=== PATIENT | male | born 1955 | race African-American/Black ===

== ENCOUNTER 2017-03-25 23:58 | Observation (INO) ==
--- NOTE | 2017-03-26 00:11 | Emergency Department Note ---
Disposition Clinical Impression: Chest pain of uncertain etiology, Neurologic abnormality Disposition: Admitted As Inpatient Condition: Fair Time of Disposition: 04:41 General Adult HPI - General Chief complaint: ED Neuro Symptoms/Deficit Stated complaint: NUMBNESS Time Seen by Provider: 03/26/17 00:03 Source: patient, EMS Limitations: no limitations Nursing Notes Reviewed: Yes Vital Signs Reviewed: Yes - History of Present Illness HPI Narrative: Mr. Sykes, a 61yo male, presents from the [facility] medical floor for evaluation of chest pain as well as right sided numbness and tingling. Onset 23:00 concomittant with patient feeling lightheaded. On intake, he denies lightheadedness, denies chest pain. Patient currently reports numbness only of the right side of his face. No slurring of speech. No difficulty chewing or handling his secretions. As his history of A. fib on anticoagulant unknown to him. No history CVA, TIA Pain Scale: 6 - Related Data Home Medications Medication Instructions Recorded Confirmed Divalproex (12 HR) [Depakote (12 1,000 mg PO BID 07/30/16 07/30/16 HR)] Fluphenazine [Prolixin] 10 mg PO TID 07/30/16 07/30/16 cloNIDine HCl [CloNIDine HCl] 0.1 mg PO DAILY 07/30/16 07/30/16 Allergies Allergy/AdvReac Type Severity Reaction Status Date / Time No Known Allergies Allergy Verified 03/25/17 23:59 All systems ED: reviewed and negative except as stated. Review of Systems: As Per HPI Past Medical History - Past Medical History Medical history: Reports: aortic aneurysm, atrial fibrillation, COPD, hyperlipidemia, hypertension, other Surgical history: Reports: non-contributory Psychiatric history: Reports: anxiety, bipolar, depression, PTSD, schizophrenia , other - Social History Smoking Status: Former smoker Smokeless Tobacco Status: No Alcohol use: Reports: none Drug use: Reports: none Physical Exam Vital Signs Reviewed General: Patient is alert, oriented, and in no acute distress. HEENT: No facial asymmetry. Head is normocephalic and atraumatic. PERRLA, EOMI. oral mucosa moist. Trachea midline. Cardiovascular: Heart regular rate and rhythm without clicks, rubs, gallops, or murmurs. No JVD. PMI nondisplaced. 1+ bilateral pitting edema. Venous stasis changes bilateral lower extremities. Respiratory: Symmetric chest rise with good respiratory effort. Bilateral breath sounds are clear without wheezing, crackles, or rhonchi. Abdomen: Bowel sounds present normoactive x-4 quadrants. Abdomen is soft, nondistended, and nontender. No organomegaly noted. Musculoskeletal: Muscle strength 5/5 and symmetric bilaterally in upper and lower extremities. Neuro: Decreased sensation to patient's right V1, V2, V3; otherwise cranial nerves II through XII intact. Sensation to light touch intact patient's upper and lower extremities bilaterally and equal. No pronator drifts. No limb drift. No slurring of speech. Appropriately and quickly answers all questions. Alert and oriented 4. GCS 15. Psych: Patient's affect is appropriate for situation. - General Limitations: no limitations General appearance: alert, in no apparent distress Course Course Narrative: Patient has strength that is intact. Sensation is intact in his extremities. His only deficit is a decreased sensation of his right face in V1, V2, V3 distribution which she described as, "not sharp." He has no slurring of speech and no facial asymmetry. We will not call a code stroke at this time. Will work patient up as if he were a stroke as well as adding chest pain workup. [facility] documentation: PMH: Systolic CHF, atrial fibrillation, DANIEL, hypertension, GERD, BPH, COPD, tobacco use, obesity, schizoaffective disorder bipolar type. Anticoagulant:apixiban Antiplatelet: None [facility]: Nose. No perfusion defects, LVEF 58%. Normal LV wall motion and perfusion. CT head is negative for acute intracranial abnormalities. Chest x-ray unremarkable. EKG shows A. fib. With no acute ST-T changes. Troponin below upper limit of normal. Patient's lab work shows a mild elevation in creatinine above his baseline. I discussed the patient with the admitting hospitalist, Dr. blaine willis, who agrees to accept the patient for chest pain rule out ACS as well as continue neurologic assessment. Chest X-Ray 03/26/17 00:04 IMPRESSION: No acute abnormality. D/ / Jose Angel Osborne MD / Jose Angel Osborne MD Interpreting Provider: Jose Angel Osborne MD Head CT 03/26/17 01:58 IMPRESSION: No acute intracranial abnormality. D/ / Tonny Ohara MD / Tonny Ohara MD Interpreting Provider: Tonny Ohara MD Vital Signs O2 Sat by Pulse Oximetry 97 03/25/17 23:58 Temperature 98.3 F 03/26/17 04:15 Pulse Rate 102 03/26/17 04:15 Respiratory Rate 18 03/26/17 04:15 Blood Pressure 128/85 03/26/17 04:15 O2 Sat by Pulse Oximetry 93 03/26/17 04:15 Oxygen Delivery Oxygen Delivery Room Air Medical Decision Making - Medical Records Medical records reviewed: Yes I reviewed the patient's medical records. - Lab Data Result diagrams: 03/26/17 00:10 03/26/17 00:10 Lab Results 03/26/17 03/26/17 03/26/17 Range/Units 00:10 00:10 00:10 WBC 10.7 (4.3-11.1) K/mcL RBC 4.86 (4.19-5.50) M/mcL Hgb 13.9 (12.9-16.9) g/dL Hct 43.1 (37.5-50.1) % MCV 88.7 (83.0-100.0) fL MCH 28.6 (28.0-33.3) pg MCHC 32.3 (31.6-35.5) g/dL RDW 15.9 H (11.5-14.5) % Plt Count 171 (140-400) K/mcL MPV 11.6 (9.4-12.4) fL Immature Gran % 0.3 (0-4) % Seg Neutrophils % 47.3 % Lymphocytes % 39.5 % Monocytes % 10.0 % Eosinophils % 2.2 % Basophils % 0.7 % Neutrophils # 5.1 (1.6-8.9) K/mcL Lymphocytes # 4.2 (0.6-4.6) K/mcL Monocytes # 1.1 (0.0-1.3) K/mcL Eosinophils # 0.2 (0.0-0.6) K/mcL Basophils # 0.1 (0.0-0.2) K/mcL PT 12.1 (9.4-12.1) Seconds INR 1.1 APTT 30.5 (26.0-36.0) Seconds Sodium 140 (136-145) mEq/L Potassium 4.2 (3.5-4.5) mEq/L Chloride 100 (98-109) mEq/L Carbon Dioxide 33 H (19-29) mEq/L BUN 24 (8-26) mg/dL Creatinine 1.44 H (0.72-1.25) mg/dL Est GFR ( Amer) > 60 (> 60) Est GFR (Non-Af Amer) 50 L (> 60) BUN/Creatinine Ratio 17 (6-26) Glucose 122 H (70-99) mg/dL Calculated Osmolality 295 (280-300) Calcium 9.5 (8.6-10.8) mg/dL Troponin I (0-0.03) ng/mL 03/26/17 Range/Units 00:10 WBC (4.3-11.1) K/mcL RBC (4.19-5.50) M/mcL Hgb (12.9-16.9) g/dL Hct (37.5-50.1) % MCV (83.0-100.0) fL MCH (28.0-33.3) pg MCHC (31.6-35.5) g/dL RDW (11.5-14.5) % Plt Count (140-400) K/mcL MPV (9.4-12.4) fL Immature Gran % (0-4) % Seg Neutrophils % % Lymphocytes % % Monocytes % % Eosinophils % % Basophils % % Neutrophils # (1.6-8.9) K/mcL Lymphocytes # (0.6-4.6) K/mcL Monocytes # (0.0-1.3) K/mcL Eosinophils # (0.0-0.6) K/mcL Basophils # (0.0-0.2) K/mcL PT (9.4-12.1) Seconds INR APTT (26.0-36.0) Seconds Sodium (136-145) mEq/L Potassium (3.5-4.5) mEq/L Chloride (98-109) mEq/L Carbon Dioxide (19-29) mEq/L BUN (8-26) mg/dL Creatinine (0.72-1.25) mg/dL Est GFR ( Amer) (> 60) Est GFR (Non-Af Amer) (> 60) BUN/Creatinine Ratio (6-26) Glucose (70-99) mg/dL Calculated Osmolality (280-300) Calcium (8.6-10.8) mg/dL Troponin I 0.01 (0-0.03) ng/mL - EKG Data EKG #1 EKG attestation: Yes I reviewed and interpreted this EKG. EKG results narrative: EKG dated 03/26/17 at 00:05 interpreted as atrial fibrillation with RVR; rate of 105. Normal axis. Appropriately narrow QRS complex. Specific ST-T changes. Compared to previous dated 07/31/2016 showing no acute ischemic changes comparison. Attestation Statement - Attestation Attestation: I, Jaime Valadez MD, personally evaluated this patient and discussed their management with the resident physician. I reviewed the resident's note and agree with the documented findings, medical decision making, and plan of care. 61-year-old male who was transferred here from the [facility] for evaluation of chest pain and also possible stroke symptoms. Patient has a history of atrial fibrillation with RVR. He apparently has chronic atrial fibrillation and is anticoagulated on Eliquis. Tonight he complained of some chest pain and the hospitalist reports that when she went to examine him for the chest pain while she was checking him he complained that he felt very lightheaded and developed numbness and tingling in the right side of his face and his right arm and his right leg. He had no weakness. No facial droop. No slurred speech. EKG at the [facility] just showed atrial fibrillation. Patient referred here for further evaluation of his chest pain and numbness. On arrival here patient only complains of numbness in the right side of his face and a little tingling in his right foot. The arm has resolved and the mid leg has mostly resolved. The chest pain was in the left shoulder area radiating down towards the sternum. This has also resolved. He denies any shortness of breath or diaphoresis. No palpitations. No syncope. On examination patient is a well-developed well-nourished male in no acute distress. He is alert and oriented 3. There is no diaphoresis. Chest is nontender to palpation. Breath sounds are clear and equal bilaterally. Heart irregularly irregular. Normal rate. Abdomen soft and nontender with normal bowel sounds. No gross focal neurological deficits. Equal car electronics installer strength bilaterally. Head CT negative. Chest x-ray negative. EKG shows atrial fibrillation with RVR. No acute changes noted. Labs reviewed. The hospitalist, Dr. Capone, was consulted and accepted the admission of the patient. NIH Stroke Scale - Level of Consciousness LOC: Alert - LOC Questions LOC Questions: Answers both correctly - LOC Commands LOC Commands: Performs both correctly - Best Gaze Best Gaze: Normal - Visual Visual: No visual loss - Facial Palsy Facial Palsy: Normal - Motor Arms Motor Arm-Left: No drift for 10 seconds Motor Arm-Right: No drift for 10 seconds - Motor Legs Motor Leg-Left: No drift for 5 seconds Motor Leg-Right: No drift for 5 seconds - Limb Ataxia Limb Ataxia: Absent of affected limb too weak to perform exam - Sensory Sensory: Mild to moderate loss, "not as sharp" - Best Language Best Language: No aphasia - Dysarthria Dysarthria: Normal - Extinction and Inattention Extinction and Inattention: Normal - NIHSS Total Score NIHSS Total Score: 1
[2017-03-26 00:23] LABS: Basophils # 0.1 K/mcL (0.0-0.2); Basophils % 0.7 %; Eosinophils # 0.2 K/mcL (0.0-0.6); Eosinophils % 2.2 %; Hematocrit 43.1 % (37.5-50.1); Hemoglobin 13.9 g/dL (12.9-16.9); Immature Granulocytes % 0.3 % (0-4); Lymphocytes # 4.2 K/mcL (0.6-4.6); Lymphocytes % 39.5 %; Mean Corpuscular HGB Conc 32.3 g/dL (31.6-35.5); Mean Corpuscular Hemoglobin 28.6 pg (28.0-33.3); Mean Corpuscular Volume 88.7 fL (83.0-100.0); Mean Platelet Volume 11.6 fL (9.4-12.4); Monocytes # 1.1 K/mcL (0.0-1.3); Neutrophils # 5.1 K/mcL (1.6-8.9); Platelet Count 171 K/mcL (140-400); Red Blood Count 4.86 M/mcL (4.19-5.50); Red Cell Distribution Width 15.9 % (11.5-14.5); Segmented Neutrophils % 47.3 %
[2017-03-26 00:29] LABS: INR 1.1; Prothrombin Time 12.1 Seconds (9.4-12.1)
[2017-03-26 00:31] LABS: Activated Partial Thrombo Time 30.5 Seconds (26.0-36.0)
[2017-03-26 00:35] LABS: BUN/Creatinine Ratio 17 (6-26); Blood Urea Nitrogen 24 mg/dL (8-26); Calcium 9.5 mg/dL (8.6-10.8); Carbon Dioxide 33 mEq/L (19-29); Chloride 100 mEq/L (98-109); Glucose 122 mg/dL (70-99); Osmolality,Calculated 295 (280-300); Potassium 4.2 mEq/L (3.5-4.5); Sodium 140 mEq/L (136-145); eGFR For African Americans > 60 (> 60); eGFR For Non-African Americans 50 (> 60)
[2017-03-26] MEDS ORDERED: Acetaminophen 325 MG TABLET PO PRN (04:55)
[2017-03-26] MEDS ORDERED: Naloxone 0.4 MG/ML INJ IVP PRN (04:55)
[2017-03-26] MEDS ORDERED: Ondansetron 4 MG/2 ML VIAL IVP PRN (04:55)
[2017-03-26] MEDS ORDERED: *HR* HYDROcodone/Acet 5/325 mg TABLET PO PRN (04:55)
--- NOTE | 2017-03-26 05:05 | Internal Med History&Physical ---
Date of Encounter: 03/26/17 Time of Encounter: 05:02 Assessment and Plan (1) Transient ischemic attack Current visit: Yes Status: Acute Patient describes sudden onset right-sided numbness of the upper extremity and right side of the face as well as some nonspecific bilateral lower extremity and feet numbness. We will admit to the hospital. Perform frequent neurologic checks per protocol. Start telemetry. Obtain MRI of the head and MRA of the head and neck. Echocardiogram. Start aspirin. Bedside swallow evaluation. PT OT. Qualifiers: Transient cerebral ischemia type: carotid artery syndrome (hemispheric) Qualified Code(s): G45.1 - Carotid artery syndrome (hemispheric) (2) CHF (congestive heart failure) Current visit: Yes Status: Acute He was being treated at [facility] for CHF. Currently appears euvolemic. We will obtain updated medication list from the [facility] and resume while inpatient. Qualifiers: Congestive heart failure type: diastolic Congestive heart failure chronicity: chronic Qualified Code(s): I50.32 - Chronic diastolic (congestive ) heart failure (3) Chronic a-fib Current visit: Yes Status: Acute Continue chronic anticoagulation with Alquist. (4) Schizophrenia Current visit: No Status: Acute Update psychiatric medication list from the [facility] records and resume home regimen. Qualifiers: Schizophrenia type: unspecified Qualified Code(s): F20.9 - Schizophrenia, unspecified (5) Chest pain of uncertain etiology Current visit: Yes Status: Acute Trend troponin to rule out ACS. Internal Medicine - H&P: HPI Chief complaint: Right-sided numbness Admitted From: Emergency Dept Plans for Post Hospital Care: Home History of present illness: Mr. Sykes is a 61 year old male with past medical history significant for atrial fibrillation, hypertension and CHF who presented to the hospital sent from the inpatient alberto at the [facility] for evaluation of right sided numbness. He started having bilateral leg and feet numbness and arm numbness mostly on the right side as well as facial numbness which started last night around 7 PM. He denies any associated chest pain shortness of breath vision loss or headache. He was sent to be evaluated in our hospital. On presentation his NIH stroke scale was 1. He was not a candidate for TPA due to timing of his symptoms. He was referred for admission. A 10 point review of systems was negative. Family history pertinent for colon cancer in the patient's father. Social history: Remote history of smoking, denies alcohol or drug use. Past Med Surg Social Fam HX - Past Medical History Medical history: aortic aneurysm, atrial fibrillation, COPD, hyperlipidemia, hypertension, other Psychiatric history: anxiety, bipolar, depression, PTSD, schizophrenia, other - Past Surgical History Surgical History: non-contributory - Social History Smoking Status: Former smoker Smokeless Tobacco Status: No Alcohol use: none Drug use: none Internal Medicine - H&P: Meds Divalproex (12 HR) [Depakote (12 HR)] 1,000 mg PO BID 07/30/16 [History] Fluphenazine [Prolixin] 10 mg PO TID 07/30/16 [History] cloNIDine HCl [CloNIDine HCl] 0.1 mg PO DAILY 07/30/16 [History] 3 Allergy/AdvReac Type Severity Reaction Status Date / Time No Known Allergies Allergy Verified 03/25/17 23:59 All Systems PM: A 10-system review of systems was performed and is negative for pertinent findings except as documented above in the HPI. - Constitutional Vitals: Temp Pulse Resp BP Pulse Ox 98.3 F 102 18 128/85 93 03/26/17 04:15 03/26/17 04:15 03/26/17 04:15 03/26/17 04:15 03/26/17 04:15 General appearance: Present: A&O X 3, no acute distress - Eye Eye exam: Present: PERRL, conjuntiva pink, sclera anicteric Pupils: Present: PERRL - Respiratory Respiratory exam: Present: CTAB. Absent: accessory muscle use, rales, rhonchi, wheezes - Cardiovascular Cardiovascular exam: Present: irregular rhythm, +S1, +S2. Absent: diastolic murmur, gallop, rubs, systolic murmur - GI/Abdominal GI/Abdominal exam: Present: normal bowel sounds, soft, no peritoneal signs. Absent: distended, tenderness - Extremities Exam Extremities exam: Present: warm, radial pulses palpable and symmetrical. Absent : calf tenderness, cyanotic, pedal edema - Neurological Exam Neurological exam: Present: alert, CN II-XII intact, oriented X3, no focal deficits, strengths equal and symetr throughout. Absent: altered, motor sensory deficit, pronater drift, facial droop, speech deficit - Skin Skin exam: Present: dry, intact Internal Med - H&P Results - Labs CBC & Chem 7: 11/26/17 00:10 03/26/17 00:10 - EKG Data -: EKG Interpreted by Myself (Atrial fibrillation RVR 10 5 bpm, nonspecific ST and T wave changes.)
[2017-03-26] MEDS: Aspirin 81 MG TAB.CHEW PO SCH (11:31)
[2017-03-26] MEDS: APIXABAN 5 MG TABLET PO SCH ×2 (11:31→20:59)
[2017-03-27 04:07] LABS: Basophils # 0.1 K/mcL (0.0-0.2); Basophils % 0.9 %; Eosinophils # 0.2 K/mcL (0.0-0.6); Eosinophils % 2.2 %; Hematocrit 40.1 % (37.5-50.1); Hemoglobin 12.8 g/dL (12.9-16.9); Immature Granulocytes % 0.4 % (0-4); Lymphocytes # 3.4 K/mcL (0.6-4.6); Lymphocytes % 37.4 %; Mean Corpuscular HGB Conc 31.9 g/dL (31.6-35.5); Mean Corpuscular Hemoglobin 28.6 pg (28.0-33.3); Mean Corpuscular Volume 89.7 fL (83.0-100.0); Mean Platelet Volume 11.3 fL (9.4-12.4); Neutrophils # 4.4 K/mcL (1.6-8.9); Platelet Count 148 K/mcL (140-400); Red Blood Count 4.47 M/mcL (4.19-5.50); Red Cell Distribution Width 15.9 % (11.5-14.5); Segmented Neutrophils % 48.1 %
[2017-03-27 04:26] LABS: BUN/Creatinine Ratio 21 (6-26); Blood Urea Nitrogen 22 mg/dL (8-26); Calcium 9.2 mg/dL (8.6-10.8); Carbon Dioxide 30 mEq/L (19-29); Chloride 104 mEq/L (98-109); Chol/HDL Ratio 4.3 (0-4.9); Cholesterol 158 mg/dL (< 200); Glucose 95 mg/dL (70-99); HDL Cholesterol 37 mg/dL (40-59); LDL Cholesterol,Calculated 101 mg/dL (0-99); Magnesium 2.1 mg/dL (1.6-2.6); Osmolality,Calculated 291 (280-300); Potassium 4.3 mEq/L (3.5-4.5); Sodium 139 mEq/L (136-145); Triglycerides 98 mg/dL (< 150); eGFR For African Americans > 60 (> 60); eGFR For Non-African Americans > 60 (> 60)
[2017-03-27] MEDS: Aspirin 81 MG TAB.CHEW PO SCH (09:11)
[2017-03-27] MEDS: APIXABAN 5 MG TABLET PO SCH ×2 (09:11→22:04)
[2017-03-27] MEDS: Divalproex (12 HR) 500 MG TABLET PO SCH (09:11)
--- NOTE | 2017-03-27 16:11 | Discharge Summary ---
Date of Encounter: 03/27/17 Time of Encounter: 11:00 - Discharge Diagnosis (1) Neurologic abnormality Priority: Primary Status: Acute - Discharge Medications Home Medications: Ammonium Lactate [Amlactin] 1 appl TP DAILY 03/27/17 [History] Levalbuterol Neb [Xopenex Neb] 1.25 mg IH Q4H 03/27/17 [History] Allergies/Adverse Reactions: 3 Allergy/AdvReac Type Severity Reaction Status Date / Time No Known Allergies Allergy Verified 03/25/17 23:59 Procedures/tests Complete & Pending: Procedures Performed prior 72 hours Category Date Time Status MR angio head wo con [MR] Routine MRI 03/27/17 04:57 Draft MR angio neck wo/w con [MR] Routine MRI 03/27/17 04:57 Draft MR head/brain wo con [MR] Routine MRI 03/27/17 04:57 Draft EV echocardiogram Routine Y 03/26/17 04:59 Completed Date of admission: 03/26/17 03:45 [facility] care physician: [facility] Consults: 03/26/17 04:56 Consult to Occupational Therapy [CONS] Routine Comment: Evaluate, develop and implement POC Reason for Consult: TIA Consult to Physical Therapy [CONS] Routine Comment: Evaluate, develop and implement POC Reason for Consult: TIA - Patient Status Disposition: Transfer [facility] Condition: Fair - Discharge Instructions Follow Up With: [facility] [Primary Care Provider] - Hospital course: Patient is a 61-year-old male with past medical history significant for atrial fibrillation, hypertension and CHF who presented to the ER on 03/26/17 from the [facility] for evaluation of right sided altered sensation. Patient experienced bilateral altered sensation in the right upper and lower extremity in addition to altered facial sensation that occurred the evening of admission. He was sent to [facility] for evaluation. On presentation his NIH stroke scale was 1. He was not a candidate for TPA due to timing of his symptoms. He was admitted to the medical floor for further workup and evaluation. During patients hospital stay, his symptoms resolved and workup was negative including no acute findings on MRI of the brain or MRA of neck/head; echocardiogram without any significant findings as well. Patient will be discharged back to the [facility] unit at the [facility]. - Time Spent with Patient Total time spent providing and/or coordinating discharge services: Less than 30 minutes - Constitutional Vitals: Temp Pulse Resp BP Pulse Ox 98.2 F 66 16 158/101 93 03/27/17 15:17 03/27/17 15:17 03/27/17 15:17 03/27/17 15:17 03/27/17 15:17 General appearance: Present: A&O X 3, no acute distress - Neurological Exam Neurological exam: Present: oriented X3, no focal deficits. Absent: facial droop, speech deficit
--- NOTE | 2017-03-27 16:12 | Physician Discharge Referral ---
ExtendedCare Referral Info Transfer To: [facility] at the [place] - Diagnosis (1) Neurologic abnormality Status: Acute - Transfer Medications Home Medications: Ammonium Lactate [Amlactin] 1 appl TP DAILY 03/27/17 [History] Levalbuterol Neb [Xopenex Neb] 1.25 mg IH Q4H 03/27/17 [History] Allergies/Adverse Reactions: 3 Allergy/AdvReac Type Severity Reaction Status Date / Time No Known Allergies Allergy Verified 03/25/17 23:59 - Respiratory Orders Smoking Cessation: Smoking cessation has been advised. For more information, call the [place] Tobacco Quit Line at 2-683-PXIYNOW. CERTIFICATION: I certify that the transfer of the above named patient to an Extended Care Facility is necessary for the continuing treatment of the diagnosis listed. The above information is true and accurate reflection of patient's current condition. Confidential - Redisclosure prohibited without a patient's written consent.
--- NOTE | 2017-03-27 20:02 | Electrocardiograph Report ---
[address] [place], [place] [address] Test Date: 2017-03-26 Pat Name: Yonathan Sykes Department: 104 Room: 3B43 Gender: M Graphic Arts Technician: Sage : 1955 Requested By: Marco Antonio Álvarez Order Number: [id number] Reading MD: Diaz Pina MD Measurements Intervals Warren Rate: 105 P: ME: 0 QRS: 51 QRSD: 83 T: 46 QT: 342 QTc: 403 Interpretive Statements ATRIAL FIBRILLATION WITH RAPID VENTRICULAR RESPONSE Electronically Signed On 03-27-2017 20:00:20 EST by Diaz Pina MD
[2017-03-28 07:03] VITALS: BP 151/121
[2017-03-28] MEDS: APIXABAN 5 MG TABLET PO SCH (08:10)
[2017-03-28] MEDS: Divalproex (12 HR) 500 MG TABLET PO SCH (08:10)
[2017-03-28] MEDS: Aspirin 81 MG TAB.CHEW PO SCH (08:10)
[2017-03-28] MEDS ORDERED: amLODIPine 5 MG TABLET PO SCH (09:00)
== END 2017-03-28 10:17 ==
LOC: EMEROO 23:58 → 3BNU 23:58 → SUATTDRO 03-26 03:45 → 3BNU 03-26 04:07
PROVIDERS: ADMIT Internal Medicine; ATTEND Hospitalist

== ENCOUNTER 2017-11-12 11:50 | Inpatient (IN) ==
[~2017-11-12 11:50] MED LIST: *HR* Etomidate 20 MG/10 ML AMPUL IVP ONE; *HR* Etomidate 40 MG/20 ML VIAL IVP ONE; *HR* Midazolam HCl 5 MG/5 ML VIAL IVP ONE; *HR* Succinylcholine 200 MG/10 ML VIAL IVP ONE
[2017-11-12] MEDS ORDERED: *HR* FentaNYL (PF) 100 MCG/2 ML VIAL ONE (14:25)
[2017-11-12] MEDS ORDERED: *HR* FentaNYL (PF) 100 MCG/2 ML VIAL IVP ONE (14:27)
[2017-11-12 14:46] LABS: ABG Base Excess 13 mEq/L (-2 to 3); ABG HCO3 44 mEq/L (21-27); ABG Oxygen Saturation 88 % (95-98); ABG PCO2 85 mmHg (35-45); ABG PH 7.32 pH Units (7.32-7.45); ABG PO2 62 mmHg (85-104); ABG TCO2 47 mEq/L (20-26); Blood Gas Modality AF; Blood Gas Respiration Rate 16; Blood Gas VT 550 cc
[2017-11-12] MEDS ORDERED: Naloxone 0.4 MG/ML INJ IVP PRN (14:50)
[2017-11-12] MEDS ORDERED: Lacri-Lube 3.5 GM TUBE BOTH EYES PRN (14:51)
--- NOTE | 2017-11-12 14:59 | Procedure Note ---
Date of procedure: 11/12/17 Pre-op diagnosis: critically ill Post-op diagnosis: same Procedure: Central Line Procedure Note: Central Venous Catheter Insertion Indication: Critically ill difficult venous access Attending Physician: Dr. Skaggs Lobsterman: Elijah Goyal Indication: This is a 62 year-old male with respiratory failure. Consent: Detailed explanation of the procedure, treatment options, risks including but not limited to infection and bleeding, and benefits were explained to the [default value]. A written informed consent was obtained. Technique: A time out was preformed identifying the correct procedure, the correct location with the nursing staff. The left groin was prepped with 2% chlorhexidine and draped with a full length sterile sheet in the usual fashion. The for moral vein was accessed under ultrasound guidance with an 18 gauge thin wall needle. A triple lumen was inserted via the seldinger technique. Blood was withdrawn from all lumens and flushed with normal saline. The catheter was sutured in place and a sterile dressing was applied over the site prior to removal of drapes. The patient tolerated the procedure well and there were no complications. Chest x ray: [default value] EBL: 5 mL Complication: I was unable to fully pass the catheter into the site and hub the catheter to the skin so this was pulled and we attempted a right IJ which was successful Anesthesia: IV sedation Surgeon: Elijah Goyal Was there an nurses assistant present: No Estimated blood loss (cc): 5 Specimen: none Pathology: none sent Condition: critical Disposition: ICU
--- NOTE | 2017-11-12 15:02 | Procedure Note ---
Date of procedure: 11/12/17 Pre-op diagnosis: Acute respiratory failure Post-op diagnosis: same Procedure: Central Line Procedure Note: Central Venous Catheter Insertion Indication: Critically ill difficult venous access Attending Physician: Dr. Skaggs Custom Leather Products Maker: Elijah Goyal Indication: This is a 62 year-old male with respiratory failure. Consent: Detailed explanation of the procedure, treatment options, risks including but not limited to infection and bleeding, and benefits were explained to the family and POA signed consent. A written informed consent was obtained. Technique: A time out was preformed identifying the correct procedure, the correct location with the nursing staff. The right neck was prepped with 2% chlorhexidine and draped with a full length sterile sheet in the usual fashion. The internal jugular vein was accessed under ultrasound guidance with an 18 gauge thin wall needle. A triple lumen was inserted via the seldinger technique. Blood was withdrawn from all lumens and flushed with normal saline. The catheter was sutured in place and a sterile dressing was applied over the site prior to removal of drapes. The patient tolerated the procedure well and there were no complications. Chest x ray: Confirmed placement] EBL: 5 mL Complication: None Anesthesia: IV sedation Surgeon: Elijah Goyal Was there an senior care assistant present: No Estimated blood loss (cc): 5 Specimen: None Pathology: none sent Condition: critical Disposition: ICU
--- NOTE | 2017-11-12 15:11 | Pulmonology History & Physical ---
Addendum entered and electronically signed by Heaven Tee 11/12/17 16:27: - Attending Attestation Addendum: Chest x-ray was obtained which indicated that the central venous catheter in the right IJ terminated in the right brachiocephalic vein. Dr. Skaggs reviewed the images and believes that it terminates in the SVC above the right atrium. A repeat chest x-ray was obtained to assess ET tube position after it was corrected, we will recheck the position of the IJ at this time as well and correct if necessary. Original Note: <Heaven Tee - Last Filed: 11/12/17 16:25> Date of Encounter: 11/12/17 Time of Encounter: 14:58 Assessment and Plan (1) Acute on chronic respiratory failure with hypercapnia Current visit: Yes Status: Acute Patient was admitted to the [facility]2017 with respiratory failure. ABGs at that time were 7.28/98/72 Patient was started on BiPAP therapy, patient's respiratory status did not improve and he was transferred to [facility] ICU patient was intubated for respiratory support, ABGs collected at this time were 7.32/85/62 Patient continues to remain hypercapnic with respiratory acidosis Patient will be managed on ventilator support to improve respiratory status Patient has a history of COPD and CHF. Current status is likely secondary to both comorbidities. He will be diuresed with Lasix as he has pitting edema in all 4 extremities as well as evidence of hepatic congestion. He will also receive DuoNeb therapy and steroids for COPD. (2) CHF (congestive heart failure) Current visit: No Status: Acute Patient has a history of CHF Echo January 2017 revealed ejection fraction of 50-55% On physical exam patient has evidence of pitting edema in all 4 extremity and hepatic congestion He will receive 40 of Lasix now and we will assess for response We will obtain repeat echo during the stay Qualifiers: Qualified Code(s): I50.32 - Chronic diastolic (congestive) heart failure (3) COPD (chronic obstructive pulmonary disease) Current visit: Yes Status: Acute Per [facility] records patient has a history of COPD, and may not be compliant with his at-home treatment Patient has been intubated for respiratory support, he will receive DuoNeb therapy and steroids He does not have any evidence on chest x-ray or labs for a pneumonia at this time. Qualifiers: Qualified Code(s): J44.9 - Chronic obstructive pulmonary disease, unspecified (4) Encephalopathy Current visit: Yes Status: [facility] patient has been encephalopathic/delirious during his stay Currently he is alert however he is not oriented to his surroundings or himself. He did have an elevated ammonia level and received lactulose at the [facility]. We will repeat a dose of lactulose and obtain an ammonia level It is unknown at this time if he has any history of liver failure, it is possible that elevated ammonia may be secondary to hepatic injury from vascular congestion from CHF. Once patient is stable we will also obtain a head CT (5) Chronic a-fib Current visit: No Status: Acute Patient has a history of A. fib [facility] the [facility] patient is on apixaban and diltiazem. (6) Schizophrenia Current visit: No Status: Chronic [facility] the [facility] patient was treated with haloperidol during his stay at the [facility] Continue to monitor mental status, obtaining CT head. It is less likely the patient's acute change in mental status is secondary to his psychiatric history. Qualifiers: Schizophrenia type: unspecified Qualified Code(s): F20.9 - Schizophrenia, unspecified History of Present Illness Chief complaint: CHF exacerbation HPI: Mr. Sykes is a 62 year old male with past medical history of COPD and CHF who was transferred from the [facility] for respiratory failure. Patient was initially admitted on 11/06/2017 to the [facility] with a COPD exacerbation and acute hypercarbic respiratory failure. ABGs at that time were 7.28/98/72. He he was also markedly encephalopathic/delirious during his stay at the [facility]. He was also suspected to have a component of CHF as he had pitting edema and a BNP of 3967 on admission and an echo from January 2017 showed ejection fraction of 50-55%. Patient was placed on BiPAP. Unfortunately patient little improvement, and over time his respiratory status declined. Today it was decided the patient would benefit from being ventilated and by receiving hemodynamic and respiratory support. Patient was transferred to [facility] or higher level of care. Patient arrived via EMS directly to the ICU, patient was awake but not alert. Patient only responded to painful stimuli with grunts and by pulling away his extremities. He had a single IV access site in place which was not functioning. Past Med Surg Social Fam HX - Past Medical History Medical history: aortic aneurysm, atrial fibrillation, COPD, hyperlipidemia, hypertension, other Additional medical history: tuberculosis, hepatitis C Psychiatric history: anxiety, bipolar, depression, PTSD, schizophrenia, other - Past Surgical History Surgical History: non-contributory Additional surgical history: Femur surgery - Social History Smoking Status: Current every day smoker Smokeless Tobacco Status: No Alcohol use: none Drug use: none - Family History Mother Living Status: Father Adopted: No Family Member Ethnicity: Non- Living Status: Hx Family Cardiac Disorders: No Hx Family Respiratory Disorders: No Hx Family Cancer: Yes Hx Family GI Disorders: No Hx Family Endocrine Disorder: No Medications and Allergies 3 Allergy/AdvReac Type Severity Reaction Status Date / Time No Known Allergies Allergy Verified 03/25/17 23:59 ROS unobtainable: due to endotracheal tube, due to mental status All Systems: The remainder of the systems were reviewed and are negative Physical Examination General appearance: other (Patient is awake however he is not alert or oriented) Eyes: nonicteric ENT: oropharynx moist Neck: supple Effort: other (Patient was on BiPAP with audible rhonchorous breath sounds and clear sputum production.) Auscultation: bilateral: rhonchi Cardiovascular: irregular rhythm Gastrointestinal: other (Abdomen is diffusely distended, liver is palpable in the right upper quadrant) Integumentary: other (Ecchymosis present in the right anterior cubital fossa.) Extremities: other (Pitting edema in all 4 extremities) Musculoskeletal: other (Pitting edema) other (Patient is awake however he is not alert.) Results - Laboratory Findings ABG ABG pH 7.32 pH Units (7.32-7.45) 11/12/17 14:40 ABG pCO2 85 mmHg (35-45) H* 11/12/17 14:40 ABG pO2 62 mmHg (85-104) L 11/12/17 14:40 ABG O2 Saturation 88 % (95-98) L 11/12/17 14:40 Abnormal lab findings: Abnormal lab results ABG pCO2 85 mmHg (35-45) H* 11/12/17 14:40 ABG pO2 62 mmHg (85-104) L 11/12/17 14:40 ABG HCO3 44 mEq/L (21-27) H 11/12/17 14:40 ABG Total CO2 47 mEq/L (20-26) H 11/12/17 14:40 ABG O2 Saturation 88 % (95-98) L 11/12/17 14:40 ABG Base Excess 13 mEq/L (-2 to 3) H 11/12/17 14:40 - Diagnostic Findings Chest x-ray: report reviewed, image reviewed <David Skaggs T - Last Filed: 11/12/17 16:50> Date of Encounter: 11/12/17 All Systems: The remainder of the systems were reviewed and are negative Physical Examination Vital Signs: Vital Signs, Last 4 Hours Temp Pulse Resp BP Pulse Ox 11/12/17 16:00 94 16 94/71 100 11/12/17 15:36 16 144/105 96 11/12/17 15:00 118 16 144/105 90 11/12/17 14:30 16 91 11/12/17 14:00 98 F 116 22 121/95 94 11/12/17 13:22 98 F 110 24 77/53 94 Results - Laboratory Findings CBC and BMP: 11/12/17 15:00 11/12/17 15:00 ABG ABG pH 7.32 pH Units (7.32-7.45) 11/12/17 14:40 ABG pCO2 85 mmHg (35-45) H* 11/12/17 14:40 ABG pO2 62 mmHg (85-104) L 11/12/17 14:40 ABG O2 Saturation 88 % (95-98) L 11/12/17 14:40 PT/INR, D-dimer PT 15.1 Seconds (9.4-12.1) H 11/12/17 15:00 Abnormal lab findings: Abnormal lab results MCH 25.9 pg (28.0-33.3) L 11/12/17 15:00 MCHC 31.2 g/dL (31.6-35.5) L 11/12/17 15:00 RDW 18.2 % (11.5-14.5) H 11/12/17 15:00 Plt Count 133 K/mcL (140-400) L 11/12/17 15:00 Nucleated RBCs/100 WBC 0.3 /100 WBC (0) H 11/12/17 15:00 PT 15.1 Seconds (9.4-12.1) H 11/12/17 15:00 ABG pCO2 85 mmHg (35-45) H* 11/12/17 14:40 ABG pO2 62 mmHg (85-104) L 11/12/17 14:40 ABG HCO3 44 mEq/L (21-27) H 11/12/17 14:40 ABG Total CO2 47 mEq/L (20-26) H 11/12/17 14:40 ABG O2 Saturation 88 % (95-98) L 11/12/17 14:40 ABG Base Excess 13 mEq/L (-2 to 3) H 11/12/17 14:40 Potassium 3.4 mEq/L (3.5-5.1) L 11/12/17 15:00 Chloride 96 mEq/L (98-107) L 11/12/17 15:00 Carbon Dioxide 41 mEq/L (23-29) H* 11/12/17 15:00 BUN 39 mg/dL (8-23) H 11/12/17 15:00 BUN/Creatinine Ratio 35 (6-26) H 11/12/17 15:00 Glucose 106 mg/dL (70-105) H 11/12/17 15:00 Calculated Osmolality 302 (280-300) H 11/12/17 15:00 Ammonia 64 mcmol/L (16-53) H 11/12/17 15:00 Albumin 3.2 g/dL (3.5-5.7) L 11/12/17 15:00 Globulin 3.6 g/dL (2.4-3.5) H 11/12/17 15:00 Albumin/Globulin Ratio 0.9 (1.1-2.2) L 11/12/17 15:00 Urine Protein 30 mg/dL (Neg-Trace) H 11/12/17 14:59 Urine Microscopic WBC 3-5 per hpf (0-3) H 11/12/17 14:59 Ur Squamous Epith Cells Many per lpf (None-Few) H 11/12/17 14:59 - Attending Attestation I have independently seen and examined the patient. I was at the bedside throughout the critical care this patient 90 minutes. 62-year-old male who had been inpatient from the [facility], transferred here for encephalopathy secondary to acute hypoxic and hypercapnic respiratory failure, hepatic encephalopathy, CHF exacerbation with anasarca. On arrival the patient was disoriented, and not responsive. He grunts to noxious stimuli. He has no jaundice, diminished air sounds bilaterally with diffuse crackles. Heart sounds S1 and S2. Abdomen was soft and nontender hepatomegaly plus plus, bilateral upper and lower extremity pitting pedal edema. The patient was transferred without of functioning peripheral line, we placed a femoral left central venous catheter which was lost, and placed a right IJ CVC, emergently intubated the patient. He is admitted to critical care unit for management of acute hypoxic and hypercapnic respiratory failure, acute encephalopathy secondary to hypoxia, hypercapnia, and elevated ammonia, hypoxic encephalopathy, CHF exacerbation, suspect hospital-acquired pneumonia, Patient has a history of atrial fibrillation and schizophrenia which are chronic. Continue mechanical ventilation and ICU care, obtain stat ABG in the next 2 hours, Lasix twice a day, acetazolamide 500 mg IV 3 doses, continue lactulose, vancomycin and Zosyn after cultures have been drawn, chest, abdomen and pelvis CAT scan. 90 minutes of critical care provided was present prior to procedures. Rest of details as in the resident physicians documentation.
[2017-11-12 15:16] LABS: Bilirubin,Urine Negative (Negative); Blood,Urine Negative (Negative); Clarity,Urine Clear (Clear); Color,Urine Yellow (Yellow); Glucose,Urine (UA) Normal (Normal); Ketones,Urine Negative (Negative); Leukocyte Esterase,Urine Negative (Negative); Nitrite,Urine Negative (Negative); Protein,Urine 30 mg/dL (Neg-Trace); Specific Gravity,Urine 1.022 (1.010-1.025); Urobilinogen,Urine Normal (Normal)
[2017-11-12 15:18] LABS: Basophils % 0.1 %; Eosinophils # 0.1 K/mcL (0.0-0.6); Eosinophils % 0.5 %; Hematocrit 43.9 % (37.5-50.1); Hemoglobin 13.7 g/dL (12.9-16.9); Immature Granulocytes % 0.9 % (0-4); Lymphocytes # 2.2 K/mcL (0.6-4.6); Lymphocytes % 22.7 %; Mean Corpuscular HGB Conc 31.2 g/dL (31.6-35.5); Mean Corpuscular Hemoglobin 25.9 pg (28.0-33.3); Mean Corpuscular Volume 83.1 fL (83.0-100.0); Mean Platelet Volume 11.5 fL (9.4-12.4); Monocytes # 1.2 K/mcL (0.0-1.3); Monocytes % 11.9 %; Neutrophils # 6.3 K/mcL (1.6-8.9); Nucleated Red Blood Cells 0.3 /100 WBC (0); Platelet Count 133 K/mcL (140-400); Red Blood Count 5.28 M/mcL (4.19-5.50); Red Cell Distribution Width 18.2 % (11.5-14.5); Segmented Neutrophils % 63.9 %
[2017-11-12 15:19] LABS: Bacteria,Urine None Seen per hpf (None-Few); Hyaline Casts,Urine None Seen per lpf (None-Few); RBC,Urine 0-3 per hpf (0-3); Squamous Epithelial Cell,Urine Many per lpf (None-Few)
[2017-11-12 15:23] LABS: INR 1.3; Prothrombin Time 15.1 Seconds (9.4-12.1)
[2017-11-12] MEDS: FentaNYL (PF) 1,000 MCG in 0.9 % Sodium Chloride 80 ML IVC SCH ×2 (15:25→21:59)
[2017-11-12 15:26] LABS: Activated Partial Thrombo Time 29.2 Seconds (26.0-36.0)
[2017-11-12] MEDS: Dexmedetomidine HCl 400 MCG/100 ML MLS IVC SCH ×2 (15:34→21:59)
[2017-11-12 15:40] LABS: Alanine Aminotransferase 11 Units/L (7-52); Albumin 3.2 g/dL (3.5-5.7); Albumin/Globulin Ratio 0.9 (1.1-2.2); Alkaline Phosphatase 69 Units/L (34-104); Aspartate Amino Transferase 22 Units/L (13-39); BUN/Creatinine Ratio 35 (6-26); Bilirubin,Total 0.7 mg/dL (0.3-1.0); Blood Urea Nitrogen 39 mg/dL (8-23); Carbon Dioxide 41 mEq/L (23-29); Chloride 96 mEq/L (98-107); Globulin 3.6 g/dL (2.4-3.5); Glucose 106 mg/dL (70-105); Osmolality,Calculated 302 (280-300); Potassium 3.4 mEq/L (3.5-5.1); Sodium 141 mEq/L (136-145); Total Protein 6.8 g/dL (6.4-8.9); eGFR For African Americans > 60 (> 60); eGFR For Non-African Americans > 60 (> 60)
--- NOTE | 2017-11-12 15:53 | Procedure Note ---
Date of procedure: 11/12/17 Pre-op diagnosis: Respiratory failure Post-op diagnosis: same Procedure: Procedure: Endotracheal intubation Date: 11/12/2017 Time: 18:21 Casting Associate: Dr. Heaven Tee DO Attending: Dr. Giles MD Indication:Respiratory Failure The patient was placed in supine position. All equipment was checked and operational before beginning the procedure. Sedation was obtained using 50 etomidate, 100 fentanyl, and 10 versed over two attempts. Patient was paralyzed using 150 Succinylcholine. The patient was easily ventilated using an Ambu bag. There are laryngoscope using a D blade was inserted into the oropharynx at which time a grade 1 view of the vocal cords was visualized. A 7.5cm Italian endotracheal tube was inserted and visualized going through the cords. The stylet was removed. Colorimetric change was visualized on the CO2 meter. Breath sounds were heard in both lung gates. There were no breast breath sounds auscultated over the stomach. The endotracheal tube was placed at 21 cm at the lip line. Attending physician Dr. Skaggs was in attendance throughout the entirety of the procedures. A chest x-ray was ordered afterwards to assess for pneumothorax and placement of the endotracheal tube. The ET tube was found to be 11cm above the jesus alberto. The ET tube was advanced by 5cm and a repeat chest xray was obtained. The patient tolerated the procedure well without desaturation or hemodynamic compromise. Anesthesia: IV sedation Surgeon: Heaven Tee Was there an assistant program manager present: Yes Claim Attorney: Elijah Goyal Estimated blood loss (cc): 5 Specimen: none Pathology: none sent Condition: critical Disposition: ICU
[2017-11-12] MEDS ORDERED: Furosemide 40 MG/4 ML VIAL IVP ONE (15:56)
[2017-11-12] MEDS ORDERED: Lactulose Oral Soln 20 GM/30 ML UDC PO ONE (16:00)
[2017-11-12 16:56] LABS: VBG Ionized Calcium 1.09 mmol/L (1.15-1.35)
[2017-11-12] MEDS: Lacri-Lube 3.5 GM TUBE BOTH EYES SCH ×2 (16:56→20:54)
[2017-11-12 17:07] LABS: ABG Base Excess 10 mEq/L (-2 to 3); ABG HCO3 35 mEq/L (21-27); ABG Oxygen Saturation 97 % (95-98); ABG PCO2 46 mmHg (35-45); ABG PH 7.49 pH Units (7.32-7.45); ABG PO2 80 mmHg (85-104); ABG TCO2 36 mEq/L (20-26); Blood Gas Modality ASSIST CONTROL; Blood Gas Respiration Rate 16; Blood Gas VT 550 cc
[2017-11-12 17:28] LABS: Troponin I < 0.03 ng/mL (< 0.04)
[2017-11-12 17:40] LABS: Magnesium 2.6 mg/dL (1.6-2.6); Phosphorous 2.6 mg/dL (2.7-4.5)
[2017-11-12] MEDS: Potassium Chloride 40 MEQ/200 ML BAG IVPB PRN (18:26)
[2017-11-12] MEDS: Piperacillin/Tazobactam 3.375 GM in 0.9 % Sodium Chloride Mini Bag 100 ML IVPB SCH (18:26)
[2017-11-12] MEDS: Norepinephrine 4 MG in D5% in Water 250 ML IVC SCH (19:38)
[2017-11-12] MEDS: Chlorhexidine Rinse 15 ML MOUTHWASH MM SCH (20:54)
[2017-11-12] MEDS: Furosemide 40 MG/4 ML VIAL IVP SCH (20:54)
[2017-11-12] MEDS: Lactulose Oral Soln 20 GM/30 ML UDC PO SCH (20:54)
[2017-11-13] MEDS: Lacri-Lube 3.5 GM TUBE BOTH EYES SCH ×7 (00:31→23:40)
[2017-11-13] MEDS: Piperacillin/Tazobactam 3.375 GM in 0.9 % Sodium Chloride Mini Bag 100 ML IVPB SCH ×4 (00:31→23:39)
[2017-11-13 04:31] LABS: Eosinophils # 0.1 K/mcL (0.0-0.6); Eosinophils % 0.9 %; Hematocrit 42.6 % (37.5-50.1); Hemoglobin 13.3 g/dL (12.9-16.9); Immature Granulocytes % 0.5 % (0-4); Lymphocytes # 2.1 K/mcL (0.6-4.6); Lymphocytes % 19.5 %; Mean Corpuscular HGB Conc 31.2 g/dL (31.6-35.5); Mean Corpuscular Hemoglobin 25.7 pg (28.0-33.3); Mean Corpuscular Volume 82.2 fL (83.0-100.0); Mean Platelet Volume 12.3 fL (9.4-12.4); Monocytes # 1.2 K/mcL (0.0-1.3); Monocytes % 10.8 %; Neutrophils # 7.4 K/mcL (1.6-8.9); Platelet Count 108 K/mcL (140-400); Red Blood Count 5.18 M/mcL (4.19-5.50); Red Cell Distribution Width 18.6 % (11.5-14.5); Segmented Neutrophils % 68.3 %
[2017-11-13 04:31] LABS: VBG Ionized Calcium 1.07 mmol/L (1.15-1.35)
[2017-11-13 04:50] LABS: BUN/Creatinine Ratio 33 (6-26); Blood Urea Nitrogen 34 mg/dL (8-23); Calcium 8.8 mg/dL (8.6-10.3); Carbon Dioxide 38 mEq/L (23-29); Chloride 101 mEq/L (98-107); Glucose 114 mg/dL (70-105); Osmolality,Calculated 306 (280-300); Sodium 144 mEq/L (136-145); eGFR For African Americans > 60 (> 60); eGFR For Non-African Americans > 60 (> 60)
[2017-11-13 04:51] LABS: Magnesium 2.2 mg/dL (1.6-2.6); Phosphorous 1.9 mg/dL (2.7-4.5)
[2017-11-13 04:54] LABS: ABG Base Excess 12 mEq/L (-2 to 3); ABG HCO3 40 mEq/L (21-27); ABG Oxygen Saturation 98 % (95-98); ABG PCO2 62 mmHg (35-45); ABG PH 7.42 pH Units (7.32-7.45); ABG PO2 111 mmHg (85-104); ABG TCO2 42 mEq/L (20-26); Blood Gas Modality TC; Blood Gas Respiration Rate 12; Blood Gas VT 550 cc
[2017-11-13] MEDS: Potassium Chloride 40 MEQ/200 ML BAG IVPB PRN ×2 (05:06→17:38)
[2017-11-13] MEDS: Potassium Phosphate 44 MEQ in 0.9 % Sodium Chloride 250 ML IVPB PRN (05:40)
[2017-11-13] MEDS: Dexmedetomidine HCl 400 MCG/100 ML MLS IVC SCH ×5 (05:40→23:39)
[2017-11-13] MEDS: Chlorhexidine Rinse 15 ML MOUTHWASH MM SCH ×2 (08:29→20:38)
[2017-11-13] MEDS: Lactulose Oral Soln 20 GM/30 ML UDC PO SCH ×2 (08:30→20:38)
[2017-11-13] MEDS: Pantoprazole 40 MG VIAL IVP SCH (08:33)
[2017-11-13] MEDS: Furosemide 40 MG/4 ML VIAL IVP SCH ×2 (08:34→20:38)
[2017-11-13] MEDS: FentaNYL (PF) 1,000 MCG in 0.9 % Sodium Chloride 80 ML IVC SCH ×2 (08:34→21:02)
--- NOTE | 2017-11-13 08:51 | Pulmonology Consult Note ---
<Elijah Goyal - Last Filed: 11/13/17 14:12> Date of Encounter: 11/13/17 Time of Encounter: 08:50 Assessment and Plan (1) Acute on chronic respiratory failure with hypercapnia Current Visit: Yes Status: Acute Patient was [facility] to the [facility] on 11[facility]/2017 with her story failure. ABG at that time was 7.28/98/72. Patient started on BiPAP continue to have worsening her story status. [facility] ICU for further evaluation. ABG when patient arrived was 7.32/85/62. Patient was hypercapnic with respiratory acidosis. Patient was intubated and placed on the ventilator. Patient is very fluid overloaded most likely secondary to CHF. Patient was diuresis with Lasix Z continue to pitting edema. Patient is getting DuoNeb therapy as well as steroids for COPD Diamox given to help with patient's to help with patient's increase in bicarbonate (2) Encephalopathy Current Visit: Yes Status: Acute A she has been encephalopathic/delirious during his stay at the [facility]. He did have an elevated ammonia and receive lactulose at the [facility]. Repeat lactulose was given here in the ICU. We will repeat ammonia and continue to trend LFTs have been stable. This is very low likelihood of being liver cirrhosis is probably all secondary to patient's worsening CHF and COPD. Head CT was negative. Continue to monitor (3) Chronic a-fib Current Visit: No Status: Acute Patient has history of atrophic relation. Per [facility] records patient is on a apixaban and diltiazem (4) COPD (chronic obstructive pulmonary disease) Current Visit: Yes Status: Acute Patient does have history of COPD and may not be compliant with his at-home treatment. Patient was intubated for rest Tory support did receive DuoNeb therapy and steroids. Chest x-ray did not show any's kinds of pneumonia but did have pleural effusions most likely secondary to patient's CHF as well as COPD. Qualifiers: Qualified Code(s): J44.9 - Chronic obstructive pulmonary disease, unspecified (5) Schizophrenia Current Visit: No Status: Chronic Patient does have history of schizophrenia was treated with help her all during his stay at the [facility]. Continue to monitor mental status CT head was negative. Qualifiers: Schizophrenia type: unspecified Qualified Code(s): F20.9 - Schizophrenia, unspecified (6) CHF (congestive heart failure) Current Visit: No Status: Acute Patient does have history of CHF. We are giving him IV Lasix. Last echocardiogram was done in March which showed 65% ejection fraction with a dilated left atrium. Repeat echo today Continue Lasix treatment. Qualifiers: Qualified Code(s): I50.32 - Chronic diastolic (congestive) heart failure (7) DVT prophylaxis Current Visit: Yes Status: Acute Heparin subcutaneous twice a day History of Present Illness Consult date: 11/13/17 Requesting physician: David Skaggs Reason for consult: COPD, hypoxemia, pneumonia Chief complaint: Altered mental status and shortness of breath History of present illness: Mr. Sykes is a 60-year-old male with past history of COPD and CHF who is transferred from the [facility] for risk story failure. Patient was accepted into the ICU by the hospitalist. Patient was admitted on to the [facility] with COPD exacerbation and acute hyper cardiac respiratory failure. ABGs at that time her 7.28/98/72. Patient was encephalopathic at that time. There is also component of CHF with pitting edema and a BNP of almost 4000. Echo on February 07 showed an ejection fraction of 50-55%. Placed and was placed on BiPAP and was on it for proximally 4 days. They noted today patient was continuing to have very little improvement in his respiratory status did decline a became more encephalopathic. At that time decide to transfer here to the ICU for further evaluation and treatment. When patient was transported here the transfer team did not have a BiPAP machine that could change with rate so patient was nearly apneic when he came over here. Patient also only had 1 IV access of a 20-gauge in the right forearm. This had blown when patient arrives. Past Med Surg Social Fam HX - Past Medical History Medical history: aortic aneurysm, atrial fibrillation, COPD, hyperlipidemia, hypertension, other Additional medical history: tuberculosis, hepatitis C Psychiatric history: anxiety, bipolar, depression, PTSD, schizophrenia, other - Past Surgical History Surgical History: orthopedic, other Additional surgical history: Femur surgery - Social History Smoking Status: Current every day smoker Smokeless Tobacco Status: No Alcohol use: none Drug use: none - Family History Mother Living Status: Father Adopted: No Family Member Ethnicity: Non- Living Status: Hx Family Cardiac Disorders: No Hx Family Respiratory Disorders: No Hx Family Cancer: Yes Hx Family GI Disorders: No Hx Family Endocrine Disorder: No Medications and Allergies Acetaminophen [Tylenol] 975 mg PO BID PRN 11/12/17 [History] Acetaminophen [Tylenol] 975 mg PO HS 11/12/17 [History] Ammonium Lactate [Amlactin] 1 appl TP DAILY 11/12/17 [History] Apixaban [Eliquis] 5 mg PO BID 11/12/17 [History] Atorvastatin Calcium [Lipitor] 80 mg PO DAILY 11/12/17 [History] Budesonide/Formoterol 160/4.5 [Symbicort 160/4.5] 2 puff IH BIDR 11/12/17 [ History] Buprenorphine HCl [Subutex] 8 mg SL DAILY 11/12/17 [History] Chlorhexidine Rinse 15 ml MM BID 11/12/17 [History] Diltiazem HCl [Diltiazem 24Hr Cd] 240 mg PO DAILY 11/12/17 [History] Divalproex (24 HR) [Depakote ER (24 HR)] 1,500 mg PO DAILY 11/12/17 [History] Fluphenazine [Prolixin] 7.5 mg PO TID 11/12/17 [History] Ipratropium/Albuterol Neb [Duoneb] 3 ml IH Q4HR PRN 11/12/17 [History] Ipratropium/Albuterol Sulfate [Combivent Respimat Inhal [place]] 1 puff IH BID [History] Lactulose 30 gm PO TID 11/12/17 [History] Losartan [Cozaar] 25 mg PO DAILY 11/12/17 [History] Mag Hydrox/Al Hydrox/Simeth [Maalox] 15 ml PO Q6HR PRN 11/12/17 [History] Magnesium Citrate [Citroma] 296 ml PO DAILY PRN 11/12/17 [History] Magnesium Oxide [Magnesium] 400 mg PO DAILY 11/12/17 [History] Metoprolol [Lopressor] 75 mg PO BID 11/12/17 [History] Pantoprazole Sodium [Protonix] 20 mg PO BID 11/12/17 [History] Potassium Chloride [K-Tab ER] 20 meq PO DAILY 11/12/17 [History] Tamsulosin [Flomax] 0.4 mg PO HS 11/12/17 [History] Torsemide [Demadex] 40 mg PO DAILY 11/12/17 [History] hydrOXYzine HCl [Hydroxyzine HCl] 50 mg PO HS PRN 11/12/17 [History] 3 Allergy/AdvReac Type Severity Reaction Status Date / Time No Known Allergies Allergy Verified 03/25/17 23:59 ROS unobtainable: due to endotracheal tube, due to mental status All Systems: The remainder of the systems were reviewed and are negative Physical Examination Vital Signs: Vital Signs, Last 4 Hours Temp Pulse Resp BP Pulse Ox 11/13/17 08:43 99.0 F 11/13/17 07:41 14 122/87 99 11/13/17 06:00 92 12 118/83 99 11/13/17 05:24 12 115/80 99 11/13/17 05:01 99.5 F 11/13/17 05:00 86 12 118/79 99 General appearance: no acute distress, alert, other (Somnolence sedated on the ventilator) Eyes: nonicteric ENT: oropharynx moist Effort: normal Inspection: normal Auscultation: bilateral: rhonchi Cardiovascular: regular rate and rhythm Gastrointestinal: normoactive bowel sounds, soft, non-tender, non-distended Integumentary: normal Extremities: no cyanosis, no clubbing, edema (2+ pitting edema bilaterally), anasarca Musculoskeletal: no deformities, ROM normal non-focal exam, pupils equal and round, motor strength normal and symmetric Ventilator Settings Ventilator Settings: Ventilator Settings, Last 8 Hours Ventilator Tidal Volume 470 Setting Ventilator Tidal Volume 550 Setting Ventilator Tidal Volume 550 Setting Ventilator Tidal Volume 550 Setting Ventilator Tidal Volume 550 Setting Ventilator Tidal Volume 550 Setting Ventilator Tidal Volume 550 Setting Ventilator Tidal Volume 550 Setting Ventilator Tidal Volume 550 Setting Ventilator Tidal Volume 550 Setting Ventilator Tidal Volume 550 Setting Ventilator Respiratory Rate 14 Setting Ventilator Respiratory Rate 12 Setting Ventilator Respiratory Rate 12 Setting Ventilator Respiratory Rate 12 Setting Ventilator Respiratory Rate 12 Setting Ventilator Respiratory Rate 12 Setting Ventilator Respiratory Rate 12 Setting Ventilator Respiratory Rate 12 Setting Ventilator Respiratory Rate 12 Setting Ventilator Respiratory Rate 12 Setting Ventilator Respiratory Rate 12 Setting Actual Respiratory Rate 14 Actual Respiratory Rate 12 Actual Respiratory Rate 12 Actual Respiratory Rate 12 Actual Respiratory Rate 12 Actual Respiratory Rate 12 Actual Respiratory Rate 12 Actual Respiratory Rate 12 Actual Respiratory Rate 12 Actual Respiratory Rate 12 Positive End Expiratory 10 Pressure Positive End Expiratory 10 Pressure Positive End Expiratory 10 Pressure Positive End Expiratory 10 Pressure Positive End Expiratory 10 Pressure Positive End Expiratory 10 Pressure Positive End Expiratory 10 Pressure Positive End Expiratory 10 Pressure Positive End Expiratory 10 Pressure Positive End Expiratory 10 Pressure Positive End Expiratory 10 Pressure Peak Inspiratory Airway 23 Pressure Peak Inspiratory Airway 24 Pressure Peak Inspiratory Airway 24 Pressure Peak Inspiratory Airway 24 Pressure Peak Inspiratory Airway 24 Pressure Peak Inspiratory Airway 25 Pressure Peak Inspiratory Airway 25 Pressure Peak Inspiratory Airway 24 Pressure Peak Inspiratory Airway 24 Pressure Peak Inspiratory Airway 24 Pressure Results - Laboratory Findings CBC and BMP: 11/13/17 04:05 11/13/17 04:05 ABG ABG pH 7.42 pH Units (7.32-7.45) 11/13/17 04:50 ABG pCO2 62 mmHg (35-45) H 11/13/17 04:50 ABG pO2 111 mmHg (85-104) H 11/13/17 04:50 ABG O2 Saturation 98 % (95-98) 11/13/17 04:50 PT/INR, D-dimer PT 15.1 Seconds (9.4-12.1) H 11/12/17 15:00 Abnormal lab findings: Abnormal lab results MCV 82.2 fL (83.0-100.0) L 11/13/17 04:05 MCH 25.7 pg (28.0-33.3) L 11/13/17 04:05 MCHC 31.2 g/dL (31.6-35.5) L 11/13/17 04:05 RDW 18.6 % (11.5-14.5) H 11/13/17 04:05 Plt Count 108 K/mcL (140-400) L 11/13/17 04:05 Nucleated RBCs/100 WBC 0.3 /100 WBC (0) H 11/12/17 15:00 PT 15.1 Seconds (9.4-12.1) H 11/12/17 15:00 ABG pCO2 62 mmHg (35-45) H 11/13/17 04:50 ABG pO2 111 mmHg (85-104) H 11/13/17 04:50 ABG HCO3 40 mEq/L (21-27) H 11/13/17 04:50 ABG Total CO2 42 mEq/L (20-26) H 11/13/17 04:50 ABG Base Excess 12 mEq/L (-2 to 3) H 11/13/17 04:50 Potassium 3.0 mEq/L (3.5-5.1) L 11/13/17 04:05 Carbon Dioxide 38 mEq/L (23-29) H 11/13/17 04:05 BUN 34 mg/dL (8-23) H 11/13/17 04:05 BUN/Creatinine Ratio 33 (6-26) H 11/13/17 04:05 Glucose 114 mg/dL (70-105) H 11/13/17 04:05 POC Glucose 129 mg/dL (70-99) H 11/13/17 00:12 Calculated Osmolality 306 (280-300) H 11/13/17 04:05 Venous Ioniz Calcium 1.07 mmol/L (1.15-1.35) L 11/13/17 04:29 Phosphorus 1.9 mg/dL (2.7-4.5) L 11/13/17 04:05 Ammonia 64 mcmol/L (16-53) H 11/12/17 15:00 B-Natriuretic Peptide 265 pg/mL (Less than 100) H 11/12/17 15:55 Albumin 3.2 g/dL (3.5-5.7) L 11/12/17 15:00 Globulin 3.6 g/dL (2.4-3.5) H 11/12/17 15:00 Albumin/Globulin Ratio 0.9 (1.1-2.2) L 11/12/17 15:00 Urine Protein 30 mg/dL (Neg-Trace) H 11/12/17 14:59 Urine Microscopic WBC 3-5 per hpf (0-3) H 11/12/17 14:59 Ur Squamous Epith Cells Many per lpf (None-Few) H 11/12/17 14:59 - Microbiology Findings Microbiology Findings: Microbiology, Last 48 Hours 11/12/17 16:00 Sputum Culture - Preliminary Sputum 11/12/17 16:11 Blood Culture - Preliminary Peripheral Venipuncture Culture is incubating and being continuously monitored for growth. Final report to follow. - Diagnostic Findings Chest x-ray: report reviewed, image reviewed CT scan - chest: report reviewed, image reviewed - Clinical Findings Intake & Output: Intake & Output 11/12/17 11/13/17 11/13/17 23:59 07:59 15:59 Intake Total 1110 / 1110 410 / 410 Output Total 1999 250 / 250 Balance -890 / -890 -1590 / -1590 -250 / -250 Weight 120 kg Consult Discharge Plan - Plan Referrals: [facility]Primary Care Provider[facility] - <Daphne Arcos - Last Filed: 11/13/17 19:38> Date of Encounter: 11/13/17 All Systems: The remainder of the systems were reviewed and are negative Physical Examination Vital Signs: Vital Signs, Last 4 Hours Temp Pulse Resp BP Pulse Ox 11/13/17 19:26 16 104/70 98 11/13/17 18:00 128 16 85/68 74 11/13/17 17:10 17 102/74 96 11/13/17 17:00 129 16 106/69 97 11/13/17 16:28 101.5 F H 11/13/17 16:00 134 16 115/77 96 11/13/17 15:46 16 102/74 97 Ventilator Settings Ventilator Settings: Ventilator Settings, Last 8 Hours Ventilator Tidal Volume 470 Setting Ventilator Tidal Volume 470 Setting Ventilator Tidal Volume 470 Setting Ventilator Tidal Volume 470 Setting Ventilator Tidal Volume 470 Setting Ventilator Tidal Volume 470 Setting Ventilator Tidal Volume 470 Setting Ventilator Tidal Volume 470 Setting Ventilator Tidal Volume 470 Setting Ventilator Tidal Volume 470 Setting Ventilator Respiratory Rate 16 Setting Ventilator Respiratory Rate 16 Setting Ventilator Respiratory Rate 16 Setting Ventilator Respiratory Rate 16 Setting Ventilator Respiratory Rate 16 Setting Ventilator Respiratory Rate 16 Setting Ventilator Respiratory Rate 16 Setting Ventilator Respiratory Rate 16 Setting Ventilator Respiratory Rate 16 Setting Ventilator Respiratory Rate 16 Setting Actual Respiratory Rate 17 Actual Respiratory Rate 16 Actual Respiratory Rate 16 Actual Respiratory Rate 16 Actual Respiratory Rate 16 Actual Respiratory Rate 16 Actual Respiratory Rate 16 Actual Respiratory Rate 16 Actual Respiratory Rate 16 Actual Respiratory Rate 16 Positive End Expiratory 10 Pressure Positive End Expiratory 10 Pressure Positive End Expiratory 10 Pressure Positive End Expiratory 10 Pressure Positive End Expiratory 10 Pressure Positive End Expiratory 10 Pressure Positive End Expiratory 10 Pressure Positive End Expiratory 10 Pressure Positive End Expiratory 10 Pressure Positive End Expiratory 10 Pressure Peak Inspiratory Airway 33 Pressure Peak Inspiratory Airway 23 Pressure Peak Inspiratory Airway 22 Pressure Peak Inspiratory Airway 21 Pressure Peak Inspiratory Airway 21 Pressure Peak Inspiratory Airway 23 Pressure Peak Inspiratory Airway 24 Pressure Peak Inspiratory Airway 24 Pressure Peak Inspiratory Airway 24 Pressure Peak Inspiratory Airway 24 Pressure Results - Laboratory Findings CBC and BMP: 11/13/17 04:05 11/13/17 16:00 ABG ABG pH 7.42 pH Units (7.32-7.45) 11/13/17 04:50 ABG pCO2 62 mmHg (35-45) H 11/13/17 04:50 ABG pO2 111 mmHg (85-104) H 11/13/17 04:50 ABG O2 Saturation 98 % (95-98) 11/13/17 04:50 PT/INR, D-dimer PT 15.1 Seconds (9.4-12.1) H 11/12/17 15:00 Abnormal lab findings: Abnormal lab results MCV 82.2 fL (83.0-100.0) L 11/13/17 04:05 MCH 25.7 pg (28.0-33.3) L 11/13/17 04:05 MCHC 31.2 g/dL (31.6-35.5) L 11/13/17 04:05 RDW 18.6 % (11.5-14.5) H 11/13/17 04:05 Plt Count 108 K/mcL (140-400) L 11/13/17 04:05 Nucleated RBCs/100 WBC 0.3 /100 WBC (0) H 11/12/17 15:00 PT 15.1 Seconds (9.4-12.1) H 11/12/17 15:00 ABG pCO2 62 mmHg (35-45) H 11/13/17 04:50 ABG pO2 111 mmHg (85-104) H 11/13/17 04:50 ABG HCO3 40 mEq/L (21-27) H 11/13/17 04:50 ABG Total CO2 42 mEq/L (20-26) H 11/13/17 04:50 ABG Base Excess 12 mEq/L (-2 to 3) H 11/13/17 04:50 Potassium 3.2 mEq/L (3.5-5.1) L 11/13/17 16:00 Carbon Dioxide 38 mEq/L (23-29) H 11/13/17 04:05 BUN 34 mg/dL (8-23) H 11/13/17 04:05 BUN/Creatinine Ratio 33 (6-26) H 11/13/17 04:05 Glucose 114 mg/dL (70-105) H 11/13/17 04:05 POC Glucose 129 mg/dL (70-99) H 11/13/17 00:12 Calculated Osmolality 306 (280-300) H 11/13/17 04:05 Venous Ioniz Calcium 1.10 mmol/L (1.15-1.35) L 11/13/17 16:22 Ammonia 64 mcmol/L (16-53) H 11/12/17 15:00 B-Natriuretic Peptide 265 pg/mL (Less than 100) H 11/12/17 15:55 Albumin 3.2 g/dL (3.5-5.7) L 11/12/17 15:00 Globulin 3.6 g/dL (2.4-3.5) H 11/12/17 15:00 Albumin/Globulin Ratio 0.9 (1.1-2.2) L 11/12/17 15:00 Urine Protein 30 mg/dL (Neg-Trace) H 11/12/17 14:59 Urine Microscopic WBC 3-5 per hpf (0-3) H 11/12/17 14:59 Ur Squamous Epith Cells Many per lpf (None-Few) H 11/12/17 14:59 Nasal Screen MRSA (PCR) Positive (Negative) A 11/13/17 11:05 - Microbiology Findings Microbiology Findings: Microbiology, Last 48 Hours 11/12/17 16:00 Sputum Culture - Preliminary Sputum 11/12/17 16:11 Blood Culture - Preliminary Peripheral Venipuncture Culture is incubating and being continuously monitored for growth. Final report to follow. - Clinical Findings Intake & Output: Intake & Output 11/13/17 11/13/17 11/13/17 07:59 15:59 23:59 Intake Total 610 / 610 300 / 300 200 / 200 Output Total 2000 / 1999 1600 / 1600 700 / 700 Balance -1390 / -1390 -1300 / -1300 -500 / -500 Weight 120 kg - Attending Attestation I saw and evaluated this patient and my medical decision-making was reviewed with the Resident Physician. I agree with the documented findings, disposition and treatment plan as described except to the extent set forth below. We independently had [id number] contact with the patient I spent 35 minutes of Critical Care time with this patient. It involved decision making of high complexity to assess, manipulate, and support vital organ system failure and/or to prevent further life threatening deterioration of the patient's condition. The time involved in the performance of separately reportable procedures was not counted toward critical care time. Patient seen and examined at bedside Labs, radiology, chart personally reviewed. Management was reviewed during multidisciplinary critical care rounds. 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 Low- tidal volume strategy . (FiO2 as possible to keep SPO2 around 90-92% liberate PEEP after FiO2 has come down Cards: And hemodynamically stable echo showed EF of 55% acute on chronic diastolic heart failure. Diuresing as tolerated. FEN-GI: As per dietary recommendations.will evaluate for any underlying liver disease Renal: Absent output were reviewed ID: Patient is more a fluid overload , will empirically cover for pneumonia will soon descalate antibiotics . Heme/Onc:To continue DVT prophylaxis Endo: Glucose Monitored Integ/MSK: Skin Care per routine ICU Nursing Protocol to prevent ulcers. Lines: All lines examined without evidence of infection : Dispo: Critically ill CODE: Full Code
[2017-11-13] MEDS: Ipratropium/Albuterol Neb 3 ML IH SCH ×4 (11:10→23:00)
[2017-11-13] MEDS: Norepinephrine 4 MG in D5% in Water 250 ML IVC SCH (15:26)
[2017-11-13] MEDS ORDERED: Acetaminophen IV 1,000 MG/100 ML INFUS..BTL IVPB ONE (15:46)
[2017-11-13 16:37] LABS: Phosphorous 3.1 mg/dL (2.7-4.5); Potassium 3.2 mEq/L (3.5-5.1)
[2017-11-13] MEDS ORDERED: *HR* Metoprolol 5 MG/5 ML VIAL IVP ONE (16:46)
[2017-11-13] MEDS ORDERED: Vancomycin 1,750 MG in 0.9 % Sodium Chloride 250 ML IVPB SCH (17:00)
[2017-11-13] MEDS: *HR* Heparin 5,000 UNIT/ML VIAL SQ SCH (17:12)
--- NOTE | 2017-11-13 18:44 | Electrocardiograph Report ---
[address] [address] Test Date: 2017-11-12 Pat Name: Yonathan Sykes Department: 109 Room: [facility] Gender: M Mate Fourth: JESSICA : 1955 Requested By: Elijah Goyal Order Number: [id number] Reading MD: James Silva Measurements Intervals [place] Rate: 121 P: [place]: 0 QRS: 60 QRSD: 92 T: 0 QT: 277 QTc: 349 Interpretive Statements ATRIAL FIBRILLATION WITH RAPID VENTRICULAR RESPONSE NONSPECIFIC T-WAVE ABNORMALITY Electronically Signed On 11-13-2017 18:43:16 EDT by James Silva
[2017-11-13] MEDS ORDERED: Perflutren Lipid Microsphere 1.3 ML in 0.9 % Sodium Chloride 8.7 ML IVP ONE (20:40)
[2017-11-14] MEDS: Ipratropium/Albuterol Neb 3 ML IH SCH ×6 (03:42→23:02)
[2017-11-14 04:31] LABS: Eosinophils # 0.1 K/mcL (0.0-0.6); Eosinophils % 0.7 %; Hematocrit 41.6 % (37.5-50.1); Hemoglobin 13.1 g/dL (12.9-16.9); Immature Granulocytes % 0.6 % (0-4); Immature Platelets 8.1 % (1.1-6.1); Lymphocytes # 2.1 K/mcL (0.6-4.6); Lymphocytes % 16.6 %; Mean Corpuscular HGB Conc 31.5 g/dL (31.6-35.5); Mean Corpuscular Hemoglobin 25.8 pg (28.0-33.3); Mean Corpuscular Volume 82.1 fL (83.0-100.0); Monocytes # 1.6 K/mcL (0.0-1.3); Monocytes % 12.6 %; Red Blood Count 5.07 M/mcL (4.19-5.50); Red Cell Distribution Width 19.1 % (11.5-14.5); Segmented Neutrophils % 69.5 %
[2017-11-14 04:32] LABS: Platelet Count 54 K/mcL (140-400)
[2017-11-14 04:32] LABS: VBG Ionized Calcium 1.11 mmol/L (1.15-1.35)
[2017-11-14 04:47] LABS: Magnesium 1.8 mg/dL (1.6-2.6); Phosphorous 2.4 mg/dL (2.7-4.5)
[2017-11-14] MEDS ORDERED: Acetaminophen IV 1,000 MG/100 ML INFUS..BTL IVPB ONE (05:15)
[2017-11-14] MEDS: Lacri-Lube 3.5 GM TUBE BOTH EYES SCH ×6 (05:19→23:37)
[2017-11-14] MEDS: *HR* Heparin 5,000 UNIT/ML VIAL SQ SCH ×2 (05:20→17:04)
[2017-11-14] MEDS: Dexmedetomidine HCl 400 MCG/100 ML MLS IVC SCH ×4 (05:21→16:35)
[2017-11-14 06:46] LABS: BUN/Creatinine Ratio 27 (6-26); Blood Urea Nitrogen 26 mg/dL (8-23); Calcium 8.5 mg/dL (8.6-10.3); Carbon Dioxide 36 mEq/L (23-29); Chloride 104 mEq/L (98-107); Glucose 164 mg/dL (70-105); Osmolality,Calculated 308 (280-300); Potassium 3.1 mEq/L (3.5-5.1); Sodium 145 mEq/L (136-145); eGFR For African Americans > 60 (> 60); eGFR For Non-African Americans > 60 (> 60)
[2017-11-14] MEDS: Potassium Chloride 40 MEQ/200 ML BAG IVPB PRN ×2 (06:55→13:58)
[2017-11-14] MEDS: Piperacillin/Tazobactam 3.375 GM in 0.9 % Sodium Chloride Mini Bag 100 ML IVPB SCH ×3 (07:46→23:37)
[2017-11-14] MEDS: Chlorhexidine Rinse 15 ML MOUTHWASH MM SCH ×2 (07:48→20:46)
[2017-11-14] MEDS: Furosemide 40 MG/4 ML VIAL IVP SCH ×2 (07:48→20:46)
[2017-11-14] MEDS: Pantoprazole 40 MG VIAL IVP SCH (07:48)
[2017-11-14] MEDS: Lactulose Oral Soln 20 GM/30 ML UDC PO SCH ×2 (07:48→20:46)
[2017-11-14] MEDS ORDERED: *HR* Metoprolol 5 MG/5 ML VIAL IVP ONE ×4 (08:09→23:56)
[2017-11-14] MEDS: FentaNYL (PF) 1,000 MCG in 0.9 % Sodium Chloride 80 ML IVC SCH ×4 (08:26→21:33)
--- NOTE | 2017-11-14 09:13 | Pulmonology Progress Note ---
<Daphne Arcos S - Last Filed: 11/14/17 16:41> Date of Encounter: 11/14/17 Objective PUL Vital signs: Last Vital Signs Temp 102.5 F H 11/14/17 15:00 Pulse 129 11/14/17 16:00 Resp 23 11/14/17 16:00 BP 100/63 11/14/17 16:00 Pulse Ox 90 11/14/17 16:00 Ventilator Settings Ventilator Settings: Ventilator Settings, Last 8 Hours Ventilator Tidal Volume 470 Setting Ventilator Tidal Volume 470 Setting Ventilator Tidal Volume 470 Setting Ventilator Tidal Volume 470 Setting Ventilator Tidal Volume 470 Setting Ventilator Tidal Volume 470 Setting Ventilator Tidal Volume 470 Setting Ventilator Tidal Volume 470 Setting Ventilator Tidal Volume 470 Setting Ventilator Tidal Volume 470 Setting Ventilator Tidal Volume 470 Setting Ventilator Tidal Volume 470 Setting Ventilator Respiratory Rate 16 Setting Ventilator Respiratory Rate 16 Setting Ventilator Respiratory Rate 16 Setting Ventilator Respiratory Rate 16 Setting Ventilator Respiratory Rate 16 Setting Ventilator Respiratory Rate 16 Setting Ventilator Respiratory Rate 16 Setting Ventilator Respiratory Rate 16 Setting Ventilator Respiratory Rate 16 Setting Ventilator Respiratory Rate 16 Setting Ventilator Respiratory Rate 16 Setting Ventilator Respiratory Rate 16 Setting Actual Respiratory Rate 23 Actual Respiratory Rate 23 Actual Respiratory Rate 23 Actual Respiratory Rate 19 Actual Respiratory Rate 19 Actual Respiratory Rate 20 Actual Respiratory Rate 22 Actual Respiratory Rate 19 Actual Respiratory Rate 19 Actual Respiratory Rate 19 Actual Respiratory Rate 19 Actual Respiratory Rate 20 Positive End Expiratory 8 Pressure Positive End Expiratory 8 Pressure Positive End Expiratory 8 Pressure Positive End Expiratory 8 Pressure Positive End Expiratory 8 Pressure Positive End Expiratory 8 Pressure Positive End Expiratory 8 Pressure Positive End Expiratory 8 Pressure Positive End Expiratory 8 Pressure Positive End Expiratory 8 Pressure Positive End Expiratory 8 Pressure Positive End Expiratory 8 Pressure Peak Inspiratory Airway 21 Pressure Peak Inspiratory Airway 22 Pressure Peak Inspiratory Airway 24 Pressure Peak Inspiratory Airway 23 Pressure Peak Inspiratory Airway 24 Pressure Peak Inspiratory Airway 23 Pressure Peak Inspiratory Airway 23 Pressure Peak Inspiratory Airway 24 Pressure Peak Inspiratory Airway 24 Pressure Peak Inspiratory Airway 24 Pressure Peak Inspiratory Airway 23 Pressure Peak Inspiratory Airway 23 Pressure Results - Laboratory Findings CBC and BMP: 11/14/17 04:15 11/14/17 13:22 ABG ABG pH 7.42 pH Units (7.32-7.45) 11/13/17 04:50 ABG pCO2 62 mmHg (35-45) H 11/13/17 04:50 ABG pO2 111 mmHg (85-104) H 11/13/17 04:50 ABG O2 Saturation 98 % (95-98) 11/13/17 04:50 PT/INR, D-dimer PT 15.1 Seconds (9.4-12.1) H 11/12/17 15:00 Abnormal lab findings: Abnormal lab results WBC 12.9 K/mcL (4.3-11.1) H 11/14/17 04:15 MCV 82.1 fL (83.0-100.0) L 11/14/17 04:15 MCH 25.8 pg (28.0-33.3) L 11/14/17 04:15 MCHC 31.5 g/dL (31.6-35.5) L 11/14/17 04:15 RDW 19.1 % (11.5-14.5) H 11/14/17 04:15 Plt Count 54 K/mcL (140-400) L 11/14/17 04:15 Neutrophils # 9.0 K/mcL (1.6-8.9) H 11/14/17 04:15 Monocytes # 1.6 K/mcL (0.0-1.3) H 11/14/17 04:15 Nucleated RBCs/100 WBC 0.3 /100 WBC (0) H 11/12/17 15:00 Immature Plt Fraction 8.1 % (1.1-6.1) H 11/14/17 04:15 PT 15.1 Seconds (9.4-12.1) H 11/12/17 15:00 ABG pCO2 62 mmHg (35-45) H 11/13/17 04:50 ABG pO2 111 mmHg (85-104) H 11/13/17 04:50 ABG HCO3 40 mEq/L (21-27) H 11/13/17 04:50 ABG Total CO2 42 mEq/L (20-26) H 11/13/17 04:50 ABG Base Excess 12 mEq/L (-2 to 3) H 11/13/17 04:50 Potassium 3.3 mEq/L (3.5-5.1) L 11/14/17 13:22 Carbon Dioxide 37 mEq/L (23-29) H 11/14/17 13:22 Glucose 178 mg/dL (70-105) H 11/14/17 13:22 POC Glucose 157 mg/dL (70-99) H 11/13/17 23:35 Calculated Osmolality 306 (280-300) H 11/14/17 13:22 Calcium 8.3 mg/dL (8.6-10.3) L 11/14/17 13:22 Venous Ioniz Calcium 1.11 mmol/L (1.15-1.35) L 11/14/17 04:30 Phosphorus 2.2 mg/dL (2.7-4.5) L 11/14/17 13:22 B-Natriuretic Peptide 265 pg/mL (Less than 100) H 11/12/17 15:55 Serum Total Protein 6.0 g/dL (6.4-8.9) L 11/14/17 13:22 Albumin 2.7 g/dL (3.5-5.7) L 11/14/17 13:22 Albumin/Globulin Ratio 0.8 (1.1-2.2) L 11/14/17 13:22 Urine Protein 30 mg/dL (Neg-Trace) H 11/12/17 14:59 Urine Microscopic WBC 3-5 per hpf (0-3) H 11/12/17 14:59 Ur Squamous Epith Cells Many per lpf (None-Few) H 11/12/17 14:59 Nasal Screen MRSA (PCR) Positive (Negative) A 11/13/17 11:05 - Microbiology Findings Microbiology Findings: Microbiology, Last 48 Hours 11/12/17 16:00 Sputum Culture - Preliminary Sputum 11/12/17 16:11 Blood Culture - Preliminary Peripheral Venipuncture Culture is incubating and being continuously monitored for growth. Final report to follow. - Clinical Findings Intake & Output: Intake & Output 11/14/17 11/14/17 11/14/17 07:59 15:59 23:59 Intake Total 600 / 600 4 / 2054 Output Total 400 / 400 1200 / 1200 Balance 200 / 200 854 / 854 Consult Discharge Plan - Plan [facility]: [facility] Provider[facility] - - Attending Attestation saw and evaluated this patient and my medical decision-making was reviewed with the Resident Physician. I agree with the documented findings, disposition and treatment plan as described except to the extent set forth below. We independently had [id number] contact with the patient I spent 35 minutes of Critical Care time with this patient. It involved decision making of high complexity to assess, manipulate, and support vital organ system failure and/or to prevent further life threatening deterioration of the patient's condition. The time involved in the performance of separately reportable procedures was not counted toward critical care time. Patient seen and examined at bedside Labs, radiology, chart personally reviewed. Management was reviewed during multidisciplinary critical care rounds. 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 Low- tidal volume strategy . (FiO2 as possible to keep SPO2 around 90-92% liberate PEEP after FiO2 has come down Cards: And hemodynamically stable echo showed EF of 55% acute on chronic diastolic heart failure. Diuresing as tolerated. FEN-GI: As per dietary recommendations.will evaluate for any underlying liver disease Renal: Labs and output reviewed ID: Patient is more afluid overload , will empirically cover for pneumonia will soon descalate antibiotics .Patient is spiking fever if this continue will hussein scan him . Will continue the current broad spectrum antibiotics Heme/Onc:To continue DVT prophylaxis Endo: Glucose Monitored Integ/MSK: Skin Care per routine ICU Nursing Protocol to prevent ulcers. Lines: All lines examined without evidence of infection : Dispo: Critically ill CODE: Full Code <Heaven Tee N - Last Filed: 11/14/17 17:42> Date of Encounter: 11/14/17 Time of Encounter: 09:13 Assessment and Plan (1) Acute on chronic respiratory failure with hypercapnia Current Visit: Yes Status: Acute Patient was admitted to the [facility] on 11/06[facility]2017 with respiratory failure. ABGs at that time were 7.28/98/72 Patient was started on BiPAP therapy, patient's respiratory status did not improve and he was transferred to [facility] ICU patient was intubated for respiratory support, ABGs collected at this time were 7.32/85/62 Patient currently still on ventilator, spontaneous breathing trial was performed. Patient tolerated for approximately 2 hours before being placed back on ventilator. Patient has a history of COPD and CHF. Current status is likely secondary to both comorbidities. Patient diuresed well on Lasix yesterday, he will receive 40 mg today Continue DuoNeb's There is a questionable pneumonia component to the patient's current respiratory status. Patient has been spiking fever since yesterday with a fever 103 today. Patient has Tylenol on board as well as antibiotics. Central line is in place if patient goes into septic shock. (2) COPD (chronic obstructive pulmonary disease) Current Visit: Yes Status: Acute Per [place] records patient has a history of COPD, and may not be compliant with his at-home treatment Patient has been intubated for respiratory support, he will receive DuoNeb therapy and steroids Nasal MRSA PCR was positive, patient is on appropriate antibiotics Qualifiers: Qualified Code(s): J44.9 - Chronic obstructive pulmonary disease, unspecified (3) Encephalopathy Current Visit: Yes Status: [facility] patient has been encephalopathic/delirious during his stay Currently he is alert however he is not oriented to his surroundings or himself. Given lactulose, repeat ammonia today Restarting psych meds (4) Chronic a-fib Current Visit: No Status: Acute Patient has a history of A. fib [facility] the [facility] patient is on apixaban and diltiazem. He has remained tachycardic with heart rate in the 130s He received Lopressor and Cardizem with little improvement in heart rate We will continue home meds and adjust as necessary (5) Schizophrenia Current Visit: No Status: Chronic [facility] the [facility] patient was treated with haloperidol during his stay at the [place] Continue to monitor mental status, obtaining CT head. It is less likely the patient's acute change in mental status is secondary to his psychiatric history. Restarted psych meds Qualifiers: Schizophrenia type: unspecified Qualified Code(s): F20.9 - Schizophrenia, unspecified Subjective Principal diagnosis: COPD, respiratory failure, hypoxia, pneumonia Interval history: Patient was seen and examined this morning with the attending present at bedside. Patient is awake and follows basic commands, such as squeezing fingers. A trial of spontaneous breathing was performed by respiratory and reportedly he tolerated it for approximately 2 hours before having to be placed back on ventilator support. He received IV Lasix yesterday and responded well with good urine output. Patient has remained tachycardic with an irregular rhythm on monitor, patient has been getting Cardizem and Lopressor. He has been off his vasopressor, blood pressure is within range. Patient has been spiking fevers since yesterday, highest was today at 103 per nursing. Patient' s psychiatric medications were stopped in case they were contributing to the high fevers. New blood cultures were collected and sent. Objective PUL Vital signs: Last Vital Signs Temp 101.4 F H 07/17/18 08:06 Pulse 122 11/14/17 09:00 Resp 20 11/14/17 09:00 BP 104/71 11/14/17 09:00 Pulse Ox 91 11/14/17 09:00 General appearance: no acute distress Eyes: nonicteric Neck: supple Auscultation: bilateral: rhonchi Cardiovascular: irregular rhythm, other (Tachycardia) Gastrointestinal: other (Abdomen is distended, liver palpable) Integumentary: normal Extremities: no cyanosis, edema, other (2+ pitting edema in all 4 extremities) Ventilator Settings Ventilator Settings: Ventilator Settings, Last 8 Hours Ventilator Tidal Volume 470 Setting Ventilator Tidal Volume 470 Setting Ventilator Tidal Volume 470 Setting Ventilator Tidal Volume 470 Setting Ventilator Tidal Volume 470 Setting Ventilator Tidal Volume 470 Setting Ventilator Tidal Volume 470 Setting Ventilator Respiratory Rate 16 Setting Ventilator Respiratory Rate 16 Setting Ventilator Respiratory Rate 16 Setting Ventilator Respiratory Rate 16 Setting Ventilator Respiratory Rate 16 Setting Ventilator Respiratory Rate 16 Setting Ventilator Respiratory Rate 16 Setting Actual Respiratory Rate 20 Actual Respiratory Rate 22 Actual Respiratory Rate 19 Actual Respiratory Rate 20 Actual Respiratory Rate 20 Actual Respiratory Rate 18 Actual Respiratory Rate 19 Actual Respiratory Rate 19 Actual Respiratory Rate 19 Actual Respiratory Rate 17 Positive End Expiratory 8 Pressure Positive End Expiratory 8 Pressure Positive End Expiratory 8 Pressure Positive End Expiratory 8 Pressure Positive End Expiratory 8 Pressure Positive End Expiratory 8 Pressure Positive End Expiratory 8 Pressure Positive End Expiratory 8 Pressure Positive End Expiratory 8 Pressure Positive End Expiratory 8 Pressure Peak Inspiratory Airway 23 Pressure Peak Inspiratory Airway 18 Pressure Peak Inspiratory Airway 18 Pressure Peak Inspiratory Airway 23 Pressure Peak Inspiratory Airway 23 Pressure Results - Laboratory Findings CBC and BMP: 11/14/17 04:15 11/14/17 13:22 ABG ABG pH 7.42 pH Units (7.32-7.45) 11/13/17 04:50 ABG pCO2 62 mmHg (35-45) H 11/13/17 04:50 ABG pO2 111 mmHg (85-104) H 11/13/17 04:50 ABG O2 Saturation 98 % (95-98) 11/13/17 04:50 PT/INR, D-dimer PT 15.1 Seconds (9.4-12.1) H 11/12/17 15:00 Abnormal lab findings: Abnormal lab results WBC 12.9 K/mcL (4.3-11.1) H 11/14/17 04:15 MCV 82.1 fL (83.0-100.0) L 11/14/17 04:15 MCH 25.8 pg (28.0-33.3) L 11/14/17 04:15 MCHC 31.5 g/dL (31.6-35.5) L 11/14/17 04:15 RDW 19.1 % (11.5-14.5) H 11/14/17 04:15 Plt Count 54 K/mcL (140-400) L 11/14/17 04:15 Neutrophils # 9.0 K/mcL (1.6-8.9) H 11/14/17 04:15 Monocytes # 1.6 K/mcL (0.0-1.3) H 11/14/17 04:15 Nucleated RBCs/100 WBC 0.3 /100 WBC (0) H 11/12/17 15:00 Immature Plt Fraction 8.1 % (1.1-6.1) H 11/14/17 04:15 PT 15.1 Seconds (9.4-12.1) H 11/12/17 15:00 ABG pCO2 62 mmHg (35-45) H 11/13/17 04:50 ABG pO2 111 mmHg (85-104) H 11/13/17 04:50 ABG HCO3 40 mEq/L (21-27) H 11/13/17 04:50 ABG Total CO2 42 mEq/L (20-26) H 11/13/17 04:50 ABG Base Excess 12 mEq/L (-2 to 3) H 11/13/17 04:50 Potassium 3.1 mEq/L (3.5-5.1) L 11/14/17 04:13 Carbon Dioxide 36 mEq/L (23-29) H 11/14/17 04:13 BUN 26 mg/dL (8-23) H 11/14/17 04:13 BUN/Creatinine Ratio 27 (6-26) H 11/14/17 04:13 Glucose 164 mg/dL (70-105) H 11/14/17 04:13 POC Glucose 157 mg/dL (70-99) H 11/13/17 23:35 Calculated Osmolality 308 (280-300) H 11/14/17 04:13 Calcium 8.5 mg/dL (8.6-10.3) L 11/14/17 04:13 Venous Ioniz Calcium 1.11 mmol/L (1.15-1.35) L 11/14/17 04:30 Phosphorus 2.4 mg/dL (2.7-4.5) L 11/14/17 04:13 Ammonia 64 mcmol/L (16-53) H 11/12/17 15:00 B-Natriuretic Peptide 265 pg/mL (Less than 100) H 11/12/17 15:55 Albumin 3.2 g/dL (3.5-5.7) L 11/12/17 15:00 Globulin 3.6 g/dL (2.4-3.5) H 11/12/17 15:00 Albumin/Globulin Ratio 0.9 (1.1-2.2) L 11/12/17 15:00 Urine Protein 30 mg/dL (Neg-Trace) H 11/12/17 14:59 Urine Microscopic WBC 3-5 per hpf (0-3) H 11/12/17 14:59 Ur Squamous Epith Cells Many per lpf (None-Few) H 11/12/17 14:59 Nasal Screen MRSA (PCR) Positive (Negative) A 11/13/17 11:05 - Microbiology Findings Microbiology Findings: Microbiology, Last 48 Hours 11/12/17 16:00 Sputum Culture - Preliminary Sputum 11/12/17 16:11 Blood Culture - Preliminary Peripheral Venipuncture Culture is incubating and being continuously monitored for growth. Final report to follow. - Clinical Findings Intake & Output: Intake & Output 11/13/17 11/14/17 11/14/17 23:59 07:59 15:59 Intake Total 1770 / 1770 600 / 600 445 / 445 Output Total 2225 / 2225 400 / 400 250 / 250 Balance -455 / -455 200 / 200 195 / 195 Weight 120.3 kg - VTE Documentation of Mechanical Device: Intermittent pneumatic compression device
[2017-11-14] MEDS: Valproic Acid Oral Soln 250 MG/5 ML UDC PO SCH ×2 (11:32→17:03)
[2017-11-14] MEDS: Norepinephrine 4 MG in D5% in Water 250 ML IVC SCH (13:26)
[2017-11-14 13:48] LABS: Alanine Aminotransferase 12 Units/L (7-52); Albumin 2.7 g/dL (3.5-5.7); Albumin/Globulin Ratio 0.8 (1.1-2.2); Alkaline Phosphatase 71 Units/L (34-104); Aspartate Amino Transferase 24 Units/L (13-39); BUN/Creatinine Ratio 23 (6-26); Bilirubin,Total 0.7 mg/dL (0.3-1.0); Blood Urea Nitrogen 22 mg/dL (8-23); Calcium 8.3 mg/dL (8.6-10.3); Carbon Dioxide 37 mEq/L (23-29); Chloride 104 mEq/L (98-107); Globulin 3.3 g/dL (2.4-3.5); Glucose 178 mg/dL (70-105); Magnesium 1.9 mg/dL (1.6-2.6); Osmolality,Calculated 306 (280-300); Phosphorous 2.2 mg/dL (2.7-4.5); Potassium 3.3 mEq/L (3.5-5.1); Sodium 144 mEq/L (136-145); eGFR For African Americans > 60 (> 60); eGFR For Non-African Americans > 60 (> 60)
[2017-11-14] MEDS: Potassium Phosphate 44 MEQ in 0.9 % Sodium Chloride 250 ML IVPB PRN (14:12)
[2017-11-14 17:31] LABS: ABG Base Excess 9 mEq/L (-2 to 3); ABG HCO3 35 mEq/L (21-27); ABG Oxygen Saturation 94 % (95-98); ABG PCO2 52 mmHg (35-45); ABG PH 7.44 pH Units (7.32-7.45); ABG PO2 72 mmHg (85-104); ABG TCO2 37 mEq/L (20-26); Blood Gas Respiration Rate 16; Blood Gas VT 470 cc
[2017-11-14 17:35] LABS: Vancomycin,Trough 9 mcg/mL (5-10)
[2017-11-14 18:02] LABS: Creatine Kinase 273 Units/L (30-223)
[2017-11-15] MEDS: Ipratropium/Albuterol Neb 3 ML IH SCH ×6 (03:18→23:32)
[2017-11-15 03:51] LABS: Basophils % 0.1 %; Eosinophils % 0.9 %; Mean Corpuscular HGB Conc 31.8 g/dL (31.6-35.5); Mean Corpuscular Volume 81.6 fL (83.0-100.0); Red Cell Distribution Width 19.1 % (11.5-14.5)
[2017-11-15 03:52] LABS: VBG Ionized Calcium 1.06 mmol/L (1.15-1.35)
[2017-11-15 03:53] LABS: Eosinophils # 0.1 K/mcL (0.0-0.6); Hematocrit 37.7 % (37.5-50.1); Immature Granulocytes % 0.8 % (0-4); Immature Platelets 16.5 % (1.1-6.1); Lymphocytes % 13.5 %; Monocytes # 2.5 K/mcL (0.0-1.3); Monocytes % 16.5 %; Neutrophils # 10.3 K/mcL (1.6-8.9); Red Blood Count 4.62 M/mcL (4.19-5.50); Segmented Neutrophils % 68.2 %
[2017-11-15 03:56] LABS: Platelet Count 56 K/mcL (140-400)
[2017-11-15 04:09] LABS: BUN/Creatinine Ratio 22 (6-26); Blood Urea Nitrogen 21 mg/dL (8-23); Carbon Dioxide 32 mEq/L (23-29); Chloride 106 mEq/L (98-107); Magnesium 1.9 mg/dL (1.6-2.6); Phosphorous 2.2 mg/dL (2.7-4.5); Potassium 3.5 mEq/L (3.5-5.1); Sodium 144 mEq/L (136-145)
[2017-11-15 04:10] LABS: Glucose 161 mg/dL (70-105); Osmolality,Calculated 304 (280-300); eGFR For African Americans > 60 (> 60); eGFR For Non-African Americans > 60 (> 60)
[2017-11-15] MEDS ORDERED: *HR* Metoprolol 5 MG/5 ML VIAL IVP PRN (04:17)
[2017-11-15 04:30] LABS: ABG Base Excess 7 mEq/L (-2 to 3); ABG HCO3 33 mEq/L (21-27); ABG Oxygen Saturation 91 % (95-98); ABG PCO2 54 mmHg (35-45); ABG PO2 62 mmHg (85-104); ABG TCO2 35 mEq/L (20-26); Blood Gas Modality PRVC; Blood Gas Respiration Rate 16; Blood Gas VT 470 cc
[2017-11-15] MEDS: Potassium Chloride 40 MEQ/200 ML BAG IVPB PRN ×2 (04:33→14:12)
[2017-11-15] MEDS: Lacri-Lube 3.5 GM TUBE BOTH EYES SCH ×5 (04:33→21:14)
[2017-11-15] MEDS: *HR* Heparin 5,000 UNIT/ML VIAL SQ SCH ×2 (05:04→17:13)
[2017-11-15] MEDS: FentaNYL (PF) 1,000 MCG in 0.9 % Sodium Chloride 80 ML IVC SCH ×3 (06:25→21:41)
[2017-11-15] MEDS: Lactulose Oral Soln 20 GM/30 ML UDC PO SCH ×2 (08:25→21:41)
[2017-11-15] MEDS: Piperacillin/Tazobactam 3.375 GM in 0.9 % Sodium Chloride Mini Bag 100 ML IVPB SCH ×2 (08:25→16:21)
[2017-11-15] MEDS: Pantoprazole 40 MG VIAL IVP SCH (08:25)
[2017-11-15] MEDS: Chlorhexidine Rinse 15 ML MOUTHWASH MM SCH ×2 (08:25→21:41)
[2017-11-15] MEDS ORDERED: *HR* Metoprolol 5 MG/5 ML VIAL IVP ONE ×2 (08:32→08:33)
[2017-11-15 09:02] LABS: INR 1.7; Prothrombin Time 18.7 Seconds (9.4-12.1)
[2017-11-15] MEDS ORDERED: Aminoglycoside Consult 1 EACH MC ONE (09:39)
[2017-11-15] MEDS ORDERED: Amiodarone Premix 150 MG/100 ML BAG IVPB ONE (11:05)
[2017-11-15] MEDS ORDERED: Amiodarone Premix 360 MG/200 ML BAG IVC ONE (11:05)
[2017-11-15] MEDS ORDERED: Dextrose Gel 15 GM/37.5 ML TUBE PO PRN ×2 (11:07)
[2017-11-15] MEDS ORDERED: D5% in Water 1,000 ML IVC PRN (11:07)
[2017-11-15] MEDS ORDERED: *HR* Dextrose 50 % in Water (Syg) 50 ML SYRINGE IVP PRN (11:07)
--- NOTE | 2017-11-15 11:23 | Pulmonology Progress Note ---
<Heaven Tee N - Last Filed: 11/15/17 17:54> Date of Encounter: 11/15/17 Time of Encounter: 11:22 Assessment and Plan (1) Acute on chronic respiratory failure with hypercapnia Current Visit: Yes Status: Acute [facility]2017 with respiratory failure. Transferred to [facility] on 11/12/2017 for higher level of care. Intubated and admitted to the ICU Current condition is most likely secondary to COPD, complicated by pneumonia. CT scan revealed a multifocal pulmonary consolidations that are worsening. Nasal swab was positive for MRSA, patient was started on vancomycin and Zosyn. There has been interval worsening of the patient's clinical status as well as imaging, decision was made to switch vancomycin to the linezolid today. Patient also has a history of diastolic heart failure which may be contributing to his current condition. Patient was diuresed well, currently holding diuresis Continue DuoNeb's (2) COPD (chronic obstructive pulmonary disease) Current Visit: Yes Status: [facility] patient has a history of COPD, and may not be compliant with his at-home treatment Patient has been intubated for respiratory support, he will receive DuoNeb therapy Nasal MRSA PCR was positive, vancomycin and switched to linezolid Qualifiers: Qualified Code(s): J44.9 - Chronic obstructive pulmonary disease, unspecified (3) Encephalopathy Current Visit: Yes Status: Acute Per the [facility] patient has been encephalopathic/delirious during his stay Currently he opens his eyes and winces to pain however he is not oriented to his surroundings or himself. (4) Chronic a-fib Current Visit: No Status: Acute Patient has a history of A. fib [facility] patient is on apixaban and diltiazem. He has remained tachycardic with heart rate up to 160 He received Lopressor and Cardizem with little improvement in heart rate Amiodarone was started today, patient's heart rate improved into the upper 90s low 100s, but the rhythm remains irregular (5) Schizophrenia Current Visit: No Status: Chronic Currently holding psych meds as they may be contributing to patient's elevated temperature readings Qualifiers: Schizophrenia type: unspecified Qualified Code(s): F20.9 - Schizophrenia, unspecified Subjective Principal diagnosis: COPD, respiratory failure, hypoxia, pneumonia Interval history: Patient was seen and examined this morning with the attending present at bedside. Patient remains at his same level of alertness as yesterday. He spiked fevers yesterday up to 103, and has had low-grade fevers overnight. He also experienced some low oxygen saturation readings, his vent settings were changed overnight. A repeat chest x-ray was performed which showed interval worsening of his underlying pneumonia. He is also continued to be tachycardic due to his A. fib despite receiving Lopressor and Cardizem. Due to his interval worsening of underlying pneumonia/effusion interventional radiology was consulted for possible diagnostic versus therapeutic thoracentesis. IR evaluated the patient with ultrasound and stated that there was not large enough pocket of fluid for thoracentesis. The patient received a CT scan which showed multifocal pulmonary consolidations that had slightly worsened compared to the prior exam. Patient was started on amiodarone for his tachycardia with a heart rate up to 160 as if there was a possibility that his A. fib was contributing to his diastolic heart failure. Objective PUL Vital signs: Last Vital Signs Temp 100.4 F H 11/15/17 08:00 Pulse 129 11/15/17 09:00 Resp 20 11/15/17 11:16 BP 110/75 11/15/17 11:16 Pulse Ox 90 11/15/17 11:16 General appearance: other (Intubated, sedated, patient does wince to pain) Auscultation: bilateral: rhonchi (Rhonchorous breath sounds bilaterally, worse on the left) Cardiovascular: irregular rhythm, other (Tachycardic with a heart rate of 160) Gastrointestinal: normoactive bowel sounds, soft Extremities: other (Wounds left leg) Ventilator Settings Ventilator Settings: Ventilator Settings, Last 8 Hours Ventilator Tidal Volume 470 Setting Ventilator Tidal Volume 470 Setting Ventilator Tidal Volume 470 Setting Ventilator Tidal Volume 470 Setting Ventilator Tidal Volume 470 Setting Ventilator Tidal Volume 470 Setting Ventilator Tidal Volume 470 Setting Ventilator Tidal Volume 470 Setting Ventilator Tidal Volume 470 Setting Ventilator Respiratory Rate 16 Setting Ventilator Respiratory Rate 16 Setting Ventilator Respiratory Rate 16 Setting Ventilator Respiratory Rate 16 Setting Ventilator Respiratory Rate 16 Setting Ventilator Respiratory Rate 16 Setting Ventilator Respiratory Rate 16 Setting Ventilator Respiratory Rate 16 Setting Ventilator Respiratory Rate 16 Setting Actual Respiratory Rate 20 Actual Respiratory Rate 25 Actual Respiratory Rate 25 Actual Respiratory Rate 18 Actual Respiratory Rate 22 Actual Respiratory Rate 17 Actual Respiratory Rate 25 Actual Respiratory Rate 19 Positive End Expiratory 10 Pressure Positive End Expiratory 10 Pressure Positive End Expiratory 10 Pressure Positive End Expiratory 10 Pressure Positive End Expiratory 10 Pressure Positive End Expiratory 10 Pressure Positive End Expiratory 10 Pressure Positive End Expiratory 10 Pressure Positive End Expiratory 10 Pressure Peak Inspiratory Airway 16 Pressure Peak Inspiratory Airway 31 Pressure Peak Inspiratory Airway 19 Pressure Peak Inspiratory Airway 21 Pressure Peak Inspiratory Airway 12 Pressure Peak Inspiratory Airway 13 Pressure Peak Inspiratory Airway 15 Pressure Peak Inspiratory Airway 12 Pressure Results - Laboratory Findings CBC and BMP: 11/15/17 03:25 11/15/17 12:10 ABG ABG pH 7.40 pH Units (7.32-7.45) 11/15/17 04:23 ABG pCO2 54 mmHg (35-45) H 11/15/17 04:23 ABG pO2 62 mmHg (85-104) L 11/15/17 04:23 ABG O2 Saturation 91 % (95-98) L 11/15/17 04:23 PT/INR, D-dimer PT 18.7 Seconds (9.4-12.1) H 11/15/17 08:48 Abnormal lab findings: Abnormal lab results WBC 15.1 K/mcL (4.3-11.1) H 11/15/17 03:25 Hgb 12.0 g/dL (12.9-16.9) L 11/15/17 03:25 MCV 81.6 fL (83.0-100.0) L 11/15/17 03:25 MCH 26.0 pg (28.0-33.3) L 11/15/17 03:25 RDW 19.1 % (11.5-14.5) H 11/15/17 03:25 Plt Count 56 K/mcL (140-400) L 11/15/17 03:25 Neutrophils # 10.3 K/mcL (1.6-8.9) H 11/15/17 03:25 Monocytes # 2.5 K/mcL (0.0-1.3) H 11/15/17 03:25 Nucleated RBCs/100 WBC 0.3 /100 WBC (0) H 11/12/17 15:00 Immature Plt Fraction 16.5 % (1.1-6.1) H 11/15/17 03:25 PT 18.7 Seconds (9.4-12.1) H 11/15/17 08:48 ABG pCO2 54 mmHg (35-45) H 11/15/17 04:23 ABG pO2 62 mmHg (85-104) L 11/15/17 04:23 ABG HCO3 33 mEq/L (21-27) H 11/15/17 04:23 ABG Total CO2 35 mEq/L (20-26) H 11/15/17 04:23 ABG O2 Saturation 91 % (95-98) L 11/15/17 04:23 ABG Base Excess 7 mEq/L (-2 to 3) H 11/15/17 04:23 Carbon Dioxide 32 mEq/L (23-29) H 11/15/17 03:25 Glucose 161 mg/dL (70-105) H 11/15/17 03:25 POC Glucose 194 mg/dL (70-99) H 11/14/17 23:37 Calculated Osmolality 304 (280-300) H 11/15/17 03:25 Calcium 8.0 mg/dL (8.6-10.3) L 11/15/17 03:25 Venous Ioniz Calcium 1.06 mmol/L (1.15-1.35) L 11/15/17 03:48 Phosphorus 2.2 mg/dL (2.7-4.5) L 11/15/17 03:25 Creatine Kinase 273 Units/L (30-223) H 11/14/17 17:03 B-Natriuretic Peptide 375 pg/mL (Less than 100) H 11/15/17 08:48 Serum Total Protein 6.0 g/dL (6.4-8.9) L 11/14/17 13:22 Albumin 2.7 g/dL (3.5-5.7) L 11/14/17 13:22 Albumin/Globulin Ratio 0.8 (1.1-2.2) L 11/14/17 13:22 Urine Protein 30 mg/dL (Neg-Trace) H 11/12/17 14:59 Urine Microscopic WBC 3-5 per hpf (0-3) H 11/12/17 14:59 Ur Squamous Epith Cells Many per lpf (None-Few) H 11/12/17 14:59 Nasal Screen MRSA (PCR) Positive (Negative) A 11/13/17 11:05 - Microbiology Findings Microbiology Findings: Microbiology, Last 48 Hours 11/14/17 15:49 Blood Culture - Preliminary Peripheral Venipuncture Culture is incubating and being continuously monitored for growth. Final report to follow. 11/14/17 15:40 Blood Culture - Preliminary Central Venous Catheter Culture is incubating and being continuously monitored for growth. Final report to follow. 11/12/17 16:00 Sputum Culture - Preliminary Sputum - Clinical Findings Intake & Output: Intake & Output 11/14/17 11/15/17 11/15/17 23:59 07:59 15:59 Intake Total 1445 / 1445 1549 / 1549 544 / 544 Output Total 1000 / 1000 700 / 700 125 / 125 Balance 445 / 445 849 / 849 419 / 419 Weight 120.6 kg - VTE Documentation of Mechanical Device: Intermittent pneumatic compression device Consult Discharge Plan - Plan [facility]Primary [facility] Provider[facility] - <Daphne Arcos - Last Filed: 11/15/17 23:00> Date of Encounter: 11/15/17 Objective PUL Vital signs: Last Vital Signs Temp 99.0 F 11/15/17 20:00 Pulse 105 11/15/17 22:00 Resp 16 11/15/17 22:00 BP 94/60 11/15/17 22:00 Pulse Ox 96 11/15/17 22:00 Ventilator Settings Ventilator Settings: Ventilator Settings, Last 8 Hours Ventilator Tidal Volume 470 Setting Ventilator Tidal Volume 470 Setting Ventilator Tidal Volume 470 Setting Ventilator Tidal Volume 470 Setting Ventilator Tidal Volume 470 Setting Ventilator Tidal Volume 470 Setting Ventilator Respiratory Rate 16 Setting Ventilator Respiratory Rate 16 Setting Ventilator Respiratory Rate 16 Setting Ventilator Respiratory Rate 16 Setting Ventilator Respiratory Rate 16 Setting Ventilator Respiratory Rate 16 Setting Actual Respiratory Rate 17 Actual Respiratory Rate 16 Actual Respiratory Rate 16 Actual Respiratory Rate 18 Actual Respiratory Rate 17 Actual Respiratory Rate 17 Positive End Expiratory 10 Pressure Positive End Expiratory 10 Pressure Positive End Expiratory 10 Pressure Positive End Expiratory 10 Pressure Positive End Expiratory 10 Pressure Positive End Expiratory 10 Pressure Peak Inspiratory Airway 29 Pressure Peak Inspiratory Airway 25 Pressure Peak Inspiratory Airway 24 Pressure Peak Inspiratory Airway 18 Pressure Peak Inspiratory Airway 26 Pressure Peak Inspiratory Airway 26 Pressure Results - Laboratory Findings CBC and BMP: 11/15/17 03:25 11/15/17 12:10 ABG ABG pH 7.40 pH Units (7.32-7.45) 11/15/17 04:23 ABG pCO2 54 mmHg (35-45) H 11/15/17 04:23 ABG pO2 62 mmHg (85-104) L 11/15/17 04:23 ABG O2 Saturation 91 % (95-98) L 11/15/17 04:23 PT/INR, D-dimer PT 18.7 Seconds (9.4-12.1) H 11/15/17 08:48 Abnormal lab findings: Abnormal lab results WBC 15.1 K/mcL (4.3-11.1) H 11/15/17 03:25 Hgb 12.0 g/dL (12.9-16.9) L 11/15/17 03:25 MCV 81.6 fL (83.0-100.0) L 11/15/17 03:25 MCH 26.0 pg (28.0-33.3) L 11/15/17 03:25 RDW 19.1 % (11.5-14.5) H 11/15/17 03:25 Plt Count 56 K/mcL (140-400) L 11/15/17 03:25 Neutrophils # 10.3 K/mcL (1.6-8.9) H 11/15/17 03:25 Monocytes # 2.5 K/mcL (0.0-1.3) H 11/15/17 03:25 Nucleated RBCs/100 WBC 0.3 /100 WBC (0) H 11/12/17 15:00 Immature Plt Fraction 16.5 % (1.1-6.1) H 11/15/17 03:25 PT 18.7 Seconds (9.4-12.1) H 11/15/17 08:48 ABG pCO2 54 mmHg (35-45) H 11/15/17 04:23 ABG pO2 62 mmHg (85-104) L 11/15/17 04:23 ABG HCO3 33 mEq/L (21-27) H 11/15/17 04:23 ABG Total CO2 35 mEq/L (20-26) H 11/15/17 04:23 ABG O2 Saturation 91 % (95-98) L 11/15/17 04:23 ABG Base Excess 7 mEq/L (-2 to 3) H 11/15/17 04:23 Carbon Dioxide 32 mEq/L (23-29) H 11/15/17 03:25 Glucose 161 mg/dL (70-105) H 11/15/17 03:25 POC Glucose 194 mg/dL (70-99) H 11/14/17 23:37 Calculated Osmolality 304 (280-300) H 11/15/17 03:25 Calcium 8.0 mg/dL (8.6-10.3) L 11/15/17 03:25 Venous Ioniz Calcium 1.06 mmol/L (1.15-1.35) L 11/15/17 12:24 Phosphorus 2.0 mg/dL (2.7-4.5) L 11/15/17 12:10 Creatine Kinase 273 Units/L (30-223) H 11/14/17 17:03 B-Natriuretic Peptide 375 pg/mL (Less than 100) H 11/15/17 08:48 Serum Total Protein 6.0 g/dL (6.4-8.9) L 11/14/17 13:22 Albumin 2.7 g/dL (3.5-5.7) L 11/14/17 13:22 Albumin/Globulin Ratio 0.8 (1.1-2.2) L 11/14/17 13:22 Urine Protein 30 mg/dL (Neg-Trace) H 11/12/17 14:59 Urine Microscopic WBC 3-5 per hpf (0-3) H 11/12/17 14:59 Ur Squamous Epith Cells Many per lpf (None-Few) H 11/12/17 14:59 Nasal Screen MRSA (PCR) Positive (Negative) A 11/13/17 11:05 Staphylococcus sp PCR DETECTED (Not Detect) A 11/14/17 15:40 mecA-Methicil Res Gene DETECTED (Not Detect) A 11/14/17 15:40 - Microbiology Findings Microbiology Findings: Microbiology, Last 48 Hours 11/14/17 15:40 Blood Culture - Preliminary Central Venous Catheter Gram Positive Cocci 11/12/17 16:00 Sputum Culture - Preliminary Sputum 11/14/17 15:49 Blood Culture - Preliminary Peripheral Venipuncture Culture is incubating and being continuously monitored for growth. Final report to follow. - Clinical Findings Intake & Output: Intake & Output 11/15/17 11/15/17 11/15/17 07:59 15:59 23:59 Intake Total 1549 / 1549 1359 / 1359 1085 / 1085 Output Total 700 / 700 450 / 450 350 / 350 Balance 849 / 849 909 / 909 735 / 735 Weight 120.6 kg - Attending Attestation I saw and evaluated this patient and my medical decision-making was reviewed with the Resident Physician. I agree with the documented findings, disposition and treatment plan as described except to the extent set forth below. We independently had [id number] contact with the patient I spent 40 minutes of Critical Care time with this patient. It involved decision making of high complexity to assess, manipulate, and support vital organ system failure and/or to prevent further life threatening deterioration of the patient's condition. The time involved in the performance of separately reportable procedures was not counted toward critical care time. Patient seen and examined at bedside Labs, radiology, chart personally reviewed. Management was reviewed during multidisciplinary critical care rounds. L D RN:Patient is awake following on and off commands Pulm: Patient has component of acute on chronic diastolic heart failure with COPD started diuresing as tolerated , to continue bronchodilators and steroids. Low- tidal volume strategy . (FiO2 as possible to keep SPO2 around 90-92% liberate PEEP after FiO2 has come down. 11/15 Patient has oxygenation worsened , CXR worsening pulmonary edema and possible pneumonia since patient was spiking fever attempted diagnostic tap i myself did US of Lung which showed more consolidated lung than pleural effusion had a 1-2 cm layer pleural fluid was there IR was consulted even with their curvilinear probe there was no safe pocket was indentified . Will hold off diuresis for now . CT chest showed stable bilateral pleural effusion with worsening pulmonary consolidation changed to vancomycin to Linezolid Cards: And hemodynamically stable echo showed EF of 55% acute on chronic diastolic heart failure. Will hold off diurertics looks like patient might develop septic shock FEN-GI: As per dietary recommendations.will evaluate with RUQ ultrasound to make sure any infectious process going on since patient is having the high fevers Renal: Labs and output reviewed ID: Patient was spiking fever repeated the CT scan showed that he has worsening pneumonia will change Vancomycin and Linezolid Heme/Onc:To continue DVT prophylaxis Endo: Glucose Monitored Integ/MSK: Skin Care per routine ICU Nursing Protocol to prevent ulcers. Lines: All lines examined without evidence of infection : Dispo: Critically ill CODE: Full Code
[2017-11-15] MEDS: *HR* Metoprolol 5 MG/5 ML VIAL IVP SCH ×2 (11:38→17:13)
[2017-11-15] MEDS: Amiodarone Premix 360 MG/200 ML BAG IVC SCH ×2 (11:39→17:14)
[2017-11-15] MEDS: Norepinephrine 4 MG in D5% in Water 250 ML IVC SCH (12:19)
[2017-11-15 12:29] LABS: VBG Ionized Calcium 1.06 mmol/L (1.15-1.35)
[2017-11-15 12:54] LABS: Magnesium 2.2 mg/dL (1.6-2.6); Potassium 3.7 mEq/L (3.5-5.1)
[2017-11-15] MEDS: Insulin LISPRO 300 UNITS/3 ML VIAL SQ SCH ×3 (13:21→21:14)
[2017-11-15] MEDS: Potassium Phosphate 44 MEQ in 0.9 % Sodium Chloride 250 ML IVPB PRN (14:37)
[2017-11-15 21:48] LABS: blaKPC Carbapenem-Resist Gene Not Detected (Not Detect); mecA Methicillin-Resist Gene DETECTED (Not Detect); vanA/B Vancomycin-Resist Genes Not Detected (Not Detect)
[2017-11-15 21:49] LABS: Acinetobacter baumannii by PCR Not Detected (Not Detect); Candida albicans by PCR Not Detected (Not Detect); Candida glabrata by PCR Not Detected (Not Detect); Candida krusei by PCR Not Detected (Not Detect); Candida parapsilosis by PCR Not Detected (Not Detect); Candida tropicalis by PCR Not Detected (Not Detect); Enterococcus by PCR Not Detected (Not Detect); Escherichia coli by PCR Not Detected (Not Detect); Klebsiella oxytoca by PCR Not Detected (Not Detect); Klebsiella pneumoniae by PCR Not Detected (Not Detect); Pseudomonas aeruginosa by PCR Not Detected (Not Detect); Serratia marcescens by PCR Not Detected (Not Detect); Staphylococcus aureus by PCR Not Detected (Not Detect); Streptococcus agalactiae(B)PCR Not Detected (Not Detect); Streptococcus by PCR Not Detected (Not Detect); Streptococcus pneumoniae PCR Not Detected (Not Detect); Streptococcus pyogenes (A) PCR Not Detected (Not Detect)
[2017-11-16] MEDS: Piperacillin/Tazobactam 3.375 GM in 0.9 % Sodium Chloride Mini Bag 100 ML IVPB SCH ×3 (00:48→16:10)
[2017-11-16] MEDS: *HR* Metoprolol 5 MG/5 ML VIAL IVP SCH ×4 (00:50→18:19)
[2017-11-16] MEDS: Insulin LISPRO 300 UNITS/3 ML VIAL SQ SCH ×6 (00:51→19:57)
[2017-11-16] MEDS: Lacri-Lube 3.5 GM TUBE BOTH EYES SCH ×6 (00:51→19:55)
[2017-11-16 03:08] LABS: Basophils % 0.1 %
[2017-11-16 03:10] LABS: Eosinophils # 0.3 K/mcL (0.0-0.6); Eosinophils % 2.2 %; Hematocrit 35.3 % (37.5-50.1); Immature Granulocytes % 1.1 % (0-4); Lymphocytes # 1.4 K/mcL (0.6-4.6); Mean Corpuscular HGB Conc 31.2 g/dL (31.6-35.5); Mean Corpuscular Hemoglobin 25.7 pg (28.0-33.3); Mean Corpuscular Volume 82.5 fL (83.0-100.0); Monocytes # 2.6 K/mcL (0.0-1.3); Monocytes % 18.2 %; Red Blood Count 4.28 M/mcL (4.19-5.50); Red Cell Distribution Width 19.6 % (11.5-14.5); Segmented Neutrophils % 68.4 %
[2017-11-16 03:24] LABS: Neutrophils # 9.7 K/mcL (1.6-8.9)
[2017-11-16 03:25] LABS: BUN/Creatinine Ratio 24 (6-26); Blood Urea Nitrogen 21 mg/dL (8-23); Calcium 8.3 mg/dL (8.6-10.3); Carbon Dioxide 32 mEq/L (23-29); Chloride 104 mEq/L (98-107); Glucose 208 mg/dL (70-105); Magnesium 2.1 mg/dL (1.6-2.6); Osmolality,Calculated 299 (280-300); Phosphorous 2.9 mg/dL (2.7-4.5); Sodium 140 mEq/L (136-145); eGFR For African Americans > 60 (> 60); eGFR For Non-African Americans > 60 (> 60)
[2017-11-16] MEDS: Ipratropium/Albuterol Neb 3 ML IH SCH ×5 (03:25→19:46)
[2017-11-16 03:31] LABS: Platelet Count 93 K/mcL (140-400); Platelet Estimate Decreased (Normal)
[2017-11-16 03:32] LABS: Anisocytosis 1+ (Not Present); Microcytosis Present (Not Present); Polychromasia 1+ (Not Present)
[2017-11-16 03:33] LABS: Burr Cells 1+ (Not Present)
[2017-11-16 03:35] LABS: VBG Ionized Calcium 1.09 mmol/L (1.15-1.35)
[2017-11-16] MEDS: Amiodarone Premix 360 MG/200 ML BAG IVC SCH ×3 (04:01→19:34)
[2017-11-16] MEDS: FentaNYL (PF) 1,000 MCG in 0.9 % Sodium Chloride 80 ML IVC SCH ×3 (04:02→17:25)
[2017-11-16 06:03] LABS: ABG Base Excess 7 mEq/L (-2 to 3); ABG HCO3 35 mEq/L (21-27); ABG Oxygen Saturation 90 % (95-98); ABG PCO2 61 mmHg (35-45); ABG PH 7.36 pH Units (7.32-7.45); ABG PO2 63 mmHg (85-104); ABG TCO2 37 mEq/L (20-26); Blood Gas Modality VC; Blood Gas Respiration Rate 16; Blood Gas VT 470 cc
[2017-11-16] MEDS: *HR* Heparin 5,000 UNIT/ML VIAL SQ SCH ×2 (06:45→18:10)
[2017-11-16] MEDS: Chlorhexidine Rinse 15 ML MOUTHWASH MM SCH ×2 (09:10→19:56)
[2017-11-16] MEDS: Lactulose Oral Soln 20 GM/30 ML UDC PO SCH ×2 (09:10→19:57)
[2017-11-16] MEDS: Pantoprazole 40 MG VIAL IVP SCH (09:10)
[2017-11-16] MEDS ORDERED: Amiodarone Premix 150 MG/100 ML BAG IVPB ONE (11:44)
--- NOTE | 2017-11-16 12:42 | Pulmonology Progress Note ---
<Heaven Tee N - Last Filed: 11/16/17 17:56> Date of Encounter: 11/16/17 Time of Encounter: 12:42 Assessment and Plan (1) Acute on chronic respiratory failure with hypercapnia Current Visit: Yes Status: Acute Patient was admitted to the [facility] on 11/06/2017 with respiratory failure. Transferred to [facility] on 11/12/2017 for higher level of care. Intubated and admitted to the ICU Current condition is most likely secondary to COPD, complicated by pneumonia. CT scan revealed a multifocal pulmonary consolidations that are worsening. Serology positive for MRSA, switched vancomycin to linezolid. Labs improved with a slight decrease in WBC count and no recent fevers continue current antibiotics (2) COPD (chronic obstructive pulmonary disease) Current Visit: Yes Status: Acute Per [facility] records patient has a history of COPD, and may not be compliant with his at-home treatment Patient has been intubated for respiratory support, he will receive DuoNeb therapy continue duonebs and antibiotics Qualifiers: Qualified Code(s): J44.9 - Chronic obstructive pulmonary disease, unspecified (3) Encephalopathy Current Visit: Yes Status: Acute Per the [facility] records patient has been encephalopathic/delirious during his stay Currently he opens his eyes and winces to pain however he is not oriented to his surroundings or himself. (4) Chronic a-fib Current Visit: No Status: Acute Patient has a history of A. fib Per the [place] records patient is on apixaban and diltiazem. He has remained tachycardic with heart rate up to 160 He has been on scheduled Lopressor, Cardizem, and amiodarone drip. Patient has not improved, remains tachycardic with heart rate in the 140s. We will consider adding digoxin tomorrow if he continues remained tachycardic. (5) Schizophrenia Current Visit: No Status: Chronic Currently holding psych meds as they may be contributing to patient's elevated temperature readings Qualifiers: Schizophrenia type: unspecified Qualified Code(s): F20.9 - Schizophrenia, unspecified Subjective Principal diagnosis: COPD, respiratory failure, hypoxia, pneumonia Interval history: Patient was seen and examined this morning with the attending present at bedside. His serology was positive for MRSA and he spiked fevers the previous [address] scan showed interval worsening of possible underlying pneumonia. Antibiotic was changed to a Nasalide and fevers have subsided in the last day, his white blood cell count has decreased slightly 14.2. He continues to be minimally responsive. Currently tachycardic, received bolus amiodarone and 1 mg /min amiodarone drip. Patient did not respond well and remains tachycardic with a heart rate in the 140s. Objective PUL Vital signs: Last Vital Signs Temp 98.1 F 11/16/17 08:00 Pulse 118 11/16/17 10:00 Resp 20 11/16/17 11:28 BP 85/54 11/16/17 10:00 Pulse Ox 90 11/16/17 11:28 General appearance: other (Intubated, minimally responsive) Auscultation: bilateral: rhonchi Cardiovascular: irregular rhythm, other (Tachycardic) Gastrointestinal: other (Distended) Integumentary: other (Left lower extremity wounds) Extremities: no cyanosis, edema Ventilator Settings Ventilator Settings: Ventilator Settings, Last 8 Hours Ventilator Tidal Volume 470 Setting Ventilator Tidal Volume 470 Setting Ventilator Tidal Volume 470 Setting Ventilator Tidal Volume 470 Setting Ventilator Tidal Volume 470 Setting Ventilator Tidal Volume 470 Setting Ventilator Respiratory Rate 16 Setting Ventilator Respiratory Rate 16 Setting Ventilator Respiratory Rate 16 Setting Ventilator Respiratory Rate 16 Setting Ventilator Respiratory Rate 16 Setting Ventilator Respiratory Rate 16 Setting Actual Respiratory Rate 21 Actual Respiratory Rate 18 Actual Respiratory Rate 19 Actual Respiratory Rate 18 Actual Respiratory Rate 21 Positive End Expiratory 14 Pressure Positive End Expiratory 14 Pressure Positive End Expiratory 5 Pressure Positive End Expiratory 10 Pressure Positive End Expiratory 5 Pressure Positive End Expiratory 10 Pressure Peak Inspiratory Airway 23 Pressure Peak Inspiratory Airway 27 Pressure Peak Inspiratory Airway 23 Pressure Peak Inspiratory Airway 19 Pressure Peak Inspiratory Airway 15 Pressure Results - Laboratory Findings CBC and BMP: 11/16/17 02:56 11/16/17 02:56 ABG ABG pH 7.36 pH Units (7.32-7.45) 11/16/17 06:00 ABG pCO2 61 mmHg (35-45) H 11/16/17 06:00 ABG pO2 63 mmHg (85-104) L 11/16/17 06:00 ABG O2 Saturation 90 % (95-98) L 11/16/17 06:00 PT/INR, D-dimer PT 18.7 Seconds (9.4-12.1) H 11/15/17 08:48 Abnormal lab findings: Abnormal lab results WBC 14.2 K/mcL (4.3-11.1) H 11/16/17 02:56 Hgb 11.0 g/dL (12.9-16.9) L 11/16/17 02:56 Hct 35.3 % (37.5-50.1) L 11/16/17 02:56 MCV 82.5 fL (83.0-100.0) L 11/16/17 02:56 MCH 25.7 pg (28.0-33.3) L 11/16/17 02:56 MCHC 31.2 g/dL (31.6-35.5) L 11/16/17 02:56 RDW 19.6 % (11.5-14.5) H 11/16/17 02:56 Plt Count 93 K/mcL (140-400) L D 11/16/17 02:56 Neutrophils # 9.7 K/mcL (1.6-8.9) H 11/16/17 02:56 Monocytes # 2.6 K/mcL (0.0-1.3) H 11/16/17 02:56 Nucleated RBCs/100 WBC 0.3 /100 WBC (0) H 11/12/17 15:00 Platelet Estimate Decreased (Normal) L 11/16/17 02:56 Immature Plt Fraction 21.0 % (1.1-6.1) H 11/16/17 02:56 Polychromasia 1+ (Not Present) A 11/16/17 02:56 Anisocytosis 1+ (Not Present) A 11/16/17 02:56 Microcytosis Present (Not Present) A 11/16/17 02:56 Kayla Cells 1+ (Not Present) A 11/16/17 02:56 PT 18.7 Seconds (9.4-12.1) H 11/15/17 08:48 ABG pCO2 61 mmHg (35-45) H 11/16/17 06:00 ABG pO2 63 mmHg (85-104) L 11/16/17 06:00 ABG HCO3 35 mEq/L (21-27) H 11/16/17 06:00 ABG Total CO2 37 mEq/L (20-26) H 11/16/17 06:00 ABG O2 Saturation 90 % (95-98) L 11/16/17 06:00 ABG Base Excess 7 mEq/L (-2 to 3) H 11/16/17 06:00 Carbon Dioxide 32 mEq/L (23-29) H 11/16/17 02:56 Glucose 208 mg/dL (70-105) H 11/16/17 02:56 Calcium 8.3 mg/dL (8.6-10.3) L 11/16/17 02:56 Venous Ioniz Calcium 1.09 mmol/L (1.15-1.35) L 11/16/17 03:29 Creatine Kinase 273 Units/L (30-223) H 11/14/17 17:03 B-Natriuretic Peptide 375 pg/mL (Less than 100) H 11/15/17 08:48 Serum Total Protein 6.0 g/dL (6.4-8.9) L 11/14/17 13:22 Albumin 2.7 g/dL (3.5-5.7) L 11/14/17 13:22 Albumin/Globulin Ratio 0.8 (1.1-2.2) L 11/14/17 13:22 Urine Protein 30 mg/dL (Neg-Trace) H 11/12/17 14:59 Urine Microscopic WBC 3-5 per hpf (0-3) H 11/12/17 14:59 Ur Squamous Epith Cells Many per lpf (None-Few) H 11/12/17 14:59 Nasal Screen MRSA (PCR) Positive (Negative) A 11/13/17 11:05 Staphylococcus sp PCR DETECTED (Not Detect) A 11/14/17 15:40 mecA-Methicil Res Gene DETECTED (Not Detect) A 11/14/17 15:40 - Microbiology Findings Microbiology Findings: Microbiology, Last 48 Hours 11/12/17 16:00 Sputum Culture - Final Sputum 11/14/17 15:40 Blood Culture - Preliminary Central Venous Catheter Gram Positive Cocci 11/14/17 15:49 Blood Culture - Preliminary Peripheral Venipuncture Culture is incubating and being continuously monitored for growth. Final report to follow. - Clinical Findings Intake & Output: Intake & Output 11/15/17 11/16/17 11/16/17 23:59 07:59 15:59 Intake Total 1345 / 1345 2477 / 2477 Output Total 350 / 350 410 / 410 150 / 150 Balance 995 / 995 2067 / 2067 -150 / -150 Weight 122.5 kg - VTE Documentation of Mechanical Device: Intermittent pneumatic compression device Consult Discharge Plan - Plan [facility]: [facility]Primary Care Provider[facility] - <Daphne Arcos - Last Filed: 11/17/17 12:13> Date of Encounter: 11/17/17 Objective PUL Vital signs: Last Vital Signs Temp 98.3 F 11/16/17 20:00 Pulse 105 11/16/17 22:00 Resp 19 11/17/17 11:20 BP 111/85 11/17/17 11:20 Pulse Ox 94 11/17/17 11:20 Ventilator Settings Ventilator Settings: Ventilator Settings, Last 8 Hours Ventilator Tidal Volume 470 Setting Ventilator Respiratory Rate 16 Setting Actual Respiratory Rate 18 Positive End Expiratory 14 Pressure Peak Inspiratory Airway 31 Pressure Results - Laboratory Findings CBC and BMP: 11/16/17 02:56 11/16/17 02:56 ABG ABG pH 7.35 pH Units (7.32-7.45) 11/17/17 05:08 ABG pCO2 65 mmHg (35-45) H 11/17/17 05:08 ABG pO2 88 mmHg (85-104) 11/17/17 05:08 ABG O2 Saturation 96 % (95-98) 11/17/17 05:08 PT/INR, D-dimer PT 18.7 Seconds (9.4-12.1) H 11/15/17 08:48 Abnormal lab findings: Abnormal lab results WBC 14.2 K/mcL (4.3-11.1) H 11/16/17 02:56 Hgb 11.0 g/dL (12.9-16.9) L 11/16/17 02:56 Hct 35.3 % (37.5-50.1) L 11/16/17 02:56 MCV 82.5 fL (83.0-100.0) L 11/16/17 02:56 MCH 25.7 pg (28.0-33.3) L 11/16/17 02:56 MCHC 31.2 g/dL (31.6-35.5) L 11/16/17 02:56 RDW 19.6 % (11.5-14.5) H 11/16/17 02:56 Plt Count 93 K/mcL (140-400) L D 11/16/17 02:56 Neutrophils # 9.7 K/mcL (1.6-8.9) H 11/16/17 02:56 Monocytes # 2.6 K/mcL (0.0-1.3) H 11/16/17 02:56 Nucleated RBCs/100 WBC 0.3 /100 WBC (0) H 11/12/17 15:00 Platelet Estimate Decreased (Normal) L 11/16/17 02:56 Immature Plt Fraction 21.0 % (1.1-6.1) H 11/16/17 02:56 Polychromasia 1+ (Not Present) A 11/16/17 02:56 Anisocytosis 1+ (Not Present) A 11/16/17 02:56 Microcytosis Present (Not Present) A 11/16/17 02:56 Kayla Cells 1+ (Not Present) A 11/16/17 02:56 PT 18.7 Seconds (9.4-12.1) H 11/15/17 08:48 ABG pCO2 65 mmHg (35-45) H 11/17/17 05:08 ABG HCO3 36 mEq/L (21-27) H 11/17/17 05:08 ABG Total CO2 38 mEq/L (20-26) H 11/17/17 05:08 ABG Base Excess 7 mEq/L (-2 to 3) H 11/17/17 05:08 Carbon Dioxide 32 mEq/L (23-29) H 11/16/17 02:56 Glucose 208 mg/dL (70-105) H 11/16/17 02:56 POC Glucose 135 mg/dL (70-99) H 11/16/17 23:44 Calcium 8.3 mg/dL (8.6-10.3) L 11/16/17 02:56 Venous Ioniz Calcium 1.10 mmol/L (1.15-1.35) L 11/17/17 06:49 Creatine Kinase 273 Units/L (30-223) H 11/14/17 17:03 B-Natriuretic Peptide 375 pg/mL (Less than 100) H 11/15/17 08:48 Serum Total Protein 6.0 g/dL (6.4-8.9) L 11/14/17 13:22 Albumin 2.7 g/dL (3.5-5.7) L 11/14/17 13:22 Albumin/Globulin Ratio 0.8 (1.1-2.2) L 11/14/17 13:22 Urine Protein 30 mg/dL (Neg-Trace) H 11/12/17 14:59 Urine Microscopic WBC 3-5 per hpf (0-3) H 11/12/17 14:59 Ur Squamous Epith Cells Many per lpf (None-Few) H 11/12/17 14:59 Nasal Screen MRSA (PCR) Positive (Negative) A 11/13/17 11:05 Staphylococcus sp PCR DETECTED (Not Detect) A 11/14/17 15:40 mecA-Methicil Res Gene DETECTED (Not Detect) A 11/14/17 15:40 - Microbiology Findings Microbiology Findings: Microbiology, Last 48 Hours 11/12/17 16:00 Sputum Culture - Final Sputum 11/14/17 15:40 Blood Culture - Preliminary Central Venous Catheter Gram Positive Cocci - Clinical Findings Intake & Output: Intake & Output 11/16/17 11/17/17 11/17/17 23:59 07:59 15:59 Intake Total 1178 / 1178 Output Total 225 / 225 Balance 953 / 953 - Attending Attestation - Attending Attestation I saw and evaluated this patient and my medical decision-making was reviewed with the Resident Physician. I agree with the documented findings, disposition and treatment plan as described except to the extent set forth below. We independently had [id number] contact with the patient I spent 35 minutes of Critical Care time with this patient. It involved decision making of high complexity to assess, manipulate, and support vital organ system failure and/or to prevent further life threatening deterioration of the patient's condition. The time involved in the performance of separately reportable procedures was not counted toward critical care time. Patient seen and examined at bedside Labs, radiology, chart personally reviewed. Management was reviewed during multidisciplinary critical care rounds. PHARMACY TECH CUSTOMER SERVICE:Patient is awake following on and off commands Pulm: Patient has component of acute on chronic diastolic heart failure with COPD started diuresing as tolerated , to continue bronchodilators and steroids. Low- tidal volume strategy . (FiO2 as possible to keep SPO2 around 90-92% liberate PEEP after FiO2 has come down. 11/15 Patient has oxygenation worsened , CXR worsening pulmonary edema and possible pneumonia since patient was spiking fever attempted diagnostic tap i myself did US of Lung which showed more consolidated lung than pleural effusion had a 1-2 cm layer pleural fluid was there IR was consulted even with their curvilinear probe there was no safe pocket was indentified . Will hold off diuresis for now . CT chest showed stable bilateral pleural effusion with worsening pulmonary consolidation changed to vancomycin to Linezolid 11/16 Patient V/Q mismatch worsened most likely due to worsening pulmonary edema and pneumonia and diabetes management this patient is in sepsis might require vasopressor support. titrated tidal volume and PEEP therapy Cards: And hemodynamically stable echo showed EF of 55% acute on chronic diastolic heart failure. Will hold off diurertics looks like patient might develop septic shock 11/16 patient's blood pressure is borderline most likely due to sepsis complicated by diastolic heart failure expect he might need persists will hold off diuretics. FEN-GI: As per dietary recommendations.will evaluate with RUQ ultrasound to make sure any infectious process going on since patient is having the high fevers 11/16 will advance as tolerated. We will follow dietary recs Renal: Labs and output reviewed ID: Patient was spiking fever repeated the CT scan showed that he has worsening pneumonia will change Vancomycin and Linezolid to continue other antibiotics.. Heme/Onc:To continue DVT prophylaxis Endo: Glucose Monitored Integ/MSK: Skin Care per routine ICU Nursing Protocol to prevent ulcers. Lines: All lines examined without evidence of infection : Dispo: Critically ill
[2017-11-16] MEDS: Norepinephrine 4 MG in D5% in Water 250 ML IVC SCH (13:02)
[2017-11-16 13:39] LABS: VBG Ionized Calcium 1.06 mmol/L (1.15-1.35)
[2017-11-16] MEDS: Potassium Phosphate 44 MEQ in 0.9 % Sodium Chloride 250 ML IVPB PRN (16:10)
[2017-11-16] MEDS: Phenylephrine 10 MG in D5% in Water 250 ML IVC SCH (22:38)
[2017-11-17 05:13] LABS: ABG Base Excess 7 mEq/L (-2 to 3); ABG HCO3 36 mEq/L (21-27); ABG Oxygen Saturation 96 % (95-98); ABG PCO2 65 mmHg (35-45); ABG PH 7.35 pH Units (7.32-7.45); ABG PO2 88 mmHg (85-104); ABG TCO2 38 mEq/L (20-26); Blood Gas Modality ASSIST CONTROL; Blood Gas Respiration Rate 16; Blood Gas VT 470 cc
[2017-11-17 07:37] LABS: BUN/Creatinine Ratio 27 (6-26); Blood Urea Nitrogen 26 mg/dL (8-23); Calcium 8.7 mg/dL (8.6-10.3); Carbon Dioxide 33 mEq/L (23-29); Chloride 100 mEq/L (98-107); Glucose 132 mg/dL (70-105); Osmolality,Calculated 291 (280-300); Potassium 4.3 mEq/L (3.5-5.1); Sodium 137 mEq/L (136-145); eGFR For African Americans > 60 (> 60); eGFR For Non-African Americans > 60 (> 60)
[2017-11-17] MEDS: Ipratropium/Albuterol Neb 3 ML IH SCH ×6 (07:55→23:29)
[2017-11-17] MEDS ORDERED: Vancomycin 750 MG VIAL IVPB ONE (09:47)
[2017-11-17] MEDS ORDERED: D5% in Water 250 ML ONE (09:47)
[2017-11-17 10:16] LABS: Basophils % 0.2 %; Eosinophils # 0.4 K/mcL (0.0-0.6); Hematocrit 37.3 % (37.5-50.1); Hemoglobin 11.4 g/dL (12.9-16.9); Immature Granulocytes % 1.3 % (0-4); Immature Platelets 24.6 % (1.1-6.1); Lymphocytes # 1.8 K/mcL (0.6-4.6); Lymphocytes % 12.7 %; Mean Corpuscular HGB Conc 30.6 g/dL (31.6-35.5); Mean Corpuscular Hemoglobin 25.2 pg (28.0-33.3); Mean Corpuscular Volume 82.3 fL (83.0-100.0); Monocytes # 2.5 K/mcL (0.0-1.3); Monocytes % 17.9 %; Platelet Count 169 K/mcL (140-400); Red Blood Count 4.53 M/mcL (4.19-5.50); Red Cell Distribution Width 20.3 % (11.5-14.5); Segmented Neutrophils % 64.9 %
[2017-11-17] MEDS ORDERED: Furosemide 40 MG/4 ML VIAL ONE (10:30)
[2017-11-17] MEDS ORDERED: Furosemide 40 MG/4 ML VIAL IV ONE (12:00)
[2017-11-17] MEDS: Lactulose Oral Soln 20 GM/30 ML UDC PO SCH ×2 (12:32→20:52)
[2017-11-17] MEDS: Insulin LISPRO 300 UNITS/3 ML VIAL SQ SCH ×5 (12:32→20:56)
[2017-11-17] MEDS: Lacri-Lube 3.5 GM TUBE BOTH EYES SCH ×6 (12:32→23:03)
[2017-11-17] MEDS: Chlorhexidine Rinse 15 ML MOUTHWASH MM SCH ×2 (12:32→20:52)
[2017-11-17] MEDS: Pantoprazole 40 MG VIAL IVP SCH (12:32)
[2017-11-17] MEDS: *HR* Heparin 5,000 UNIT/ML VIAL SQ SCH ×2 (12:32→16:57)
[2017-11-17] MEDS: Piperacillin/Tazobactam 3.375 GM in 0.9 % Sodium Chloride Mini Bag 100 ML IVPB SCH ×4 (12:32→22:59)
[2017-11-17] MEDS: Dexmedetomidine HCl 400 MCG/100 ML MLS IVC SCH ×2 (12:33→23:04)
[2017-11-17] MEDS: Norepinephrine 4 MG in D5% in Water 250 ML IVC SCH (12:34)
[2017-11-17] MEDS: Amiodarone Premix 360 MG/200 ML BAG IVC SCH ×3 (12:46→23:06)
--- NOTE | 2017-11-17 13:28 | Pulmonology Progress Note ---
<Heaven Tee N - Last Filed: 11/17/17 18:14> Date of Encounter: 11/17/17 Time of Encounter: 13:13 Assessment and Plan (1) Acute on chronic respiratory failure with hypercapnia Current Visit: Yes Status: Acute Patient was admitted to the [facility] on 11/06/2017 with respiratory failure. Transferred to [facility] on 11/12/2017 for higher level of care. Intubated and admitted to the ICU Current condition is most likely secondary to COPD, complicated by pneumonia. CT scan revealed a multifocal pulmonary consolidations that are worsening. Serology positive for MRSA, switched vancomycin to linezolid. Labs improved with a slight decrease in WBC count and no recent fevers continue current antibiotics Spoke with patient's sister regarding patient's current critical status and declining health, sister vocalizes that she would like to place patient on DNR/ DNI and would not like any chest compressions or CPR if the patient were to arrest. (2) COPD (chronic obstructive pulmonary disease) Current Visit: Yes Status: [facility] patient has a history of COPD, and may not be compliant with his at-home treatment Patient has been intubated for respiratory support, he will receive DuoNeb therapy continue duonebs and antibiotics Qualifiers: COPD type: unspecified COPD Qualified Code(s): J44.9 - Chronic obstructive pulmonary disease, unspecified (3) Encephalopathy Current Visit: Yes Status: Acute Per the OR records patient has been encephalopathic/delirious during his stay Currently he opens his eyes and winces to pain however he is not oriented to his surroundings or himself. (4) Chronic a-fib Current Visit: No Status: Acute Patient has a history of A. fib Per the OR records patient is on apixaban and diltiazem. He has remained tachycardic with heart rate up to 160 He has been on scheduled Lopressor, Cardizem, and amiodarone drip. Patient has not improved, remains tachycardic. (5) Schizophrenia Current Visit: No Status: Chronic Currently holding psych meds as they may be contributing to patient's elevated temperature readings Qualifiers: Schizophrenia type: unspecified Qualified Code(s): F20.9 - Schizophrenia, unspecified Subjective Principal diagnosis: COPD, respiratory failure, hypoxia, pneumonia Interval history: Patient was seen and examined this morning with the attending present at bedside. He is currently still on the ventilator. He has had no fevers that have been recorded since swithing vancomycin to linezolid. He continues to be minimally responsive and tachycardic. Met with patient's sister today to update her regarding patient's current status and to discuss goals of care. Palliative and nursing was present during this meeting. Patient sister vocalizes that she understands the critical nature of the patient's current condition, she states that she would not like to see him suffer and at this time would like to change his CODE STATUS to DNR/DNI stating that she does not want chest compressions or CPR or any aggressive resuscitative efforts if his heart were to stop. She will speak with family regarding placing the patient on comfort care and make a decision in the near future. Objective PUL Vital signs: Last Vital Signs Temp 98.8 F 11/17/17 12:00 Pulse 120 11/17/17 12:00 Resp 16 11/17/17 12:00 BP 104/82 11/17/17 12:00 Pulse Ox 93 11/17/17 12:00 General appearance: other (Intubated) Auscultation: bilateral: rhonchi Cardiovascular: other (Tachycardic) Gastrointestinal: normoactive bowel sounds Integumentary: other (Wound left lower extremity) Extremities: edema Ventilator Settings Ventilator Settings: Ventilator Settings, Last 8 Hours Ventilator Tidal Volume 470 Setting Ventilator Tidal Volume 470 Setting Ventilator Respiratory Rate 16 Setting Ventilator Respiratory Rate 16 Setting Actual Respiratory Rate 16 Actual Respiratory Rate 18 Positive End Expiratory 14 Pressure Positive End Expiratory 14 Pressure Peak Inspiratory Airway 32 Pressure Peak Inspiratory Airway 31 Pressure Results - Laboratory Findings CBC and BMP: 11/17/17 06:14 11/17/17 06:14 ABG ABG pH 7.35 pH Units (7.32-7.45) 11/17/17 05:08 ABG pCO2 65 mmHg (35-45) H 11/17/17 05:08 ABG pO2 88 mmHg (85-104) 11/17/17 05:08 ABG O2 Saturation 96 % (95-98) 11/17/17 05:08 PT/INR, D-dimer PT 18.7 Seconds (9.4-12.1) H 11/15/17 08:48 Abnormal lab findings: Abnormal lab results WBC 14.2 K/mcL (4.3-11.1) H 11/16/17 02:56 Hgb 11.0 g/dL (12.9-16.9) L 11/16/17 02:56 Hct 35.3 % (37.5-50.1) L 11/16/17 02:56 MCV 82.5 fL (83.0-100.0) L 11/16/17 02:56 MCH 25.7 pg (28.0-33.3) L 11/16/17 02:56 MCHC 31.2 g/dL (31.6-35.5) L 11/16/17 02:56 RDW 19.6 % (11.5-14.5) H 11/16/17 02:56 Plt Count 93 K/mcL (140-400) L D 11/16/17 02:56 Neutrophils # 9.7 K/mcL (1.6-8.9) H 11/16/17 02:56 Monocytes # 2.6 K/mcL (0.0-1.3) H 11/16/17 02:56 Nucleated RBCs/100 WBC 0.3 /100 WBC (0) H 11/12/17 15:00 Platelet Estimate Decreased (Normal) L 11/16/17 02:56 Immature Plt Fraction 21.0 % (1.1-6.1) H 11/16/17 02:56 Polychromasia 1+ (Not Present) A 11/16/17 02:56 Anisocytosis 1+ (Not Present) A 11/16/17 02:56 Microcytosis Present (Not Present) A 11/16/17 02:56 Steedman Cells 1+ (Not Present) A 11/16/17 02:56 PT 18.7 Seconds (9.4-12.1) H 11/15/17 08:48 ABG pCO2 65 mmHg (35-45) H 11/17/17 05:08 ABG HCO3 36 mEq/L (21-27) H 11/17/17 05:08 ABG Total CO2 38 mEq/L (20-26) H 11/17/17 05:08 ABG Base Excess 7 mEq/L (-2 to 3) H 11/17/17 05:08 Carbon Dioxide 32 mEq/L (23-29) H 11/16/17 02:56 Glucose 208 mg/dL (70-105) H 11/16/17 02:56 POC Glucose 135 mg/dL (70-99) H 11/16/17 23:44 Calcium 8.3 mg/dL (8.6-10.3) L 11/16/17 02:56 Venous Ioniz Calcium 1.10 mmol/L (1.15-1.35) L 11/17/17 06:49 Creatine Kinase 273 Units/L (30-223) H 11/14/17 17:03 B-Natriuretic Peptide 375 pg/mL (Less than 100) H 11/15/17 08:48 Serum Total Protein 6.0 g/dL (6.4-8.9) L 11/14/17 13:22 Albumin 2.7 g/dL (3.5-5.7) L 11/14/17 13:22 Albumin/Globulin Ratio 0.8 (1.1-2.2) L 11/14/17 13:22 Urine Protein 30 mg/dL (Neg-Trace) H 11/12/17 14:59 Urine Microscopic WBC 3-5 per hpf (0-3) H 11/12/17 14:59 Ur Squamous Epith Cells Many per lpf (None-Few) H 11/12/17 14:59 Nasal Screen MRSA (PCR) Positive (Negative) A 11/13/17 11:05 Staphylococcus sp PCR DETECTED (Not Detect) A 11/14/17 15:40 mecA-Methicil Res Gene DETECTED (Not Detect) A 11/14/17 15:40 - Microbiology Findings Microbiology Findings: Microbiology, Last 48 Hours 11/12/17 16:00 Sputum Culture - Final Sputum 11/14/17 15:40 Blood Culture - Preliminary Central Venous Catheter Gram Positive Cocci - Clinical Findings Intake & Output: Intake & Output 11/16/17 11/17/17 11/17/17 23:59 07:59 15:59 Intake Total 1278 / 1278 200 / 200 Output Total 225 / 225 850 / 850 Balance 1053 / 1053 200 / 200 -850 / -850 - VTE Documentation of Mechanical Device: Intermittent pneumatic compression device Consult Discharge Plan - Plan [facility]Primary Care Provider[facility] - <Daphne Arcos - Last Filed: 11/17/17 23:21> Date of Encounter: 11/17/17 Objective PUL Vital signs: Last Vital Signs Temp 98.9 F 11/17/17 21:01 Pulse 126 11/17/17 23:00 Resp 21 11/17/17 23:00 BP 105/72 11/17/17 23:00 Pulse Ox 93 11/17/17 23:00 Ventilator Settings Ventilator Settings: Ventilator Settings, Last 8 Hours Ventilator Tidal Volume 470 Setting Ventilator Tidal Volume 470 Setting Ventilator Tidal Volume 470 Setting Ventilator Tidal Volume 470 Setting Ventilator Tidal Volume 470 Setting Ventilator Tidal Volume 470 Setting Ventilator Tidal Volume 470 Setting Ventilator Tidal Volume 470 Setting Ventilator Tidal Volume 470 Setting Ventilator Tidal Volume 470 Setting Ventilator Tidal Volume 470 Setting Ventilator Tidal Volume 470 Setting Ventilator Respiratory Rate 16 Setting Ventilator Respiratory Rate 16 Setting Ventilator Respiratory Rate 16 Setting Ventilator Respiratory Rate 16 Setting Ventilator Respiratory Rate 16 Setting Ventilator Respiratory Rate 16 Setting Ventilator Respiratory Rate 16 Setting Ventilator Respiratory Rate 16 Setting Ventilator Respiratory Rate 16 Setting Ventilator Respiratory Rate 16 Setting Ventilator Respiratory Rate 16 Setting Ventilator Respiratory Rate 16 Setting Actual Respiratory Rate 21 Actual Respiratory Rate 24 Actual Respiratory Rate 21 Actual Respiratory Rate 20 Actual Respiratory Rate 21 Actual Respiratory Rate 21 Actual Respiratory Rate 21 Actual Respiratory Rate 20 Actual Respiratory Rate 20 Actual Respiratory Rate 17 Actual Respiratory Rate 18 Actual Respiratory Rate 16 Positive End Expiratory 14 Pressure Positive End Expiratory 14 Pressure Positive End Expiratory 14 Pressure Positive End Expiratory 14 Pressure Positive End Expiratory 14 Pressure Positive End Expiratory 14 Pressure Positive End Expiratory 14 Pressure Positive End Expiratory 14 Pressure Positive End Expiratory 14 Pressure Positive End Expiratory 14 Pressure Positive End Expiratory 14 Pressure Positive End Expiratory 14 Pressure Peak Inspiratory Airway 27 Pressure Peak Inspiratory Airway 26 Pressure Peak Inspiratory Airway 27 Pressure Peak Inspiratory Airway 30 Pressure Peak Inspiratory Airway 30 Pressure Peak Inspiratory Airway 29 Pressure Peak Inspiratory Airway 30 Pressure Peak Inspiratory Airway 29 Pressure Peak Inspiratory Airway 30 Pressure Peak Inspiratory Airway 30 Pressure Peak Inspiratory Airway 27 Pressure Peak Inspiratory Airway 20 Pressure Results - Laboratory Findings CBC and BMP: 11/17/17 06:14 11/17/17 06:14 ABG ABG pH 7.35 pH Units (7.32-7.45) 11/17/17 05:08 ABG pCO2 65 mmHg (35-45) H 11/17/17 05:08 ABG pO2 88 mmHg (85-104) 11/17/17 05:08 ABG O2 Saturation 96 % (95-98) 11/17/17 05:08 PT/INR, D-dimer PT 18.7 Seconds (9.4-12.1) H 11/15/17 08:48 Abnormal lab findings: Abnormal lab results WBC 13.9 K/mcL (4.3-11.1) H 11/17/17 06:14 Hgb 11.4 g/dL (12.9-16.9) L 11/17/17 06:14 Hct 37.3 % (37.5-50.1) L 11/17/17 06:14 MCV 82.3 fL (83.0-100.0) L 11/17/17 06:14 MCH 25.2 pg (28.0-33.3) L 11/17/17 06:14 MCHC 30.6 g/dL (31.6-35.5) L 11/17/17 06:14 RDW 20.3 % (11.5-14.5) H 11/17/17 06:14 Neutrophils # 9.0 K/mcL (1.6-8.9) H 11/17/17 06:14 Monocytes # 2.5 K/mcL (0.0-1.3) H 11/17/17 06:14 Nucleated RBCs/100 WBC 0.3 /100 WBC (0) H 11/12/17 15:00 Platelet Estimate Decreased (Normal) L 11/16/17 02:56 Immature Plt Fraction 24.6 % (1.1-6.1) H 11/17/17 06:14 Polychromasia 1+ (Not Present) A 11/16/17 02:56 Anisocytosis 1+ (Not Present) A 11/16/17 02:56 Microcytosis Present (Not Present) A 11/16/17 02:56 Steedman Cells 1+ (Not Present) A 11/16/17 02:56 PT 18.7 Seconds (9.4-12.1) H 11/15/17 08:48 ABG pCO2 65 mmHg (35-45) H 11/17/17 05:08 ABG HCO3 36 mEq/L (21-27) H 11/17/17 05:08 ABG Total CO2 38 mEq/L (20-26) H 11/17/17 05:08 ABG Base Excess 7 mEq/L (-2 to 3) H 11/17/17 05:08 Carbon Dioxide 33 mEq/L (23-29) H 11/17/17 06:14 BUN 26 mg/dL (8-23) H 11/17/17 06:14 BUN/Creatinine Ratio 27 (6-26) H 11/17/17 06:14 Glucose 132 mg/dL (70-105) H 11/17/17 06:14 POC Glucose 135 mg/dL (70-99) H 11/16/17 23:44 Venous Ioniz Calcium 1.10 mmol/L (1.15-1.35) L 11/17/17 06:49 Creatine Kinase 273 Units/L (30-223) H 11/14/17 17:03 B-Natriuretic Peptide 375 pg/mL (Less than 100) H 11/15/17 08:48 Serum Total Protein 6.0 g/dL (6.4-8.9) L 11/14/17 13:22 Albumin 2.7 g/dL (3.5-5.7) L 11/14/17 13:22 Albumin/Globulin Ratio 0.8 (1.1-2.2) L 11/14/17 13:22 Urine Protein 30 mg/dL (Neg-Trace) H 11/12/17 14:59 Urine Microscopic WBC 3-5 per hpf (0-3) H 11/12/17 14:59 Ur Squamous Epith Cells Many per lpf (None-Few) H 11/12/17 14:59 Nasal Screen MRSA (PCR) Positive (Negative) A 11/13/17 11:05 Staphylococcus sp PCR DETECTED (Not Detect) A 11/14/17 15:40 mecA-Methicil Res Gene DETECTED (Not Detect) A 11/14/17 15:40 - Microbiology Findings Microbiology Findings: Microbiology, Last 48 Hours 11/17/17 22:10 Blood Culture - Preliminary Peripheral Venipuncture Culture is incubating and being continuously monitored for growth. Final report to follow. 11/12/17 16:11 Blood Culture - Final Peripheral Venipuncture No growth. Final report. 11/12/17 16:00 Sputum Culture - Final Sputum 11/14/17 15:40 Blood Culture - Preliminary Central Venous Catheter Gram Positive Cocci - Clinical Findings Intake & Output: Intake & Output 11/17/17 11/17/17 11/17/17 07:59 15:59 23:59 Intake Total 300 / 300 900 / 900 Output Total 850 / 850 1000 / 1000 Balance 300 / 300 -850 / -850 -100 / -100 - Attending Attestation I saw and evaluated this patient and my medical decision-making was reviewed with the Resident Physician. I agree with the documented findings, disposition and treatment plan as described except to the extent set forth below. We independently had [id number] contact with the patient I spent 33 minutes of Critical Care time with this patient. It involved decision making of high complexity to assess, manipulate, and support vital organ system failure and/or to prevent further life threatening deterioration of the patient's condition. The time involved in the performance of separately reportable procedures was not counted toward critical care time. Patient seen and examined at bedside Labs, radiology, chart personally reviewed. Management was reviewed during multidisciplinary critical care rounds. LEGAL RECORDS MANAGER:Patient is awake following on and off commands Pulm: Patient has component of acute on chronic diastolic heart failure with COPD started diuresing as tolerated , to continue bronchodilators and steroids. Low- tidal volume strategy . (FiO2 as possible to keep SPO2 around 90-92% liberate PEEP after FiO2 has come down. 11/15 Patient has oxygenation worsened , CXR worsening pulmonary edema and possible pneumonia since patient was spiking fever attempted diagnostic tap i myself did US of Lung which showed more consolidated lung than pleural effusion had a 1-2 cm layer pleural fluid was there IR was consulted even with their curvilinear probe there was no safe pocket was indentified . Will hold off diuresis for now . CT chest showed stable bilateral pleural effusion with worsening pulmonary consolidation changed to vancomycin to Linezolid 11/16 Patient V/Q mismatch worsened most likely due to worsening pulmonary edema and pneumonia and diabetes management this patient is in sepsis might require vasopressor support. titrated tidal volume and PEEP therapy Cards: And hemodynamically stable echo showed EF of 55% acute on chronic diastolic heart failure. Will hold off diurertics looks like patient might develop septic shock 11/16 patient's blood pressure is borderline most likely due to sepsis complicated by diastolic heart failure expect he might need persists will hold off diuretics. 11/17 To continue low tidal volume strategy , adjusted FIO2 and PEEP Patient has acceptable oxygenation and ventilation . FEN-GI: As per dietary recommendations.will evaluate with RUQ ultrasound to make sure any infectious process going on since patient is having the high fevers 11/16 will advance as tolerated. We will follow dietary recs 11/17 To follow with dietary recs . Renal: Labs and output reviewed ID: Patient was spiking fever repeated the CT scan showed that he has worsening pneumonia will change Vancomycin and Linezolid to continue other antibiotics.. 11/17 Culture growing MR staphylococcus no aureus species Heme/Onc:To continue DVT prophylaxis Endo: Glucose Monitored Integ/MSK: Skin Care per routine ICU Nursing Protocol to prevent ulcers. Lines: All lines examined without evidence of infection : Dispo: Critically ill Long discussion with sister decided to change code status DNR CCA -DNI
[2017-11-17] MEDS: FentaNYL (PF) 1,000 MCG in 0.9 % Sodium Chloride 80 ML IVC SCH ×2 (14:41→20:57)
--- NOTE | 2017-11-17 14:49 | Palliative - Consult Note ---
Date of Encounter: 11/17/17 Time of Encounter: 13:00 - Assessment and Plan (1) Schizophrenia Current Visit: No Status: Chronic Assessment and plan: Patient currently receiving Propofol for anxiety. Qualifiers: Schizophrenia type: unspecified Qualified Code(s): F20.9 - Schizophrenia, unspecified (2) Atrial fibrillation with rapid ventricular response Current Visit: No Status: Acute Assessment and plan: Patient receiving amiodarone for Atrial fibrillation. Irregular heart rhythm remains present. (3) Acute on chronic respiratory failure with hypercapnia Current Visit: Yes Status: Acute Assessment and plan: Pulmonary/ICU team managing. Requiring ventilator support. Continue ventilator at this time. (4) COPD (chronic obstructive pulmonary disease) Current Visit: Yes Status: Acute Assessment and plan: Oxygen saturation 93% during assessment on Ventilator. Continue ventilator support. Qualifiers: COPD type: unspecified COPD Qualified Code(s): J44.9 - Chronic obstructive pulmonary disease, unspecified (5) Encephalopathy Current Visit: Yes Status: Acute Assessment and plan: Patient responsive to some painful stimulation. Received report from patient's sister that patient had been confused since admission to [facility]. (6) Counseling regarding advanced directives and goals of care Current Visit: Yes Status: Acute Assessment and plan: Conducted family meeting with patient's sister Dr. Randal Jauregui, and Joslyn PEREIRA. Patient's sister is MPOA. Reports this is not how patient would like to live. Expressed desire to not perform CPR if patient's heart would stop. Expressed desire to continue current treatment plan until Monday at which family can be present to liberate patient from machines and transition to comfort care. Changed CODE STATUS to DNR CCA to reflect MPOA's decision to not continue aggressive treatment should patient's heart stop. Emotional support provided to patient's sister during this emotional time, as patient's sister just live through similar scenario with her almost exactly two years ago. Patient's sister to notify family of change in goals of care, requested reinforcement from ICU team for continued explanation of current clinical picture with family upon their arrival. Informed Dr. Tee of need for continued symptoms management. Palliative care not on coverage this weekend, will follow up on Monday. Recommend to utilize Fentanyl drip and Ativan IVP PRN for patients comfort at withdrawal of care. Palliative will follow up on Monday. Palliative-CN HPI - Data of Consult Patient: new to practice Consult date: 11/17/17 Requesting Physician: David Skaggs MD [facility] Provider[facility] - Consult Narrative Palliative Care/Comfort Measures: Palliative care Reason for consult: Goals of care discussion History of present illness: Mr. Sykes is a 62 year old male Arrived to [place] on 11/12/17 as transfer from [place] for respiratory failure, which had been admitted to [facility] on 11/06/17. Patient was intubated and admitted to ICU. Admitted for acute on chronic respiratory failure with hypercapnia, CHF, COPD, Encephalopathy, Chronic a-fib and schizophrenia. PMH: Aortic aneurysm, Atrial fibrillation, COPD, Hyperlipidemia, HTN, Tuberculosis, Hepatitis C, Anxiety, Bipolar, Depression, PTSD, and Schizophrenia. Initial Chest xray verified ET Tube placement. ECG showing Atrial fib with RVR and nonspecific T-wave abnormality. CT Scan Head without contrast showed: Unchanged appearance of the brain without acute intracranial process identified and Small amount of fluid in the left maxillary sinus. CT of Abdomen and pelvis without contrast and CT of chest without contrast: Small pleural effusions and dependent opacities with the amount of airspace disease is greater than expected for relaxation atelectasis, therefore an inflammatory process or aspiration should be considered in the appropriate clinical setting; the gallbladder is distended with sludge or noncalcified stonesl; No CT evidence for acute cholecystitis or biliary dilatation; Small volume ascites; Anasarca; Moderate stool burden, and Diverticulosis. Central line placement occurred. Repeat chest xray Hazy alveolar density is demonstrated at both lung bases with bilateral pleural effusion evident and pneumonia. Patient began spiking fevers on 11/13/17, Tylenol and Antibiotics were already in place. Ultrasound performed by IR, found no pleural effusion. Repeat CT of chest without contrast showing worsening pneumonia and no change in pleural effusions bilaterally. Patient required addition of Lopressor and Cardizem. Ultrasound performed showing Cholelithiasis without evidence of cholecystitis. Repeat chest xray showing increased cardiac size and suggests CHF with bilateral lung base consolidation with pleural effusions. Fevers subsided 11/16/17. Patient resting quietly upon arrival for assessment. Patient remains intubated and sedated in ICU. Patients sister (FEDE Jauregui, ) present at bedside. Patients nurse present. Planned family meeting to discuss goals of care; Palliative care consulted for discussion. Patient was in [employer] and per Sister has service connection disability. CC: David Skaggs MD Past Med Surg Social Fam HX - Past Medical History Medical history: aortic aneurysm, atrial fibrillation, COPD, hyperlipidemia, hypertension, other Additional medical history: tuberculosis, hepatitis C Psychiatric history: anxiety, bipolar, depression, PTSD, schizophrenia, other - Past Surgical History Surgical History: orthopedic, other Additional surgical history: Femur surgery - Social History Smoking Status: Current every day smoker Smokeless Tobacco Status: No Alcohol use: none Drug use: none - Family History Mother Living Status: Father Adopted: No Family Member Ethnicity: Non- Living Status: Hx Family Cardiac Disorders: No Hx Family Respiratory Disorders: No Hx Family Cancer: Yes Hx Family GI Disorders: No Hx Family Endocrine Disorder: No Medications and Allergies Acetaminophen [Tylenol] 975 mg PO BID PRN 11/12/17 [History] Acetaminophen [Tylenol] 975 mg PO HS 11/12/17 [History] Ammonium Lactate [Amlactin] 1 appl TP DAILY 11/12/17 [History] Apixaban [Eliquis] 5 mg PO BID 11/12/17 [History] Atorvastatin Calcium [Lipitor] 80 mg PO DAILY 11/12/17 [History] Budesonide/Formoterol 160/4.5 [Symbicort 160/4.5] 2 puff IH BIDR 11/12/17 [ History] Buprenorphine HCl [Subutex] 8 mg SL DAILY 11/12/17 [History] Chlorhexidine Rinse 15 ml MM BID 11/12/17 [History] Diltiazem HCl [Diltiazem 24Hr Cd] 240 mg PO DAILY 11/12/17 [History] Divalproex (24 HR) [Depakote ER (24 HR)] 1,500 mg PO DAILY 11/12/17 [History] Fluphenazine [Prolixin] 7.5 mg PO TID 11/12/17 [History] Ipratropium/Albuterol Neb [Duoneb] 3 ml IH Q4HR PRN 11/12/17 [History] Ipratropium/Albuterol Sulfate [Combivent Respimat Inhal [place]] 1 puff IH BID [History] Lactulose 30 gm PO TID 11/12/17 [History] Losartan [Cozaar] 25 mg PO DAILY 11/12/17 [History] Mag Hydrox/Al Hydrox/Simeth [Maalox] 15 ml PO Q6HR PRN 11/12/17 [History] Magnesium Citrate [Citroma] 296 ml PO DAILY PRN 11/12/17 [History] Magnesium Oxide [Magnesium] 400 mg PO DAILY 11/12/17 [History] Metoprolol [Lopressor] 75 mg PO BID 11/12/17 [History] Pantoprazole Sodium [Protonix] 20 mg PO BID 11/12/17 [History] Potassium Chloride [K-Tab ER] 20 meq PO DAILY 11/12/17 [History] Tamsulosin [Flomax] 0.4 mg PO HS 11/12/17 [History] Torsemide [Demadex] 40 mg PO DAILY 11/12/17 [History] hydrOXYzine HCl [Hydroxyzine HCl] 50 mg PO HS PRN 11/12/17 [History] 3 Allergy/AdvReac Type Severity Reaction Status Date / Time No Known Allergies Allergy Verified 03/25/17 23:59 ROS unobtainable: due to endotracheal tube Palliative Care-Exam - Constitutional Vitals: Temp Pulse Resp BP Pulse Ox 98.8 F 113 16 93/73 93 11/17/17 12:00 11/17/17 13:00 11/17/17 13:00 11/17/17 13:00 11/17/17 13:00 General appearance: Present: cooperative, morbidly obese, no acute distress - Head Head Exam: Present: atraumatic, normal inspection - Expanded Head Exam Head exam expanded IM: Absent: general tenderness - Eye Eye exam: Present: normal appearance, PERRL. Absent: EOMI, periorbital swelling , periorbital tenderness Pupils: Present: normal accommodation - ENT ENT exam: Present: mucous membranes dry, normal oropharynx - Expanded ENT Exam Mouth Exam: Present: normal external inspection. Absent: drooling - Neck Neck exam: Present: normal inspection - Expanded Neck Exam Neck exam: Absent: anterior neck swelling, tracheal deviation - Respiratory Respiratory exam: Present: decreased breath sounds, rhonchi, wheezes. Absent: accessory muscle use - Cardiovascular Cardiovascular exam: Present: irregular rhythm - Expanded Cardiovascular Exam Peripheral pulses: 2+: Radial (L), Radial (R), Posterior Tibialis (L), Posterior Tibialis (R), Dorsalis Pedis (L) PM, Dorsalis Pedis (R) PM - GI/Abdominal Exam GI/Abdominal exam: Present: diminished bowel sounds, firm. Absent: tenderness - Expanded GI/Abdominal Exam GI/Abdominal exam: Present: ascites - Rectal Rectal Exam: Present: deferred - Catheter Type: Urethral (Live) - Extremities Exam Extremities exam: Present: pedal edema - Neurological Exam Neurological exam: Present: altered - Expanded Neurological Exam Coma Scale Eye Opening: To Pain Coma Scale Motor Response: Withdraws to Pain Coma Scale Verbal Response: None Coma Scale Total: 7 - Psychiatric Psychiatric exam: Present: flat affect - Skin Skin exam: Present: dry, intact, warm Internal Medicine - CN: Reslt - Labs CBC & Chem 7: 11/17/17 06:14 11/17/17 06:14 Labs: Short CBC 11/17/17 Range/Units 06:14 WBC 13.9 H (4.3-11.1) K/mcL Hgb 11.4 L (12.9-16.9) g/dL Hct 37.3 L (37.5-50.1) % Plt Count 169 D (140-400) K/mcL Neutrophils # 9.0 H (1.6-8.9) K/mcL BMP 11/17/17 06:14 Sodium 137 Potassium 4.3 Chloride 100 Carbon Dioxide 33 H BUN 26 H Creatinine 0.97 Glucose 132 H Calcium 8.7 - ABG Interpretation ABG results: ABG ABG pH 7.35 pH Units (7.32-7.45) 11/17/17 05:08 ABG pCO2 65 mmHg (35-45) H 11/17/17 05:08 ABG pO2 88 mmHg (85-104) 11/17/17 05:08 ABG O2 Saturation 96 % (95-98) 11/17/17 05:08 PT/INR, D-dimer PT 18.7 Seconds (9.4-12.1) H 11/15/17 08:48 Consult Discharge Plan - Plan [facility]errals: [facility] [Primary Care Provider] - Palliative Quality Palliative Quality: Screen for Code Status: Yes, Screen for Goals of Care: Yes, Screen for Pain: NA, If Pain Regimen Started, Initiate Bowel Regimen: NA, Screen for Nausea/Vomitting: NA Code Status: 11/12/17 14:50 Resuscitation Status: Active [RES] Routine Comment: Resuscitation Status: Full Code 11/17/17 14:09 DNR [Resuscitation Status: Active] [RES] Routine Comment: Resuscitation Status: DNR-Comfort Care-Arrest
[2017-11-17] MEDS: Phenylephrine 10 MG in D5% in Water 250 ML IVC SCH (20:53)
[2017-11-18] MEDS: Insulin LISPRO 300 UNITS/3 ML VIAL SQ SCH ×6 (00:08→20:15)
[2017-11-18] MEDS: Ipratropium/Albuterol Neb 3 ML IH SCH ×6 (03:39→23:22)
[2017-11-18] MEDS: FentaNYL (PF) 1,000 MCG in 0.9 % Sodium Chloride 80 ML IVC SCH ×3 (04:06→19:01)
[2017-11-18] MEDS: Lacri-Lube 3.5 GM TUBE BOTH EYES SCH ×5 (04:08→20:14)
[2017-11-18 04:33] LABS: ABG Base Excess 8 mEq/L (-2 to 3); ABG HCO3 33 mEq/L (21-27); ABG Oxygen Saturation 96 % (95-98); ABG PCO2 47 mmHg (35-45); ABG PH 7.46 pH Units (7.32-7.45); ABG PO2 82 mmHg (85-104); ABG TCO2 34 mEq/L (20-26); Blood Gas Modality VC; Blood Gas Respiration Rate 16; Blood Gas VT 470 cc
[2017-11-18 05:01] LABS: Basophils % 0.2 %; Immature Granulocytes % 0.8 % (0-4); Mean Corpuscular Hemoglobin 25.4 pg (28.0-33.3)
[2017-11-18 05:03] LABS: Eosinophils # 0.3 K/mcL (0.0-0.6); Eosinophils % 2.1 %; Hemoglobin 10.4 g/dL (12.9-16.9); Immature Platelets 17.5 % (1.1-6.1); Lymphocytes # 1.8 K/mcL (0.6-4.6); Lymphocytes % 13.9 %; Mean Corpuscular HGB Conc 31.5 g/dL (31.6-35.5); Mean Corpuscular Volume 80.5 fL (83.0-100.0); Monocytes # 2.4 K/mcL (0.0-1.3); Monocytes % 18.3 %; Neutrophils # 8.4 K/mcL (1.6-8.9); Platelet Count 163 K/mcL (140-400); Red Cell Distribution Width 19.9 % (11.5-14.5); Segmented Neutrophils % 64.7 %
[2017-11-18 05:06] LABS: Magnesium 1.8 mg/dL (1.6-2.6)
[2017-11-18 05:07] LABS: BUN/Creatinine Ratio 30 (6-26); Blood Urea Nitrogen 26 mg/dL (8-23); Calcium 8.6 mg/dL (8.6-10.3); Carbon Dioxide 34 mEq/L (23-29); Chloride 99 mEq/L (98-107); Glucose 137 mg/dL (70-105); Osmolality,Calculated 289 (280-300); Potassium 4.1 mEq/L (3.5-5.1); Sodium 136 mEq/L (136-145); eGFR For African Americans > 60 (> 60); eGFR For Non-African Americans > 60 (> 60)
[2017-11-18] MEDS: Amiodarone Premix 360 MG/200 ML BAG IVC SCH ×4 (05:12→23:02)
[2017-11-18] MEDS: *HR* Heparin 5,000 UNIT/ML VIAL SQ SCH ×2 (05:15→17:24)
[2017-11-18 06:47] LABS: VBG Ionized Calcium 1.05 mmol/L (1.15-1.35)
[2017-11-18] MEDS: Pantoprazole 40 MG VIAL IVP SCH (07:44)
[2017-11-18] MEDS: Lactulose Oral Soln 20 GM/30 ML UDC PO SCH ×2 (07:44→20:14)
[2017-11-18] MEDS: Piperacillin/Tazobactam 3.375 GM in 0.9 % Sodium Chloride Mini Bag 100 ML IVPB SCH ×2 (07:44→15:16)
[2017-11-18] MEDS: Chlorhexidine Rinse 15 ML MOUTHWASH MM SCH ×2 (07:44→20:14)
[2017-11-18] MEDS ORDERED: Furosemide 20 MG/2 ML VIAL IVP ONE (09:30)
[2017-11-18] MEDS ORDERED: Furosemide 40 MG/4 ML VIAL IVP ONE ×2 (09:33→18:00)
[2017-11-18] MEDS: Norepinephrine 4 MG in D5% in Water 250 ML IVC SCH (11:17)
--- NOTE | 2017-11-18 12:51 | Pulmonology Progress Note ---
<[place] colon N - Last Filed: 11/18/17 15:24> Date of Encounter: 11/18/17 Time of Encounter: 12:48 Assessment and Plan (1) Acute on chronic respiratory failure with hypercapnia Current Visit: Yes Status: Acute Patient was [facility] the [place] [facility] on 11/06/2017 with respiratory failure. Transferred to [facility] on 11/12/2017 for higher level of care. Intubated and admitted to the ICU Current condition is most likely secondary to COPD, complicated by pneumonia. CT scan revealed a multifocal pulmonary consolidations that are worsening. Serology positive for MRSA, switched vancomycin to linezolid. - Labs continue to improve however blood cell count is still slightly elevated at 13. -Patient is still requiring ventilator support -Cultures grew staph epidermidis, this may be a contaminant we will repeat blood cultures. (2) COPD (chronic obstructive pulmonary disease) Current Visit: Yes Status: [facility] patient has a history of COPD, and may not be compliant with his at-home treatment Patient has been intubated for respiratory support, he will receive DuoNeb therapy continue duonebs and antibiotics Qualifiers: COPD type: unspecified COPD Qualified Code(s): J44.9 - Chronic obstructive pulmonary disease, unspecified (3) Encephalopathy Current Visit: Yes Status: Acute Per the [place] records patient has been encephalopathic/delirious during his stay Currently he opens his eyes and winces to pain however he is not oriented to his surroundings or himself. (4) Chronic a-fib Current Visit: No Status: Acute Patient has a history of A. fib Per the [place] records patient is on apixaban and diltiazem. He has remained tachycardic with heart rate up to 160 He has been on scheduled Lopressor, Cardizem, and amiodarone drip. Patient has not improved, remains tachycardic. (5) Schizophrenia Current Visit: No Status: Chronic Currently holding psych meds as they may be contributing to patient's elevated temperature readings Qualifiers: Schizophrenia type: unspecified Qualified Code(s): F20.9 - Schizophrenia, unspecified Subjective Principal diagnosis: COPD, respiratory failure, hypoxia, pneumonia Interval history: Patient seen and examined today at bedside. His status remains unchanged from the previous few days. His white blood cell count has decreased to 13 and blood cultures are growing staph epidermidis. This may be contamination, repeat blood cultures pending. Meet with family tomorrow to discuss plan for future goals of care or converting to comfort care. Objective PUL Vital signs: Last Vital Signs Temp 97.9 F 11/18/17 12:17 Pulse 117 11/18/17 11:20 Resp 17 11/18/17 11:07 BP 95/65 11/18/17 11:07 Pulse Ox 93 11/18/17 11:07 General appearance: other (Intubated,) Auscultation: bilateral: rhonchi Cardiovascular: other (Tachycardic) Gastrointestinal: normoactive bowel sounds Integumentary: other (Wound left lower extremity) Extremities: edema Ventilator Settings Ventilator Settings: Ventilator Settings, Last 8 Hours Ventilator Tidal Volume 470 Setting Ventilator Tidal Volume 470 Setting Ventilator Tidal Volume 470 Setting Ventilator Tidal Volume 470 Setting Ventilator Tidal Volume 470 Setting Ventilator Tidal Volume 470 Setting Ventilator Tidal Volume 470 Setting Ventilator Tidal Volume 470 Setting Ventilator Tidal Volume 470 Setting Ventilator Tidal Volume 470 Setting Ventilator Tidal Volume 470 Setting Ventilator Respiratory Rate 16 Setting Ventilator Respiratory Rate 16 Setting Ventilator Respiratory Rate 16 Setting Ventilator Respiratory Rate 16 Setting Ventilator Respiratory Rate 16 Setting Ventilator Respiratory Rate 16 Setting Ventilator Respiratory Rate 16 Setting Ventilator Respiratory Rate 16 Setting Ventilator Respiratory Rate 16 Setting Ventilator Respiratory Rate 16 Setting Ventilator Respiratory Rate 16 Setting Actual Respiratory Rate 17 Actual Respiratory Rate 19 Actual Respiratory Rate 18 Actual Respiratory Rate 19 Actual Respiratory Rate 16 Actual Respiratory Rate 19 Actual Respiratory Rate 19 Actual Respiratory Rate 19 Actual Respiratory Rate 19 Actual Respiratory Rate 21 Actual Respiratory Rate 21 Positive End Expiratory 14 Pressure Positive End Expiratory 14 Pressure Positive End Expiratory 14 Pressure Positive End Expiratory 14 Pressure Positive End Expiratory 14 Pressure Positive End Expiratory 14 Pressure Positive End Expiratory 14 Pressure Positive End Expiratory 14 Pressure Positive End Expiratory 14 Pressure Positive End Expiratory 14 Pressure Positive End Expiratory 14 Pressure Peak Inspiratory Airway 25 Pressure Peak Inspiratory Airway 26 Pressure Peak Inspiratory Airway 23 Pressure Peak Inspiratory Airway 26 Pressure Peak Inspiratory Airway 27 Pressure Peak Inspiratory Airway 27 Pressure Peak Inspiratory Airway 27 Pressure Peak Inspiratory Airway 28 Pressure Peak Inspiratory Airway 26 Pressure Peak Inspiratory Airway 23 Pressure Peak Inspiratory Airway 22 Pressure Results - Laboratory Findings CBC and BMP: 11/18/17 04:30 11/18/17 04:30 ABG ABG pH 7.46 pH Units (7.32-7.45) H 11/18/17 04:29 ABG pCO2 47 mmHg (35-45) H 11/18/17 04:29 ABG pO2 82 mmHg (85-104) L 11/18/17 04:29 ABG O2 Saturation 96 % (95-98) 11/18/17 04:29 PT/INR, D-dimer PT 18.7 Seconds (9.4-12.1) H 11/15/17 08:48 Abnormal lab findings: Abnormal lab results WBC 13.0 K/mcL (4.3-11.1) H 11/18/17 04:30 RBC 4.10 M/mcL (4.19-5.50) L 11/18/17 04:30 Hgb 10.4 g/dL (12.9-16.9) L 11/18/17 04:30 Hct 33.0 % (37.5-50.1) L 11/18/17 04:30 MCV 80.5 fL (83.0-100.0) L 11/18/17 04:30 MCH 25.4 pg (28.0-33.3) L 11/18/17 04:30 MCHC 31.5 g/dL (31.6-35.5) L 11/18/17 04:30 RDW 19.9 % (11.5-14.5) H 11/18/17 04:30 Monocytes # 2.4 K/mcL (0.0-1.3) H 11/18/17 04:30 Nucleated RBCs/100 WBC 0.3 /100 WBC (0) H 11/12/17 15:00 Platelet Estimate Decreased (Normal) L 11/16/17 02:56 Immature Plt Fraction 17.5 % (1.1-6.1) H 11/18/17 04:30 Polychromasia 1+ (Not Present) A 11/16/17 02:56 Anisocytosis 1+ (Not Present) A 11/16/17 02:56 Microcytosis Present (Not Present) A 11/16/17 02:56 [place] Cells 1+ (Not Present) A 11/16/17 02:56 PT 18.7 Seconds (9.4-12.1) H 11/15/17 08:48 ABG pH 7.46 pH Units (7.32-7.45) H 11/18/17 04:29 ABG pCO2 47 mmHg (35-45) H 11/18/17 04:29 ABG pO2 82 mmHg (85-104) L 11/18/17 04:29 ABG HCO3 33 mEq/L (21-27) H 11/18/17 04:29 ABG Total CO2 34 mEq/L (20-26) H 11/18/17 04:29 ABG Base Excess 8 mEq/L (-2 to 3) H 11/18/17 04:29 Carbon Dioxide 34 mEq/L (23-29) H 11/18/17 04:30 BUN 26 mg/dL (8-23) H 11/18/17 04:30 BUN/Creatinine Ratio 30 (6-26) H 11/18/17 04:30 Glucose 137 mg/dL (70-105) H 11/18/17 04:30 POC Glucose 121 mg/dL (70-99) H 11/18/17 04:02 Venous Ioniz Calcium 1.05 mmol/L (1.15-1.35) L 11/18/17 06:45 Creatine Kinase 273 Units/L (30-223) H 11/14/17 17:03 B-Natriuretic Peptide 375 pg/mL (Less than 100) H 11/15/17 08:48 Serum Total Protein 6.0 g/dL (6.4-8.9) L 11/14/17 13:22 Albumin 2.7 g/dL (3.5-5.7) L 11/14/17 13:22 Albumin/Globulin Ratio 0.8 (1.1-2.2) L 11/14/17 13:22 Urine Protein 30 mg/dL (Neg-Trace) H 11/12/17 14:59 Urine Microscopic WBC 3-5 per hpf (0-3) H 11/12/17 14:59 Ur Squamous Epith Cells Many per lpf (None-Few) H 11/12/17 14:59 Nasal Screen MRSA (PCR) Positive (Negative) A 11/13/17 11:05 Staphylococcus sp PCR DETECTED (Not Detect) A 11/14/17 15:40 mecA-Methicil Res Gene DETECTED (Not Detect) A 11/14/17 15:40 - Microbiology Findings Microbiology Findings: Microbiology, Last 48 Hours 11/14/17 15:40 Blood Culture - Final Central Venous Catheter Staphylococcus epidermidis 11/17/17 22:45 Blood Culture - Preliminary Central Venous Catheter Culture is incubating and being continuously monitored for growth. Final report to follow. 11/17/17 22:10 Blood Culture - Preliminary Peripheral Venipuncture Culture is incubating and being continuously monitored for growth. Final report to follow. 11/12/17 16:11 Blood Culture - Final Peripheral Venipuncture No growth. Final report. 11/12/17 16:00 Sputum Culture - Final Sputum - Clinical Findings Intake & Output: Intake & Output 11/17/17 11/18/17 11/18/17 23:59 07:59 15:59 Intake Total 1240 / 1240 1033 / 1033 825 / 825 Output Total 1000 / 1000 450 / 450 700 / 700 Balance 240 / 240 583 / 583 125 / 125 Weight 122.4 kg - VTE Documentation of Mechanical Device: Intermittent pneumatic compression device Consult Discharge Plan - Plan [facility]Primary [facility] Provider[facility] - <Daphne Arcos S - Last Filed: 11/18/17 23:59> Date of Encounter: 11/18/17 Objective PUL Vital signs: Last Vital Signs Temp 98.5 F 11/18/17 20:00 Pulse 113 11/18/17 23:00 Resp 18 11/18/17 23:23 BP 101/77 11/18/17 23:23 Pulse Ox 93 11/18/17 23:23 Ventilator Settings Ventilator Settings: Ventilator Settings, Last 8 Hours Ventilator Tidal Volume 470 Setting Ventilator Tidal Volume 470 Setting Ventilator Tidal Volume 470 Setting Ventilator Tidal Volume 470 Setting Ventilator Tidal Volume 470 Setting Ventilator Tidal Volume 470 Setting Ventilator Tidal Volume 470 Setting Ventilator Tidal Volume 470 Setting Ventilator Tidal Volume 470 Setting Ventilator Tidal Volume 470 Setting Ventilator Tidal Volume 470 Setting Ventilator Tidal Volume 470 Setting Ventilator Respiratory Rate 16 Setting Ventilator Respiratory Rate 16 Setting Ventilator Respiratory Rate 16 Setting Ventilator Respiratory Rate 16 Setting Ventilator Respiratory Rate 16 Setting Ventilator Respiratory Rate 16 Setting Ventilator Respiratory Rate 16 Setting Ventilator Respiratory Rate 16 Setting Ventilator Respiratory Rate 16 Setting Ventilator Respiratory Rate 16 Setting Ventilator Respiratory Rate 16 Setting Ventilator Respiratory Rate 16 Setting Actual Respiratory Rate 18 Actual Respiratory Rate 19 Actual Respiratory Rate 18 Actual Respiratory Rate 20 Actual Respiratory Rate 18 Actual Respiratory Rate 20 Actual Respiratory Rate 18 Actual Respiratory Rate 20 Actual Respiratory Rate 19 Actual Respiratory Rate 20 Actual Respiratory Rate 18 Actual Respiratory Rate 18 Positive End Expiratory 14 Pressure Positive End Expiratory 14 Pressure Positive End Expiratory 14 Pressure Positive End Expiratory 14 Pressure Positive End Expiratory 14 Pressure Positive End Expiratory 14 Pressure Positive End Expiratory 14 Pressure Positive End Expiratory 14 Pressure Positive End Expiratory 14 Pressure Positive End Expiratory 14 Pressure Positive End Expiratory 14 Pressure Positive End Expiratory 14 Pressure Peak Inspiratory Airway 22 Pressure Peak Inspiratory Airway 23 Pressure Peak Inspiratory Airway 21 Pressure Peak Inspiratory Airway 20 Pressure Peak Inspiratory Airway 20 Pressure Peak Inspiratory Airway 20 Pressure Peak Inspiratory Airway 29 Pressure Peak Inspiratory Airway 21 Pressure Peak Inspiratory Airway 21 Pressure Peak Inspiratory Airway 21 Pressure Peak Inspiratory Airway 22 Pressure Peak Inspiratory Airway 21 Pressure Results - Laboratory Findings CBC and BMP: 11/18/17 04:30 11/18/17 04:30 ABG ABG pH 7.46 pH Units (7.32-7.45) H 11/18/17 04:29 ABG pCO2 47 mmHg (35-45) H 11/18/17 04:29 ABG pO2 82 mmHg (85-104) L 11/18/17 04:29 ABG O2 Saturation 96 % (95-98) 11/18/17 04:29 PT/INR, D-dimer PT 18.7 Seconds (9.4-12.1) H 11/15/17 08:48 Abnormal lab findings: Abnormal lab results WBC 13.0 K/mcL (4.3-11.1) H 11/18/17 04:30 RBC 4.10 M/mcL (4.19-5.50) L 11/18/17 04:30 Hgb 10.4 g/dL (12.9-16.9) L 11/18/17 04:30 Hct 33.0 % (37.5-50.1) L 11/18/17 04:30 MCV 80.5 fL (83.0-100.0) L 11/18/17 04:30 MCH 25.4 pg (28.0-33.3) L 11/18/17 04:30 MCHC 31.5 g/dL (31.6-35.5) L 11/18/17 04:30 RDW 19.9 % (11.5-14.5) H 11/18/17 04:30 Monocytes # 2.4 K/mcL (0.0-1.3) H 11/18/17 04:30 Nucleated RBCs/100 WBC 0.3 /100 WBC (0) H 11/12/17 15:00 Platelet Estimate Decreased (Normal) L 11/16/17 02:56 Immature Plt Fraction 17.5 % (1.1-6.1) H 11/18/17 04:30 Polychromasia 1+ (Not Present) A 11/16/17 02:56 Anisocytosis 1+ (Not Present) A 11/16/17 02:56 Microcytosis Present (Not Present) A 11/16/17 02:56 [place] Cells 1+ (Not Present) A 11/16/17 02:56 PT 18.7 Seconds (9.4-12.1) H 11/15/17 08:48 ABG pH 7.46 pH Units (7.32-7.45) H 11/18/17 04:29 ABG pCO2 47 mmHg (35-45) H 11/18/17 04:29 ABG pO2 82 mmHg (85-104) L 11/18/17 04:29 ABG HCO3 33 mEq/L (21-27) H 11/18/17 04:29 ABG Total CO2 34 mEq/L (20-26) H 11/18/17 04:29 ABG Base Excess 8 mEq/L (-2 to 3) H 11/18/17 04:29 Carbon Dioxide 34 mEq/L (23-29) H 11/18/17 04:30 BUN 26 mg/dL (8-23) H 11/18/17 04:30 BUN/Creatinine Ratio 30 (6-26) H 11/18/17 04:30 Glucose 137 mg/dL (70-105) H 11/18/17 04:30 POC Glucose 121 mg/dL (70-99) H 11/18/17 04:02 Venous Ioniz Calcium 1.07 mmol/L (1.15-1.35) L 11/18/17 15:40 Creatine Kinase 273 Units/L (30-223) H 11/14/17 17:03 B-Natriuretic Peptide 375 pg/mL (Less than 100) H 11/15/17 08:48 Serum Total Protein 6.0 g/dL (6.4-8.9) L 11/14/17 13:22 Albumin 2.7 g/dL (3.5-5.7) L 11/14/17 13:22 Albumin/Globulin Ratio 0.8 (1.1-2.2) L 11/14/17 13:22 Urine Protein 30 mg/dL (Neg-Trace) H 11/12/17 14:59 Urine Microscopic WBC 3-5 per hpf (0-3) H 11/12/17 14:59 Ur Squamous Epith Cells Many per lpf (None-Few) H 11/12/17 14:59 Nasal Screen MRSA (PCR) Positive (Negative) A 11/13/17 11:05 Staphylococcus sp PCR DETECTED (Not Detect) A 11/14/17 15:40 mecA-Methicil Res Gene DETECTED (Not Detect) A 11/14/17 15:40 - Microbiology Findings Microbiology Findings: Microbiology, Last 48 Hours 11/14/17 15:40 Blood Culture - Final Central Venous Catheter Staphylococcus epidermidis 11/17/17 22:45 Blood Culture - Preliminary Central Venous Catheter Culture is incubating and being continuously monitored for growth. Final report to follow. 11/17/17 22:10 Blood Culture - Preliminary Peripheral Venipuncture Culture is incubating and being continuously monitored for growth. Final report to follow. 11/12/17 16:11 Blood Culture - Final Peripheral Venipuncture No growth. Final report. - Clinical Findings Intake & Output: Intake & Output 11/18/17 11/18/17 11/18/17 07:59 15:59 23:59 Intake Total 1033 / 1033 1570 / 1570 1074 / 1074 Output Total 450 / 450 1150 / 1150 1000 / 1000 Balance 583 / 583 420 / 420 74 / 74 Weight 122.4 kg - Attending Attestation - Attending Attestation I saw and evaluated this patient and my medical decision-making was reviewed with the Resident Physician. I agree with the documented findings, disposition and treatment plan as described except to the extent set forth below. We independently had [id number] contact with the patient Patient seen and examined at bedside Labs, radiology, chart personally reviewed. Management was reviewed during multidisciplinary critical care rounds. OPERATIONS PROCESSOR:Patient is not following commands today . Pulm: Patient has component of acute on chronic diastolic heart failure with COPD started diuresing as tolerated , to continue bronchodilators and steroids. Low- tidal volume strategy . (FiO2 as possible to keep SPO2 around 90-92% liberate PEEP after FiO2 has come down. 11/15 Patient has oxygenation worsened , CXR worsening pulmonary edema and possible pneumonia since patient was spiking fever attempted diagnostic tap i myself did US of Lung which showed more consolidated lung than pleural effusion had a 1-2 cm layer pleural fluid was there IR was consulted even with their curvilinear probe there was no safe pocket was indentified . Will hold off diuresis for now . CT chest showed stable bilateral pleural effusion with worsening pulmonary consolidation changed to vancomycin to Linezolid 11/16 Patient V/Q mismatch worsened most likely due to worsening pulmonary edema and pneumonia and diabetes management this patient is in sepsis might require vasopressor support. titrated tidal volume and PEEP therapy 11/18 Patient has acceptable oxygenation and ventilation , patient still on high PEEP and FIO2 Cards: And hemodynamically stable echo showed EF of 55% acute on chronic diastolic heart failure. Will hold off diurertics looks like patient might develop septic shock 11/16 patient's blood pressure is borderline most likely due to sepsis complicated by diastolic heart failure expect he might need persists will hold off diuretics. 11/18 Will continue gentle diuresis as long as he is hemodynamically stable . FEN-GI: As per dietary recommendations.will evaluate with RUQ ultrasound to make sure any infectious process going on since patient is having the high fevers 11/16 will advance as tolerated. We will follow dietary recs 11/18 To follow with dietary recs . Renal: Labs and output reviewed ID: Patient was spiking fever repeated the CT scan showed that he has worsening pneumonia will change Vancomycin and Linezolid to continue other antibiotics.. 11/17 Culture growing MR staphylococcus no aureus species 11/18 Culture growing MRSE to continue broad spectrum antibiotics repeat blood cultures Heme/Onc:To continue DVT prophylaxis Endo: Glucose Monitored Integ/MSK: Skin Care per routine ICU Nursing Protocol to prevent ulcers. Lines: All lines examined without evidence of infection : Dispo: Critically ill Long discussion with sister decided to change code status DNR CCA -DNI , family might change to comfort care tomorrow .
[2017-11-18 15:45] LABS: VBG Ionized Calcium 1.07 mmol/L (1.15-1.35)
[2017-11-18 16:00] LABS: Magnesium 1.9 mg/dL (1.6-2.6); Phosphorous 3.2 mg/dL (2.7-4.5)
[2017-11-18] MEDS: Dexmedetomidine HCl 400 MCG/100 ML MLS IVC SCH (20:15)
[2017-11-18] MEDS: Phenylephrine 10 MG in D5% in Water 250 ML IVC SCH (20:15)
[2017-11-19] MEDS: Piperacillin/Tazobactam 3.375 GM in 0.9 % Sodium Chloride Mini Bag 100 ML IVPB SCH ×2 (00:12→08:54)
[2017-11-19] MEDS: Lacri-Lube 3.5 GM TUBE BOTH EYES SCH ×4 (00:17→12:11)
[2017-11-19 00:22] LABS: VBG Ionized Calcium 1.09 mmol/L (1.15-1.35)
[2017-11-19] MEDS: Insulin LISPRO 300 UNITS/3 ML VIAL SQ SCH ×4 (00:23→12:11)
[2017-11-19] MEDS: FentaNYL (PF) 1,000 MCG in 0.9 % Sodium Chloride 80 ML IVC SCH ×4 (00:51→21:31)
[2017-11-19] MEDS: Potassium Chloride 40 MEQ/200 ML BAG IVPB PRN ×2 (01:44→02:48)
[2017-11-19] MEDS: Ipratropium/Albuterol Neb 3 ML IH SCH ×3 (03:26→11:15)
[2017-11-19 05:14] LABS: ABG Base Excess 7 mEq/L (-2 to 3); ABG HCO3 33 mEq/L (21-27); ABG Oxygen Saturation 95 % (95-98); ABG PCO2 51 mmHg (35-45); ABG PH 7.42 pH Units (7.32-7.45); ABG PO2 75 mmHg (85-104); ABG TCO2 35 mEq/L (20-26); Blood Gas Modality VC; Blood Gas Respiration Rate 16; Blood Gas VT 470 cc
[2017-11-19] MEDS: Amiodarone Premix 360 MG/200 ML BAG IVC SCH ×2 (05:23→10:52)
[2017-11-19 05:27] LABS: Basophils % 0.3 %; Eosinophils # 0.3 K/mcL (0.0-0.6); Hematocrit 32.9 % (37.5-50.1); Hemoglobin 10.4 g/dL (12.9-16.9); Immature Granulocytes % 0.6 % (0-4); Lymphocytes # 1.1 K/mcL (0.6-4.6); Lymphocytes % 8.1 %; Mean Corpuscular HGB Conc 31.6 g/dL (31.6-35.5); Mean Corpuscular Hemoglobin 24.6 pg (28.0-33.3); Mean Platelet Volume 12.8 fL (9.4-12.4); Monocytes # 2.2 K/mcL (0.0-1.3); Neutrophils # 10.1 K/mcL (1.6-8.9); Platelet Count 249 K/mcL (140-400); Red Blood Count 4.22 M/mcL (4.19-5.50); Red Cell Distribution Width 19.7 % (11.5-14.5)
[2017-11-19] MEDS: *HR* Heparin 5,000 UNIT/ML VIAL SQ SCH (05:31)
[2017-11-19 06:34] LABS: BUN/Creatinine Ratio 32 (6-26); Blood Urea Nitrogen 23 mg/dL (8-23); Calcium 8.8 mg/dL (8.6-10.3); Carbon Dioxide 32 mEq/L (23-29); Chloride 97 mEq/L (98-107); Glucose 124 mg/dL (70-105); Osmolality,Calculated 285 (280-300); Sodium 135 mEq/L (136-145); eGFR For African Americans > 60 (> 60); eGFR For Non-African Americans > 60 (> 60)
[2017-11-19] MEDS: Chlorhexidine Rinse 15 ML MOUTHWASH MM SCH (08:54)
[2017-11-19] MEDS: Lactulose Oral Soln 20 GM/30 ML UDC PO SCH (08:55)
[2017-11-19] MEDS: Pantoprazole 40 MG VIAL IVP SCH (08:55)
[2017-11-19] MEDS ORDERED: Furosemide 40 MG/4 ML VIAL IVP SCH (09:00)
[2017-11-19] MEDS ORDERED: Divalproex (24 HR) 500 MG TABLET PO SCH (12:15)
--- NOTE | 2017-11-19 12:15 | Pulmonology Progress Note ---
<Heaven Tee - Last Filed: 11/19/17 16:25> Date of Encounter: 11/19/17 Time of Encounter: 12:08 Assessment and Plan (1) Acute on chronic respiratory failure with hypercapnia Current Visit: Yes Status: Acute Patient was admitted to the [facility] on 11/06/2017 with respiratory failure. Transferred to [facility] on 11/12/2017 for higher level of care. Intubated and admitted to the ICU Current condition is most likely secondary to COPD, complicated by pneumonia. CT scan revealed a multifocal pulmonary consolidations that are worsening. Serology positive for MRSA, switched vancomycin to linezolid. - White blood cell count increased to 13.8 today -Patient is still requiring ventilator support -Serology was positive for staph and methicillin resistant gene. -Met with family and discussed patient's current status. It is likely the patient will have a poor outcome after his significant illness. He is still dependent on the ventilator and, after discussing the case with the attending, it is very likely that he will require a tracheostomy in the future. Family discussed amongst themselves and told us that they would not like to see the patient placed on a tracheostomy tube as that would not afford him an adequate quality of life. -The sister, SCOOBY, decided to place the patient on comfort care. (2) COPD (chronic obstructive pulmonary disease) Current Visit: Yes Status: Acute Per [facility] records patient has a history of COPD, and may not be compliant with his at-home treatment Patient has been placed on comfort care and is currently extubated. Qualifiers: COPD type: unspecified COPD Qualified Code(s): J44.9 - Chronic obstructive pulmonary disease, unspecified (3) Encephalopathy Current Visit: Yes Status: Acute He is a little more awake today, he grunts as if to communicate but cannot make out any words at this time. He is currently on comfort care (4) Chronic a-fib Current Visit: No Status: Acute Discontinued amiodarone drip as he is currently comfort care measures only (5) Schizophrenia Current Visit: No Status: Chronic Comfort care measures only Qualifiers: Schizophrenia type: unspecified Qualified Code(s): F20.9 - Schizophrenia, unspecified Subjective Principal diagnosis: COPD, respiratory failure, hypoxia, pneumonia Interval history: Patient seen and examined today at bedside. He has spiked low-grade fevers overnight. His white blood cell count has slightly increased to 13.8. He is currently off pressors, but remains ventilated. Sedation was decreased and the patient appears to be slightly more awake and would follow some commands such as squeezing fingers lightly. Family present today to discuss the patient's progress and discuss comfort care measures. The patient's current status was explained to the family and their questions were answered by the resident physician and nurse. It was explained that the patient's health remains critical, and that he is still ventilator dependent and will likely require a tracheostomy in the near future if care is proceeded. Family discussed amongst themselves and decided that they would not like to see the patient suffer with this illness and do not believe that a tracheostomy tube would afford the patient an adequate quality of life. Family and the patient's sister, his POA, decided to change code status to comfort care. Objective PUL Vital signs: Last Vital Signs Temp 99.4 F 11/19/17 08:08 Pulse 98 11/19/17 11:30 Resp 22 11/19/17 11:30 BP 101/79 11/19/17 11:30 Pulse Ox 96 11/19/17 11:30 General appearance: other (More awake today, follows a few commands. There is increased mucus production and is requiring constant suctioning by nursing.) Auscultation: bilateral: rhonchi Cardiovascular: irregular rhythm, other (Tachycardic) Gastrointestinal: other (Diffusely distended) Integumentary: normal Extremities: edema, anasarca anxious, other (As the patient wakes he is becoming more anxious) Ventilator Settings Ventilator Settings: Ventilator Settings, Last 8 Hours Ventilator Tidal Volume 470 Setting Ventilator Tidal Volume 470 Setting Ventilator Tidal Volume 470 Setting Ventilator Tidal Volume 470 Setting Ventilator Tidal Volume 470 Setting Ventilator Tidal Volume 470 Setting Ventilator Tidal Volume 470 Setting Ventilator Tidal Volume 470 Setting Ventilator Tidal Volume 470 Setting Ventilator Tidal Volume 470 Setting Ventilator Tidal Volume 470 Setting Ventilator Respiratory Rate 16 Setting Ventilator Respiratory Rate 16 Setting Ventilator Respiratory Rate 16 Setting Ventilator Respiratory Rate 16 Setting Ventilator Respiratory Rate 16 Setting Ventilator Respiratory Rate 16 Setting Ventilator Respiratory Rate 16 Setting Ventilator Respiratory Rate 16 Setting Ventilator Respiratory Rate 16 Setting Ventilator Respiratory Rate 16 Setting Ventilator Respiratory Rate 16 Setting Actual Respiratory Rate 22 Actual Respiratory Rate 19 Actual Respiratory Rate 19 Actual Respiratory Rate 20 Actual Respiratory Rate 19 Actual Respiratory Rate 20 Actual Respiratory Rate 19 Actual Respiratory Rate 18 Actual Respiratory Rate 18 Actual Respiratory Rate 19 Positive End Expiratory 12 Pressure Positive End Expiratory 12 Pressure Positive End Expiratory 12 Pressure Positive End Expiratory 12 Pressure Positive End Expiratory 14 Pressure Positive End Expiratory 14 Pressure Positive End Expiratory 14 Pressure Positive End Expiratory 14 Pressure Positive End Expiratory 14 Pressure Positive End Expiratory 14 Pressure Positive End Expiratory 14 Pressure Peak Inspiratory Airway 21 Pressure Peak Inspiratory Airway 31 Pressure Peak Inspiratory Airway 44 Pressure Peak Inspiratory Airway 34 Pressure Peak Inspiratory Airway 40 Pressure Peak Inspiratory Airway 34 Pressure Peak Inspiratory Airway 38 Pressure Peak Inspiratory Airway 40 Pressure Peak Inspiratory Airway 31 Pressure Peak Inspiratory Airway 34 Pressure Results - Laboratory Findings CBC and BMP: 11/19/17 05:04 11/19/17 05:04 ABG ABG pH 7.42 pH Units (7.32-7.45) 11/19/17 05:10 ABG pCO2 51 mmHg (35-45) H 11/19/17 05:10 ABG pO2 75 mmHg (85-104) L 11/19/17 05:10 ABG O2 Saturation 95 % (95-98) 11/19/17 05:10 PT/INR, D-dimer PT 18.7 Seconds (9.4-12.1) H 11/15/17 08:48 Abnormal lab findings: Abnormal lab results WBC 13.8 K/mcL (4.3-11.1) H 11/19/17 05:04 Hgb 10.4 g/dL (12.9-16.9) L 11/19/17 05:04 Hct 32.9 % (37.5-50.1) L 11/19/17 05:04 MCV 78.0 fL (83.0-100.0) L 11/19/17 05:04 MCH 24.6 pg (28.0-33.3) L 11/19/17 05:04 RDW 19.7 % (11.5-14.5) H 11/19/17 05:04 MPV 12.8 fL (9.4-12.4) H 11/19/17 05:04 Neutrophils # 10.1 K/mcL (1.6-8.9) H 11/19/17 05:04 Monocytes # 2.2 K/mcL (0.0-1.3) H 11/19/17 05:04 Nucleated RBCs/100 WBC 0.3 /100 WBC (0) H 11/12/17 15:00 Platelet Estimate Decreased (Normal) L 11/16/17 02:56 Immature Plt Fraction 17.5 % (1.1-6.1) H 11/18/17 04:30 Polychromasia 1+ (Not Present) A 11/16/17 02:56 Anisocytosis 1+ (Not Present) A 11/16/17 02:56 Microcytosis Present (Not Present) A 11/16/17 02:56 [place]la Cells 1+ (Not Present) A 11/16/17 02:56 PT 18.7 Seconds (9.4-12.1) H 11/15/17 08:48 ABG pCO2 51 mmHg (35-45) H 11/19/17 05:10 ABG pO2 75 mmHg (85-104) L 11/19/17 05:10 ABG HCO3 33 mEq/L (21-27) H 11/19/17 05:10 ABG Total CO2 35 mEq/L (20-26) H 11/19/17 05:10 ABG Base Excess 7 mEq/L (-2 to 3) H 11/19/17 05:10 Sodium 135 mEq/L (136-145) L 11/19/17 05:04 Chloride 97 mEq/L (98-107) L 11/19/17 05:04 Carbon Dioxide 32 mEq/L (23-29) H 11/19/17 05:04 BUN/Creatinine Ratio 32 (6-26) H 11/19/17 05:04 Glucose 124 mg/dL (70-105) H 11/19/17 05:04 POC Glucose 120 mg/dL (70-99) H 11/19/17 00:22 Venous Ioniz Calcium 1.10 mmol/L (1.15-1.35) L 11/19/17 09:46 Creatine Kinase 273 Units/L (30-223) H 11/14/17 17:03 B-Natriuretic Peptide 375 pg/mL (Less than 100) H 11/15/17 08:48 Serum Total Protein 6.0 g/dL (6.4-8.9) L 11/14/17 13:22 Albumin 2.7 g/dL (3.5-5.7) L 11/14/17 13:22 Albumin/Globulin Ratio 0.8 (1.1-2.2) L 11/14/17 13:22 Urine Protein 30 mg/dL (Neg-Trace) H 11/12/17 14:59 Urine Microscopic WBC 3-5 per hpf (0-3) H 11/12/17 14:59 Ur Squamous Epith Cells Many per lpf (None-Few) H 11/12/17 14:59 Nasal Screen MRSA (PCR) Positive (Negative) A 11/13/17 11:05 Staphylococcus sp PCR DETECTED (Not Detect) A 11/14/17 15:40 mecA-Methicil Res Gene DETECTED (Not Detect) A 11/14/17 15:40 - Microbiology Findings Microbiology Findings: Microbiology, Last 48 Hours 11/14/17 15:40 Blood Culture - Final Central Venous Catheter Staphylococcus epidermidis 11/17/17 22:45 Blood Culture - Preliminary Central Venous Catheter Culture is incubating and being continuously monitored for growth. Final report to follow. 11/17/17 22:10 Blood Culture - Preliminary Peripheral Venipuncture Culture is incubating and being continuously monitored for growth. Final report to follow. 11/12/17 16:11 Blood Culture - Final Peripheral Venipuncture No growth. Final report. - Clinical Findings Intake & Output: Intake & Output 11/18/17 11/19/17 11/19/17 23:59 07:59 15:59 Intake Total 1278 / 1278 1566 / 1566 555 / 555 Output Total 1000 / 1000 725 / 725 1100 / 1100 Balance 278 / 278 841 / 841 -545 / -545 Weight 128.1 kg - VTE Documentation of Mechanical Device: Intermittent pneumatic compression device Consult Discharge Plan - Plan [facility]errals: [facility] [Primary Care Provider] - <Daphne Arcos - Last Filed: 11/19/17 22:43> Date of Encounter: 11/19/17 Objective PUL Vital signs: Last Vital Signs Temp 98.7 F 11/19/17 19:54 Pulse 121 11/19/17 14:30 Resp 25 11/19/17 20:52 BP 124/92 11/19/17 20:52 Pulse Ox 93 11/19/17 14:30 Results - Laboratory Findings CBC and BMP: 11/19/17 05:04 11/19/17 05:04 ABG ABG pH 7.42 pH Units (7.32-7.45) 11/19/17 05:10 ABG pCO2 51 mmHg (35-45) H 11/19/17 05:10 ABG pO2 75 mmHg (85-104) L 11/19/17 05:10 ABG O2 Saturation 95 % (95-98) 11/19/17 05:10 PT/INR, D-dimer PT 18.7 Seconds (9.4-12.1) H 11/15/17 08:48 Abnormal lab findings: Abnormal lab results WBC 13.8 K/mcL (4.3-11.1) H 11/19/17 05:04 Hgb 10.4 g/dL (12.9-16.9) L 11/19/17 05:04 Hct 32.9 % (37.5-50.1) L 11/19/17 05:04 MCV 78.0 fL (83.0-100.0) L 11/19/17 05:04 MCH 24.6 pg (28.0-33.3) L 11/19/17 05:04 RDW 19.7 % (11.5-14.5) H 11/19/17 05:04 MPV 12.8 fL (9.4-12.4) H 11/19/17 05:04 Neutrophils # 10.1 K/mcL (1.6-8.9) H 11/19/17 05:04 Monocytes # 2.2 K/mcL (0.0-1.3) H 11/19/17 05:04 Nucleated RBCs/100 WBC 0.3 /100 WBC (0) H 11/12/17 15:00 Platelet Estimate Decreased (Normal) L 11/16/17 02:56 Immature Plt Fraction 17.5 % (1.1-6.1) H 11/18/17 04:30 Polychromasia 1+ (Not Present) A 11/16/17 02:56 Anisocytosis 1+ (Not Present) A 11/16/17 02:56 Microcytosis Present (Not Present) A 11/16/17 02:56 Kayla Cells 1+ (Not Present) A 11/16/17 02:56 PT 18.7 Seconds (9.4-12.1) H 11/15/17 08:48 ABG pCO2 51 mmHg (35-45) H 11/19/17 05:10 ABG pO2 75 mmHg (85-104) L 11/19/17 05:10 ABG HCO3 33 mEq/L (21-27) H 11/19/17 05:10 ABG Total CO2 35 mEq/L (20-26) H 11/19/17 05:10 ABG Base Excess 7 mEq/L (-2 to 3) H 11/19/17 05:10 Sodium 135 mEq/L (136-145) L 11/19/17 05:04 Chloride 97 mEq/L (98-107) L 11/19/17 05:04 Carbon Dioxide 32 mEq/L (23-29) H 11/19/17 05:04 BUN/Creatinine Ratio 32 (6-26) H 11/19/17 05:04 Glucose 124 mg/dL (70-105) H 11/19/17 05:04 POC Glucose 120 mg/dL (70-99) H 11/19/17 00:22 Venous Ioniz Calcium 1.10 mmol/L (1.15-1.35) L 11/19/17 09:46 Creatine Kinase 273 Units/L (30-223) H 11/14/17 17:03 B-Natriuretic Peptide 375 pg/mL (Less than 100) H 11/15/17 08:48 Serum Total Protein 6.0 g/dL (6.4-8.9) L 11/14/17 13:22 Albumin 2.7 g/dL (3.5-5.7) L 11/14/17 13:22 Albumin/Globulin Ratio 0.8 (1.1-2.2) L 11/14/17 13:22 Urine Protein 30 mg/dL (Neg-Trace) H 11/12/17 14:59 Urine Microscopic WBC 3-5 per hpf (0-3) H 11/12/17 14:59 Ur Squamous Epith Cells Many per lpf (None-Few) H 11/12/17 14:59 Nasal Screen MRSA (PCR) Positive (Negative) A 11/13/17 11:05 Staphylococcus sp PCR DETECTED (Not Detect) A 11/14/17 15:40 mecA-Methicil Res Gene DETECTED (Not Detect) A 11/14/17 15:40 - Microbiology Findings Microbiology Findings: Microbiology, Last 48 Hours 11/14/17 15:49 Blood Culture - Final Peripheral Venipuncture No growth. Final report. 11/19/17 12:15 Sputum Culture - Preliminary Sputum 11/14/17 15:40 Blood Culture - Final Central Venous Catheter Staphylococcus epidermidis 11/17/17 22:45 Blood Culture - Preliminary Central Venous Catheter Culture is incubating and being continuously monitored for growth. Final report to follow. 11/17/17 22:10 Blood Culture - Preliminary Peripheral Venipuncture Culture is incubating and being continuously monitored for growth. Final report to follow. - Clinical Findings Intake & Output: Intake & Output 11/19/17 11/19/17 11/19/17 07:59 15:59 23:59 Intake Total 1566 / 1566 940 / 940 311 / 311 Output Total 725 / 725 1775 / 1775 550 / 550 Balance 841 / 841 -835 / -835 -239 / -239 Weight 128.1 kg - Attending Attestation - Attending Attestation I saw and evaluated this patient and my medical decision-making was reviewed with the Resident Physician. I agree with the documented findings, disposition and treatment plan as described except to the extent set forth below. We independently had [id number] contact with the patient Patient seen and examined at bedside Labs, radiology, chart personally reviewed. Management was reviewed during multidisciplinary critical care rounds. CLINICAL SAFETY SPECIALIST:Patient is not following commands today . Pulm: Patient has component of acute on chronic diastolic heart failure with COPD started diuresing as tolerated , to continue bronchodilators and steroids. Low- tidal volume strategy . (FiO2 as possible to keep SPO2 around 90-92% liberate PEEP after FiO2 has come down. 11/15 Patient has oxygenation worsened , CXR worsening pulmonary edema and possible pneumonia since patient was spiking fever attempted diagnostic tap i myself did US of Lung which showed more consolidated lung than pleural effusion had a 1-2 cm layer pleural fluid was there IR was consulted even with their curvilinear probe there was no safe pocket was indentified . Will hold off diuresis for now . CT chest showed stable bilateral pleural effusion with worsening pulmonary consolidation changed to vancomycin to Linezolid 11/16 Patient V/Q mismatch worsened most likely due to worsening pulmonary edema and pneumonia and diabetes management this patient is in sepsis might require vasopressor support. titrated tidal volume and PEEP therapy 11/18 Patient has acceptable oxygenation and ventilation , patient still on high PEEP and FIO2 11/19 Patient has acceptable oxygenation has significant V/Q mismatch plan to wean down FIO2 and PEEP , patient might change the code status today . Cards: And hemodynamically stable echo showed EF of 55% acute on chronic diastolic heart failure. Will hold off diurertics looks like patient might develop septic shock 11/16 patient's blood pressure is borderline most likely due to sepsis complicated by diastolic heart failure expect he might need persists will hold off diuretics. 11/18 Will continue gentle diuresis as long as he is hemodynamically stable . 11/19 Hemodynamically stable patient will continue diuresis FEN-GI: As per dietary recommendations.will evaluate with RUQ ultrasound to make sure any infectious process going on since patient is having the high fevers 11/16 will advance as tolerated. We will follow dietary recs 11/18 To follow with dietary recs . 11/19 To follow with dietary recs Renal: Labs and output reviewed ID: Patient was spiking fever repeated the CT scan showed that he has worsening pneumonia will change Vancomycin and Linezolid to continue other antibiotics.. 11/17 Culture growing MR staphylococcus no aureus species 11/18 Culture growing MRSE to continue broad spectrum antibiotics repeat blood cultures 11/19 To continue broad spectrum antibiotics . Heme/Onc:To continue DVT prophylaxis Endo: Glucose Monitored Integ/MSK: Skin Care per routine ICU Nursing Protocol to prevent ulcers. Lines: All lines examined without evidence of infection : Dispo: Critically ill Long discussion with sister decided to change code status DNR CCA -DNI , family might change to comfort care today as patient doesnt want any aggressive measures.
[2017-11-19] MEDS: Norepinephrine 4 MG in D5% in Water 250 ML IVC SCH (14:47)
[2017-11-19] MEDS: Dexmedetomidine HCl 400 MCG/100 ML MLS IVC SCH (14:47)
[2017-11-19] MEDS ORDERED: *HR* LORazepam 2 MG/ML VIAL ONE (15:00)
[2017-11-19] MEDS: *HR* LORazepam 2 MG/ML VIAL IVP PRN ×3 (15:36→23:06)
[2017-11-19] MEDS ORDERED: Haloperidol Lactate 5 MG/ML VIAL ONE (16:18)
[2017-11-19] MEDS ORDERED: Haloperidol Lactate 5 MG/ML VIAL IVP PRN ×2 (16:18→22:57)
[2017-11-19] MEDS ORDERED: MethylPREDNISolone 40 MG/ML VIAL IVP SCH (18:00)
[2017-11-20] MEDS: *HR* LORazepam 2 MG/ML VIAL IVP PRN ×2 (02:03→05:50)
[2017-11-20] MEDS: FentaNYL (PF) 1,000 MCG in 0.9 % Sodium Chloride 80 ML IVC SCH ×4 (04:41→17:48)
[2017-11-20] MEDS: Dexmedetomidine HCl 400 MCG/100 ML MLS IVC SCH (04:41)
[2017-11-20] MEDS ORDERED: Haloperidol Lactate 5 MG/ML VIAL IVP PRN (07:39)
[2017-11-20] MEDS ORDERED: *HR* LORazepam 2 MG/ML VIAL IVP PRN (07:39)
[2017-11-20] MEDS ORDERED: Atropine Sulfate 1% 40 DROP/2 ML BOTTLE SL PRN (08:53)
[2017-11-20] MEDS ORDERED: Acetaminophen 650 MG RECTAL SUPP RC PRN (08:56)
[2017-11-20] MEDS ORDERED: Scopolamine Patch 1.5 MG PATCH.TD72 TD SCH (09:00)
[2017-11-20] MEDS ORDERED: *HR* LORazepam 2 MG/ML VIAL ONE (09:13)
[2017-11-20] MEDS ORDERED: Bisacodyl 10 MG RECTAL SUPPOSITORY RC PRN (09:19)
--- NOTE | 2017-11-20 09:19 | Palliative Progress Note ---
Date of Encounter: 11/20/17 Time of Encounter: 08:30 - Assessment and plan (1) Schizophrenia Current Visit: No Status: Chronic Assessment and plan: No verbalized complaints related to Schizophrenia diagnosis. Patient was reported to be very agitated over night. Scheduled Haldol for agitation. Qualifiers: Schizophrenia type: unspecified Qualified Code(s): F20.9 - Schizophrenia, unspecified (2) Atrial fibrillation with rapid ventricular response Current Visit: No Status: Acute Assessment and plan: Patient continues to have atrial fibrillation, irregular heartbeat with heart rate in the 160-170s during assessment. (3) Acute on chronic respiratory failure with hypercapnia Current Visit: Yes Status: Acute Assessment and plan: Patient's oxygen saturation 86-88% on 4L per NC during assessment. (4) COPD (chronic obstructive pulmonary disease) Current Visit: Yes Status: Acute Qualifiers: COPD type: unspecified COPD Qualified Code(s): J44.9 - Chronic obstructive pulmonary disease, unspecified (5) Encephalopathy Current Visit: Yes Status: Acute Assessment and plan: Patient remains to be altered. Haldol and Ativan ordered for Confusion. (6) Counseling regarding advanced directives and goals of care Current Visit: Yes Status: Acute Assessment and plan: Spoke with patient's sister, Shania, regarding goals of care. Patient's sister reported understanding that patient would be transitioned off ICU. Discussed possible transition to [facility] for Hospice care; patient's sister agreed to transfer. Patient's sister requested all forms regarding home be transferred with patient as she lives in [place]; would create a hardship for her to return. Also requested to be notified at time of transfer; notified Amena PEREIRA. Robin MADDOX notified of agreeing to transfer. (7) Agitation Current Visit: Yes Status: Acute Assessment and plan: Patient had frequent reports of agitation overnight. Scheduled Haldol for improved control. Changed Ativan IVP PRN to SL PRN. - Time Spent With Patient Total time spent is greater than 50% in coordination of care (as documented) at patient's floor/unit and/or counseling patient: 25 - 35 minutes - Subjective Interval history: Patient laying in bed with eyes open, looking around room upon arrival for assessment. Patient's nurse Amena present at bedside; no family present. Patient's family opted to withdraw care and transition to comfort care yesterday. Patient was extubated and transitioned to 4LNC. Patient currently has Fentanyl drip infusing. Patient has received 2 doses of Haldol in the last 24 hours and 0 doses of Ativan; noted to have increased agitation throughout the night. Patient currently has 150 mcg of Fentanyl infusing/hr; continues to reports some pain but unable to describe type of pain, intensity, duration, or location. Words remain garbled with copious oral secretions noted. Patient has nonproductive dry cough. Patient is alerted and would not answer orientation questions. - Constitutional Vitals: Abnormal lab results WBC 13.8 K/mcL (4.3-11.1) H 11/19/17 05:04 Hgb 10.4 g/dL (12.9-16.9) L 11/19/17 05:04 Hct 32.9 % (37.5-50.1) L 11/19/17 05:04 MCV 78.0 fL (83.0-100.0) L 11/19/17 05:04 MCH 24.6 pg (28.0-33.3) L 11/19/17 05:04 RDW 19.7 % (11.5-14.5) H 11/19/17 05:04 MPV 12.8 fL (9.4-12.4) H 11/19/17 05:04 Neutrophils # 10.1 K/mcL (1.6-8.9) H 11/19/17 05:04 Monocytes # 2.2 K/mcL (0.0-1.3) H 11/19/17 05:04 Nucleated RBCs/100 WBC 0.3 /100 WBC (0) H 11/12/17 15:00 Platelet Estimate Decreased (Normal) L 11/16/17 02:56 Immature Plt Fraction 17.5 % (1.1-6.1) H 11/18/17 04:30 Polychromasia 1+ (Not Present) A 11/16/17 02:56 Anisocytosis 1+ (Not Present) A 11/16/17 02:56 Microcytosis Present (Not Present) A 11/16/17 02:56 [place] Cells 1+ (Not Present) A 11/16/17 02:56 PT 18.7 Seconds (9.4-12.1) H 11/15/17 08:48 ABG pCO2 51 mmHg (35-45) H 11/19/17 05:10 ABG pO2 75 mmHg (85-104) L 11/19/17 05:10 ABG HCO3 33 mEq/L (21-27) H 11/19/17 05:10 ABG Total CO2 35 mEq/L (20-26) H 11/19/17 05:10 ABG Base Excess 7 mEq/L (-2 to 3) H 11/19/17 05:10 Sodium 135 mEq/L (136-145) L 11/19/17 05:04 Chloride 97 mEq/L (98-107) L 11/19/17 05:04 Carbon Dioxide 32 mEq/L (23-29) H 11/19/17 05:04 BUN/Creatinine Ratio 32 (6-26) H 11/19/17 05:04 Glucose 124 mg/dL (70-105) H 11/19/17 05:04 Venous Ioniz Calcium 1.10 mmol/L (1.15-1.35) L 11/19/17 09:46 Creatine Kinase 273 Units/L (30-223) H 11/14/17 17:03 B-Natriuretic Peptide 375 pg/mL (Less than 100) H 11/15/17 08:48 Serum Total Protein 6.0 g/dL (6.4-8.9) L 11/14/17 13:22 Albumin 2.7 g/dL (3.5-5.7) L 11/14/17 13:22 Albumin/Globulin Ratio 0.8 (1.1-2.2) L 11/14/17 13:22 Urine Protein 30 mg/dL (Neg-Trace) H 11/12/17 14:59 Urine Microscopic WBC 3-5 per hpf (0-3) H 11/12/17 14:59 Ur Squamous Epith Cells Many per lpf (None-Few) H 11/12/17 14:59 Nasal Screen MRSA (PCR) Positive (Negative) A 11/13/17 11:05 Staphylococcus sp PCR DETECTED (Not Detect) A 11/14/17 15:40 mecA-Methicil Res Gene DETECTED (Not Detect) A 11/14/17 15:40 General appearance: Present: disheveled, mild distress - Head Head exam: Present: atraumatic, normal inspection - Eye Eye exam: Present: normal appearance. Absent: periorbital swelling, periorbital tenderness - ENT ENT exam: Present: mucous membranes moist, normal external ear exam - Expanded ENT Exam Mouth exam: Present: moist. Absent: drooling - Neck Neck exam: Present: normal inspection - Respiratory Respiratory exam: Present: CTAB. Absent: accessory muscle use, respiratory distress - Cardiovascular Cardiovascular exam: Present: irregular rhythm - GI/Abdominal GI/Abdominal exam: Present: distended, hypoactive bowel sounds. Absent: tenderness - Rectal Rectal exam: Present: deferred - Extremities Exam Extremities exam: Present: normal inspection. Absent: calf tenderness, pedal edema - Neurological Exam Neurological exam: Present: altered - Psychiatric Psychiatric exam: Present: agitated (intermittently), flat affect - Skin Skin exam: Present: dry, intact, warm. Absent: mottled Palliative Quality Palliative Quality: Screen for Code Status: Yes, Screen for Goals of Care: Yes, Screen for Pain: Yes, If Pain Regimen Started, Initiate Bowel Regimen: Yes, Screen for Nausea/Vomitting: NA (Patient unable to answer) Code Status: 11/12/17 14:50 Resuscitation Status: Active [RES] Routine Comment: Resuscitation Status: Full Code 11/17/17 14:09 DNR [Resuscitation Status: Active] [RES] Routine Comment: Resuscitation Status: DNR-Comfort Care-Arrest 11/17/17 14:52 CODE [Resuscitation Status: Active] [RES] Routine Comment: Resuscitation Status: [id number] 11/19/17 15:05 CODE [Resuscitation Status: Active] [RES] Routine Comment: Resuscitation Status: DNR-Comfort Care - Labs CBC & Chem 7: 11/19/17 05:04 11/19/17 05:04 Labs: Laboratory Results - last 24 hr 11/19/17 11/19/17 11/19/17 04:23 07:51 09:46 POC Glucose 123 H 65 L Venous Ioniz Calcium 1.10 L 11/19/17 11:53 POC Glucose 82 Venous Ioniz Calcium - ABG Interpretation ABG results: ABG ABG pH 7.42 pH Units (7.32-7.45) 11/19/17 05:10 ABG pCO2 51 mmHg (35-45) H 11/19/17 05:10 ABG pO2 75 mmHg (85-104) L 11/19/17 05:10 ABG O2 Saturation 95 % (95-98) 11/19/17 05:10 PT/INR, D-dimer PT 18.7 Seconds (9.4-12.1) H 11/15/17 08:48 Consult Discharge Plan - Plan [facility]errals: [facility] [Primary Care Provider] -
[2017-11-20] MEDS: *HR* Metoprolol 5 MG/5 ML VIAL IVP SCH ×2 (09:52→09:57)
[2017-11-20] MEDS: Haloperidol Lactate 5 MG/ML VIAL IVP SCH ×4 (09:53→19:50)
--- NOTE | 2017-11-20 12:06 | Internal Med Progress Note ---
Date of Encounter: 11/20/17 Time of Encounter: 12:00 - Assessment and plan (1) Goals of care, counseling/discussion Current Visit: Yes Status: Acute Assessment and plan: I am seeing the patient for the first time as he has been here for about 8 days under the ICU team service. I Spoke to our palliative team, Whit Pena NP, who has been in contact with the family and has had multiple discussions with his medical power of assistant city attorney who would want the patient to be enrolled into hospice at the [place]. They do not want any further interventions. They would not want any IV antibiotics. No IV agents to control his heart rate. Patient cannot swallow and they do not want any invasive studies such as a barium swallow study. The patient has a heart rate of 140 and is in A. fib and he is on 2 L but otherwise has no other issues. For now I think given the circumstances and discussions with the family, I do not think there is much from my standpoint to do other than [facility] (2) Acute on chronic respiratory failure with hypercapnia Current Visit: Yes Status: Acute Assessment and plan: Patient is on 2 L currently and satting well. He is not receiving any antibiotics for pneumonia currently. Plan is as above (3) Encephalopathy Current Visit: Yes Status: Acute Assessment and plan: Seems to be chronic given his psychiatric issues. This is possibly exacerbated by anabolic and infectious causes as well. Patient will be going to the [place] for hospice. - Time Spent With Patient Total time spent is greater than 50% in coordination of care (as documented) at patient's floor/unit and/or counseling patient: - Subjective Interval history: Patient was seen and examined. The patient is in A. fib with RVR. He is not on telemetry. The patient has been hospitalized in the ICU and intubated for CHF exacerbation and pneumonia. His blood cultures are positive for MRSA on . His repeat blood cultures have been negative. He has been taken off all his medications including antibiotics and cardiac meds as well and he was extubated for comfort care. He is currently doing well on 2 L. He is not able to take any oral medications and medical power of assistant city attorney does not want any invasive procedures including a barium swallow or pain on IV antibiotics. Palliative has been involved and the plan was to send him to hospice in the [place]. The patient is encephalopathic and from I understand is that this is his baseline and he has a history of significant psychiatric issues including schizophrenia and being combative. He is afebrile. He mumbles his name. - Constitutional Vitals: Temp Pulse Resp BP Pulse Ox 99.4 F 140 12 101/72 83 11/20/17 08:00 11/20/17 09:00 11/20/17 08:00 11/20/17 08:00 11/20/17 08:00 Exam: GEN: NAD CVS: Tachycardic and irregular. S1, S2, No m/r/g RESP: Diminished with coarse breath sounds throughout ABD: Soft, NT, ND, +BS EXT: No edema. 2+ DP. No rashes NEURO: Confused but moves extremities spontaneously. Internal Medicine: Result - Labs CBC & Chem 7: 11/19/17 05:04 11/19/17 05:04 - ABG Interpretation ABG results: ABG ABG pH 7.42 pH Units (7.32-7.45) 11/19/17 05:10 ABG pCO2 51 mmHg (35-45) H 11/19/17 05:10 ABG pO2 75 mmHg (85-104) L 11/19/17 05:10 ABG O2 Saturation 95 % (95-98) 11/19/17 05:10 PT/INR, D-dimer PT 18.7 Seconds (9.4-12.1) H 11/15/17 08:48 - VTE Documentation of Mechanical Device: Intermittent pneumatic compression device Consult Discharge Plan - Plan [facility]errals: [facility] [Primary Care Provider] -
--- NOTE | 2017-11-20 13:03 | Physician Discharge Referral ---
Home Health/Hosp Referral Info Transfer to: Hospice - Diagnosis (1) Acute on chronic respiratory failure with hypercapnia Priority: Primary Status: Acute (2) Encephalopathy Priority: Primary Status: Acute - Respiratory Orders Smoking Cessation: Smoking cessation has been advised. For more information, call the [place] Tobacco Quit Line at 3-151-EGCD-NOW. - Transfer Medications Home Medications: Acetaminophen [Tylenol] 975 mg PO BID PRN 11/12/17 [History] Acetaminophen [Tylenol] 975 mg PO HS 11/12/17 [History] Ammonium Lactate [Amlactin] 1 appl TP DAILY 11/12/17 [History] Apixaban [Eliquis] 5 mg PO BID 11/12/17 [History] Atorvastatin Calcium [Lipitor] 80 mg PO DAILY 11/12/17 [History] Budesonide/Formoterol 160/4.5 [Symbicort 160/4.5] 2 puff IH BIDR 11/12/17 [ History] Buprenorphine HCl [Subutex] 8 mg SL DAILY 11/12/17 [History] Chlorhexidine Rinse 15 ml MM BID 11/12/17 [History] Diltiazem HCl [Diltiazem 24Hr Cd] 240 mg PO DAILY 11/12/17 [History] Divalproex (24 HR) [Depakote ER (24 HR)] 1,500 mg PO DAILY 11/12/17 [History] Fluphenazine [Prolixin] 7.5 mg PO TID 11/12/17 [History] Ipratropium/Albuterol Neb [Duoneb] 3 ml IH Q4HR PRN 11/12/17 [History] Ipratropium/Albuterol Sulfate [Combivent Respimat Inhal [place]] 1 puff IH BID [History] Lactulose 30 gm PO TID 11/12/17 [History] Losartan [Cozaar] 25 mg PO DAILY 11/12/17 [History] Mag Hydrox/Al Hydrox/Simeth [Maalox] 15 ml PO Q6HR PRN 11/12/17 [History] Magnesium Citrate [Citroma] 296 ml PO DAILY PRN 11/12/17 [History] Magnesium Oxide [Magnesium] 400 mg PO DAILY 11/12/17 [History] Metoprolol [Lopressor] 75 mg PO BID 11/12/17 [History] Pantoprazole Sodium [Protonix] 20 mg PO BID 11/12/17 [History] Potassium Chloride [K-Tab ER] 20 meq PO DAILY 11/12/17 [History] Tamsulosin [Flomax] 0.4 mg PO HS 11/12/17 [History] Torsemide [Demadex] 40 mg PO DAILY 11/12/17 [History] hydrOXYzine HCl [Hydroxyzine HCl] 50 mg PO HS PRN 11/12/17 [History] Allergies/Adverse Reactions: 3 Allergy/AdvReac Type Severity Reaction Status Date / Time No Known Allergies Allergy Verified 03/25/17 23:59 Certification: Further, I certify that my clinical findings support that this patient is homebound (i.e. absences from home require considerable and taxing effort and are for medical reasons or spiritism services or infrequently or short duration when for other reasons) because: Homebound Reason: Patient requires assistance of a person or device to safely leave home Attestation: My signature below is to certify that this patient is under my care and that I, or nurse practitioner, or a physician's veterinary assistant technician working with me, has a face-to -face encounter with this patient.
--- NOTE | 2017-11-20 13:05 | Discharge Summary ---
Orders not resulted at time of discharge: Pending orders 11/13/17 16:00 Ionized Calcium,venous blood Routine 11/17/17 22:10 Culture,Blood,Additional [BC] Routine 11/17/17 22:45 Culture,Blood [BC] Routine 11/19/17 09:00 Ionized Calcium,venous blood Routine 11/19/17 12:15 Sputum Culture [Culture,Sputum with Gram Stain] [] Stat Date of Encounter: 11/20/17 Time of Encounter: 13:03 - Discharge Diagnosis (1) Acute on chronic respiratory failure with hypercapnia Priority: Primary Status: Acute (2) Encephalopathy Priority: Primary Status: Acute Hospital course: Mr. Sykes is a 62 year old male with past medical history of COPD and CHF who was transferred from the [place] for respiratory failure. Patient was initially admitted on 11/06/2017 to the [facility] with a COPD exacerbation and acute hypercarbic respiratory failure. He he was also markedly encephalopathic/delirious during his stay at the [facility]. He was also suspected to have a component of CHF as he had pitting edema Patient was placed on BiPAP. Unfortunately with little improvement, and over time his respiratory status declined. He was intuabed and transferred to the ICU for CHF exacerbation and pneumonia. His blood cultures are positive for MRSA on 11/14. His repeat blood cultures have been negative. He failed to be weaned of the vent. Palliative were involved and spoke to the family including his MPOA. He was extubated with plans for comfort measures. He has been taken off all his medications including antibiotics and cardiac meds as wel. He was discharged to the [place] inpatient hospice. He was on 2 L [place]. He is not able to take any oral medications and medical power of real estate associate attorney does not want any invasive procedures including or a barium swallow or pain or IV antibiotics. The patient is encephalopathic and from what I understand is that this is his baseline and he has a history of significant psychiatric issues including schizophrenia and being combative. He is afebrile. He mumbles his name. He was discharged to the [facility] on 11/20 - Time Spent with Patient Total time spent providing and/or coordinating discharge services: Greater than 30 minutes - Discharge Medications Allergies/Adverse Reactions: 3 Allergy/AdvReac Type Severity Reaction Status Date / Time No Known Allergies Allergy Verified 03/25/17 23:59 Date of admission: 11/12/17 13:19 [facility] care physician: [facility] Consults: 11/12/17 16:44 Consult to Critical Care [CONS] Routine Consulting Provider: [facility] Reason for Consult: Acute hypercapnic and hypoxic respiratory failure. Call Completed: Yes 11/17/17 14:10 Consult to Palliative Care [CONS] Routine Comment: Consulting Provider: Palliative Care Christen Reason for Consult: meet with family, discuss goals of care Call Completed: Yes - Constitutional Vitals: Temp Pulse Resp BP Pulse Ox 99.4 F 140 12 101/72 83 11/20/17 08:00 11/20/17 09:00 11/20/17 08:00 11/20/17 08:00 11/20/17 08:00 Exam: GEN: NAD CVS: Tachycardic and irregular. S1, S2, No m/r/g RESP: Diminished with coarse breath sounds throughout ABD: Soft, NT, ND, +BS EXT: No edema. 2+ DP. No rashes NEURO: Confused but moves extremities spontaneously. - Patient Status Disposition: Hospice - Medical Facility Condition: Fair Overall status at discharge: patient is not back to baseline - Discharge Instructions Follow Up With: [facility] [Primary Care Provider] - - Diet and Activity Activity: increase activity as tolerated - VTE Documentation of Mechanical Device: Intermittent pneumatic compression device
[2017-11-20] MEDS: *HR* LORazepam Oral Conc 2 MG/ML SL PRN (19:52)
[2017-11-21] MEDS: FentaNYL (PF) 1,000 MCG in 0.9 % Sodium Chloride 80 ML IVC SCH (02:33)
[2017-11-21] MEDS: Haloperidol Lactate 5 MG/ML VIAL IVP SCH ×6 (02:34→20:20)
--- NOTE | 2017-11-21 09:48 | Internal Med Progress Note ---
Date of Encounter: 11/21/17 Time of Encounter: 09:47 - Assessment and plan (1) Acute on chronic respiratory failure with hypercapnia Current Visit: Yes Status: Acute Assessment and plan: Patient is on 2 L currently and satting well. He is not receiving any antibiotics for pneumonia currently. Plan is as above (2) Encephalopathy Current Visit: Yes Status: Acute Assessment and plan: Seems to be chronic given his psychiatric issues. This is possibly exacerbated by anabolic and infectious causes as well. Patient will be going to the [place] for hospice. - Time Spent With Patient Total time spent is greater than 50% in coordination of care (as documented) at patient's floor/unit and/or counseling patient: - Subjective Interval history: Patient was seen and examined. Awaiting placement to the [facility] hospice. The patient is in A. fib with RVR. He is not on telemetry. The patient has been hospitalized in the ICU and intubated for CHF exacerbation and pneumonia. His blood cultures are positive for MRSA on 11/14. His repeat blood cultures have been negative. He has been taken off all his medications including antibiotics and cardiac meds as well and he was extubated for comfort care. He is currently doing well on 2 L. He is not able to take any oral medications and medical power of talent scout does not want any invasive procedures including a barium swallow or pain on IV antibiotics. Palliative has been involved and the plan was to send him to hospice in the [place]. - Constitutional Vitals: Temp Pulse Resp BP Pulse Ox 99.0 F 147 22 139/90 66 11/21/17 07:09 11/21/17 07:09 11/21/17 07:09 11/21/17 07:09 11/21/17 07:09 Exam: GEN: NAD CVS: Tachycardic and irregular. S1, S2, No m/r/g RESP: Diminished with coarse breath sounds throughout ABD: Soft, NT, ND, +BS EXT: No edema. 2+ DP. No rashes NEURO: Confused but moves extremities spontaneously. Internal Medicine: Result - Labs CBC & Chem 7: 11/19/17 05:04 11/19/17 05:04 - ABG Interpretation ABG results: ABG ABG pH 7.42 pH Units (7.32-7.45) 11/19/17 05:10 ABG pCO2 51 mmHg (35-45) H 11/19/17 05:10 ABG pO2 75 mmHg (85-104) L 11/19/17 05:10 ABG O2 Saturation 95 % (95-98) 11/19/17 05:10 PT/INR, D-dimer PT 18.7 Seconds (9.4-12.1) H 11/15/17 08:48 - VTE Documentation of Mechanical Device: Intermittent pneumatic compression device Consult Discharge Plan - Plan [facility]errals: [facility] [Primary Care Provider] -
--- NOTE | 2017-11-21 11:22 | Palliative Progress Note ---
Date of Encounter: 11/21/17 Time of Encounter: 08:45 - Assessment and plan (1) Schizophrenia Current Visit: No Status: Chronic Assessment and plan: No verbalized complaints related to Schizophrenia diagnosis. Patient was reported to be very agitated over night. Scheduled Haldol for agitation. Ativan PRN, 1 dose given. Qualifiers: Schizophrenia type: unspecified Qualified Code(s): F20.9 - Schizophrenia, unspecified (2) Atrial fibrillation with rapid ventricular response Current Visit: No Status: Acute Assessment and plan: Patient continues to have atrial fibrillation, irregular heartbeat present. (3) Acute on chronic respiratory failure with hypercapnia Current Visit: Yes Status: Acute Assessment and plan: Patient's oxygen saturation 66% on room air during assessment. (4) COPD (chronic obstructive pulmonary disease) Current Visit: Yes Status: Acute Qualifiers: COPD type: unspecified COPD Qualified Code(s): J44.9 - Chronic obstructive pulmonary disease, unspecified (5) Encephalopathy Current Visit: Yes Status: Acute Assessment and plan: Patient remains to be altered. Mentation improved. Haldol and Ativan ordered for Confusion. Ativan and Haldol transitioned to . (6) Counseling regarding advanced directives and goals of care Current Visit: Yes Status: Acute Assessment and plan: Plan of care to transfer to [facility]. Spoke with Dr. Alon Azar from [facility] and gave report, including medical regimen. Transitioned patient to Morphine from Fentanyl matching dose with what ID going to prescribe. Notified surgery tech Shey of need to pull Central IV. Left for sister Shania regarding updated plan of care to transition to [facility]. (7) Agitation Current Visit: Yes Status: Acute - Time Spent With Patient Total time spent is greater than 50% in coordination of care (as documented) at patient's floor/unit and/or counseling patient: - Subjective Interval history: Patient laying in bed with eyes open, looking around room upon arrival for assessment. Patient awake, alert and oriented to person only. Patient requested "grape soda coke." Oxygen saturation 66% on room air during am assessment; no agonal breathing or cyanosis noted. Patient having had Fentanyl infusing at 50 mcg/hr. Patient has been receiving haldol scheduled. Patient has been receiving Ativan prn, 1 dose in the last 24 hours. Improved oral secretions noted. Denies pain, dyspnea, nausea, vomiting, or anxiety during assessment. - Constitutional Vitals: Abnormal lab results WBC 13.8 K/mcL (4.3-11.1) H 11/19/17 05:04 Hgb 10.4 g/dL (12.9-16.9) L 11/19/17 05:04 Hct 32.9 % (37.5-50.1) L 11/19/17 05:04 MCV 78.0 fL (83.0-100.0) L 11/19/17 05:04 MCH 24.6 pg (28.0-33.3) L 11/19/17 05:04 RDW 19.7 % (11.5-14.5) H 11/19/17 05:04 MPV 12.8 fL (9.4-12.4) H 11/19/17 05:04 Neutrophils # 10.1 K/mcL (1.6-8.9) H 11/19/17 05:04 Monocytes # 2.2 K/mcL (0.0-1.3) H 11/19/17 05:04 Nucleated RBCs/100 WBC 0.3 /100 WBC (0) H 11/12/17 15:00 Platelet Estimate Decreased (Normal) L 11/16/17 02:56 Immature Plt Fraction 17.5 % (1.1-6.1) H 11/18/17 04:30 Polychromasia 1+ (Not Present) A 11/16/17 02:56 Anisocytosis 1+ (Not Present) A 11/16/17 02:56 Microcytosis Present (Not Present) A 11/16/17 02:56 [place] Cells 1+ (Not Present) A 11/16/17 02:56 PT 18.7 Seconds (9.4-12.1) H 11/15/17 08:48 ABG pCO2 51 mmHg (35-45) H 11/19/17 05:10 ABG pO2 75 mmHg (85-104) L 11/19/17 05:10 ABG HCO3 33 mEq/L (21-27) H 11/19/17 05:10 ABG Total CO2 35 mEq/L (20-26) H 11/19/17 05:10 ABG Base Excess 7 mEq/L (-2 to 3) H 11/19/17 05:10 Sodium 135 mEq/L (136-145) L 11/19/17 05:04 Chloride 97 mEq/L (98-107) L 11/19/17 05:04 Carbon Dioxide 32 mEq/L (23-29) H 11/19/17 05:04 BUN/Creatinine Ratio 32 (6-26) H 11/19/17 05:04 Glucose 124 mg/dL (70-105) H 11/19/17 05:04 POC Glucose 103 mg/dL (70-99) H 11/20/17 07:52 Venous Ioniz Calcium 1.10 mmol/L (1.15-1.35) L 11/19/17 09:46 Creatine Kinase 273 Units/L (30-223) H 11/14/17 17:03 B-Natriuretic Peptide 375 pg/mL (Less than 100) H 11/15/17 08:48 Serum Total Protein 6.0 g/dL (6.4-8.9) L 11/14/17 13:22 Albumin 2.7 g/dL (3.5-5.7) L 11/14/17 13:22 Albumin/Globulin Ratio 0.8 (1.1-2.2) L 11/14/17 13:22 Urine Protein 30 mg/dL (Neg-Trace) H 11/12/17 14:59 Urine Microscopic WBC 3-5 per hpf (0-3) H 11/12/17 14:59 Ur Squamous Epith Cells Many per lpf (None-Few) H 11/12/17 14:59 Nasal Screen MRSA (PCR) Positive (Negative) A 11/13/17 11:05 Staphylococcus sp PCR DETECTED (Not Detect) A 11/14/17 15:40 mecA-Methicil Res Gene DETECTED (Not Detect) A 11/14/17 15:40 General appearance: Present: cooperative, no acute distress - Head Head exam: Present: atraumatic, normal inspection - Eye Eye exam: Present: normal appearance, conjuntiva pink. Absent: periorbital swelling, periorbital tenderness - ENT ENT exam: Present: mucous membranes moist, normal external ear exam - Neck Neck exam: Present: full ROM, normal inspection - Respiratory Respiratory exam: Present: rhonchi, wheezes. Absent: accessory muscle use, respiratory distress - Cardiovascular Cardiovascular exam: Present: irregular rhythm, tachycardia - GI/Abdominal GI/Abdominal exam: Present: hyperactive bowel sounds, soft. Absent: tenderness - Rectal Rectal exam: Absent: black stool, bloody stool - exam: Present: normal inspection (catheter intact.) - Extremities Exam Extremities exam: Present: full ROM, pedal edema - Back Exam Back exam: Present: full ROM, normal inspection - Neurological Exam Neurological exam: Present: alert, altered. Absent: oriented X3 - Psychiatric Psychiatric exam: Present: normal affect, normal mood. Absent: anxious - Skin Skin exam: Present: dry, intact, normal color, warm Palliative Quality Palliative Quality: Screen for Code Status: Yes, Screen for Goals of Care: Yes, Screen for Pain: Yes, If Pain Regimen Started, Initiate Bowel Regimen: Yes, Screen for Nausea/Vomitting: Yes Code Status: 11/12/17 14:50 Resuscitation Status: Active [RES] Routine Comment: Resuscitation Status: Full Code 11/17/17 14:09 DNR [Resuscitation Status: Active] [RES] Routine Comment: Resuscitation Status: DNR-Comfort Care-Arrest 11/17/17 14:52 CODE [Resuscitation Status: Active] [RES] Routine Comment: Resuscitation Status: [id number] 11/19/17 15:05 CODE [Resuscitation Status: Active] [RES] Routine Comment: Resuscitation Status: DNR-Comfort Care - Labs CBC & Chem 7: 11/19/17 05:04 11/19/17 05:04 Labs: Laboratory Results - last 24 hr 11/20/17 07:52 POC Glucose 103 H - ABG Interpretation ABG results: ABG ABG pH 7.42 pH Units (7.32-7.45) 11/19/17 05:10 ABG pCO2 51 mmHg (35-45) H 11/19/17 05:10 ABG pO2 75 mmHg (85-104) L 11/19/17 05:10 ABG O2 Saturation 95 % (95-98) 11/19/17 05:10 PT/INR, D-dimer PT 18.7 Seconds (9.4-12.1) H 11/15/17 08:48 Consult Discharge Plan - Plan Referrals: [facility] [Primary Care Provider] -
[2017-11-21] MEDS ORDERED: Morphine Oral CONC 5 MG/0.25 ML ORAL.SYG SL SCH (12:00)
[2017-11-21] MEDS: MORPHINE SUL Oral CONC 10 MG/0.5 ML ORAL.SYG SL SCH ×6 (12:32→22:44)
[2017-11-21] MEDS: *HR* LORazepam Oral Conc 2 MG/ML SL PRN (12:33)
[2017-11-22] MEDS: Haloperidol Lactate 5 MG/ML VIAL IVP SCH ×2 (00:15→04:47)
[2017-11-22] MEDS: MORPHINE SUL Oral CONC 10 MG/0.5 ML ORAL.SYG SL SCH ×5 (01:21→08:27)
[2017-11-22 07:28] VITALS: BP 122/99
[2017-11-22] MEDS: *HR* LORazepam Oral Conc 2 MG/ML SL PRN (08:28)
--- NOTE | 2017-11-22 09:28 | Internal Med Progress Note ---
Date of Encounter: 11/22/17 Time of Encounter: 09:26 - Assessment and plan (1) Acute on chronic respiratory failure with hypercapnia Current Visit: Yes Status: Acute Assessment and plan: Patient is on 2 L currently and satting well. He is not receiving any antibiotics for pneumonia currently. Plan is as above (2) Encephalopathy Current Visit: Yes Status: Acute Assessment and plan: Seems to be chronic given his psychiatric issues. This is possibly exacerbated by anabolic and infectious causes as well. Patient will be going to the [place] for hospice. - Time Spent With Patient Total time spent is greater than 50% in coordination of care (as documented) at patient's floor/unit and/or counseling patient: - Subjective Interval history: Patient was seen and examined. Going to be discharged to [place] today. Febrile. The patient is in A. fib with RVR. He is not on telemetry. The patient has been hospitalized in the ICU and intubated for CHF exacerbation and pneumonia. His blood cultures are positive for MRSA on 11/14. His repeat blood cultures have been negative. He has been taken off all his medications including antibiotics and cardiac meds as well and he was extubated for comfort care. He is currently doing well on 2 L. He is not able to take any oral medications and medical power of tax attorney does not want any invasive procedures including a barium swallow or pain on IV antibiotics. Palliative has been involved and the plan was to send him to hospice in the [place]. - Constitutional Vitals: Temp Pulse Resp BP Pulse Ox 98.9 F 146 38 122/99 93 11/22/17 07:22 11/22/17 07:22 11/22/17 07:22 11/22/17 07:22 11/22/17 07:22 Exam: GEN: NAD CVS: Tachycardic and irregular. S1, S2, No m/r/g RESP: Diminished with coarse breath sounds throughout ABD: Soft, NT, ND, +BS EXT: No edema. 2+ DP. No rashes NEURO: Confused but moves extremities spontaneously. Internal Medicine: Result - Labs CBC & Chem 7: 11/19/17 05:04 11/19/17 05:04 - ABG Interpretation ABG results: ABG ABG pH 7.42 pH Units (7.32-7.45) 11/19/17 05:10 ABG pCO2 51 mmHg (35-45) H 11/19/17 05:10 ABG pO2 75 mmHg (85-104) L 11/19/17 05:10 ABG O2 Saturation 95 % (95-98) 11/19/17 05:10 PT/INR, D-dimer PT 18.7 Seconds (9.4-12.1) H 11/15/17 08:48 - VTE Documentation of Mechanical Device: Intermittent pneumatic compression device Consult Discharge Plan - Plan Referrals: [facility] [Primary Care Provider] -
== END 2017-11-22 09:40 | disposition hospice, inpatient (51) | DRG 870 ==
LOC: ICNU 13:19 → 2ANU 11-20 19:24
PROVIDERS: ADMIT Internal Medicine; ATTEND Internal Medicine